=== PATIENT | female | born 1985 | race Caucasian/White ===

== ENCOUNTER 2021-05-23 20:33 | Emergency (ER) | payer OTHER, MEDICAID, SELFPAY ==
[2021-05-23] VITALS (7 sets, daily range): BP systolic 112–117; BP diastolic 73–74; PULSE 78–91; RESP 15–23; TEMP 37.3; O2SAT 100; BMI 24.3
--- NOTE | 2021-05-23 20:49 | DI.RAD.S_ITS ---
PROCEDURE: XR CHEST 1V INDICATIONS: chest pain TECHNIQUE: One view of the chest was acquired. COMPARISON: None. FINDINGS: Surgical changes and devices: None. Lungs and pleura: Lungs are clear. No pleural effusions or pneumothorax. Mediastinum: Mediastinal contours appear normal. Heart size is normal. Bones and chest wall: No suspicious bony lesions. Overlying soft tissues appear unremarkable. IMPRESSION: No acute cardiopulmonary abnormality. Dictated by: Héctor Devi M.D. on 05/23/2021 at 22:13 Approved by: Héctor Devi M.D. on 05/23/2021 at 22:14
--- NOTE | 2021-05-23 21:35 | ED_ITS ---
HPI - Chest Pain General Chief Complaint: Chest Pain Stated Complaint: CHEST PAIN Time Seen by Provider: 05/23/21 21:06 Source: patient Mode of arrival: Ambulatory Limitations: no limitations History of Present Illness HPI narrative: Patient is a 35-year-old female history of alcohol dependence, ascites, cirrhosis, GI bleeding, presenting with abdominal discomfort and heart palpitations. She was actually seen evaluated 5 days ago at [facility] for the same. She says her abdominal discomfort is not any worse she does not feel any did more distention in her abdomen that she did previously. Tonight she was having some palpitations and some mild chest discomfort. It has all gone now. She was not dizzy or lightheaded. She has been set up with a primary care provider whom she sees in a couple of days. She apparently has been sober is since December and then she relapsed but now is sober again. She recently moved to [facility] from [place]. She was previously admitted in [place] for multiple issues regarding cirrhosis. She currently denies any fever nausea vomiting dizziness lightheadedness painful or frequent urination no numbness tingling weakness she is not confused. Related Data Previous Rx's Medication Instructions Recorded hydrocodone 5 mg-acetaminophen 325 1 tab PO Q6H PRN #10 tab 05/24/21 mg tablet ondansetron 4 mg disintegrating 4 mg PO Q8H PRN #10 tab 05/24/21 tablet Allergies Allergy/AdvReac Type Severity Reaction Status Date / Time Penicillins Allergy Verified 05/23/21 20:40 Review of Systems Review of Systems Narrative: GENERAL: Denies chills, fatigue, malaise, fever, sweats, travel HEENT: Denies sinus pain, ear pain, sore throat, difficulty swallowing, neck pain RESPIRATORY: Denies dyspnea, cough, wheezing, hemoptysis, sputum. CARDIOVASCULAR: Palpitations GASTROINTESTINAL: See HPI : Denies dysuria, frequency, incontinence, hematuria, urinary retention, flank pain. MUSCULOSKELETAL: Denies weakness, joint pain, or bony pain SKIN: No rash, no erythema, no pruritus NEUROLOGIC: Denies weakness, dizziness, headache, numbness, change in speech, c onfusion PSYCHIATRIC: No concerning psychosocial issues. 12 point review of systems is negative except for those stated above and HPI Patient History Social History Smoking Status: Never smoker Smoking Status: Never smoker Substance Use Type: does not use Exam Initial Vital Signs Initial Vital Signs: Vital Signs Temperature 99.2 F 05/23/21 20:40 Pulse Rate 86 05/23/21 20:40 Respiratory Rate 15 05/23/21 20:40 Blood Pressure 112/73 05/23/21 20:40 Pulse Oximetry 100 05/23/21 20:40 GENERAL: Jaundiced 35-year-old female HEENT: Head atraumatic,EOMI, pupils reactive, face symmetric, [moist] mucous membranes CARDIOVASCULAR: Regular rate and rhythm without murmurs, rubs or gallops. RESPIRATORY: Breath sounds equal bilaterally, no wheezes rales or rhonchi. ABDOMEN: Soft, no significant distension no fluid wave mildly tender in left lower quadrant no guarding or rebound : No CVA tenderness EXTREMITIES: Normal range of motion, no clubbing or edema. Neurovascularly intact NEUROLOGICAL: Alert and oriented x4.Normal gait and speech. No tremors SKIN: Warm, dry, no laceration, no petechiae, no rashes or lesions. Jaundice Course Orders Ordered: ED Orders 05/23/21 20:49 XR chest 1V Stat EKG-12 Lead Stat 05/23/21 21:43 Complete Blood Count AUTO DIFF Stat Comprehensive Metabolic Panel Stat Lipase Stat Prothrombin Time INR Stat Troponin & CK Cardiac Panel Stat 05/23/21 22:22 US abdomen limited Stat 05/24/21 00:16 Urine Culture Stat Urine Microscopic Stat Discontinued Medications Hydrocodone Bitart/Acetaminophen (Hydrocodone/Acet 5/325 Prepack) 1 bottle MISC SEEINSTR ONE Stop: 05/24/21 00:20 Last Admin: 05/24/21 00:33 Dose: 1 bottle Documented by: ANUJ Hydromorphone HCl (Hydromorphone 2 Mg Inj) 1 mg SUBCUT Q4H PRN PRN Reason: Pain, Severe (7-10) Last Admin: 05/23/21 23:25 Dose: 1 mg Documented by: ANUJ Ondansetron HCl (Ondansetron 4 Mg Odt) 4 mg SL NOW ONE Stop: 05/23/21 23:03 Last Admin: 05/23/21 23:26 Dose: 4 mg Documented by: ANUJ Vital Signs Vital signs: Vital Signs - 8 hr 05/23/21 20:40 05/23/21 21:32 05/23/21 21:33 Temperature 99.2 F Pulse Rate 86 91 H 90 Respiratory Rate 15 Blood Pressure 112/73 117/74 Blood Pressure [Left Arm] Pulse Oximetry 100 100 100 05/23/21 22:00 05/23/21 22:30 05/23/21 23:00 Temperature Pulse Rate 80 78 80 Respiratory Rate 23 17 16 Blood Pressure Blood Pressure [Left Arm] Pulse Oximetry 100 100 100 05/23/21 23:30 05/24/21 00:00 05/24/21 00:30 Temperature Pulse Rate 82 88 84 Respiratory Rate 16 16 19 Blood Pressure Blood Pressure [Left Arm] Pulse Oximetry 100 99 100 05/24/21 00:31 05/24/21 00:33 Temperature Pulse Rate 84 86 Respiratory Rate Blood Pressure 99/58 L Blood Pressure [Left Arm] 99/58 L Pulse Oximetry 100 99 MDM - Chest Pain Lab Data Result diagrams: 05/23/21 21:43 05/23/21 21:43 Labs: Lab Results 05/23/21 05/23/21 05/23/21 Range/Units 21:43 21:43 21:43 WBC 5.2 (4.5-11.0) X10^3/uL RBC 2.19 L (4.0-5.2) X10^6/uL Hgb 8.8 L (12.0-16.0) g/dL Hct 25.2 L (36-46) % MCV 115.1 H (80-100) fL MCH 40.0 H (26-34) PG MCHC 34.8 (30-36) % RDW 12.3 (11.6-14.8) % Plt Count 196 (150-400) X10^3/uL Neut % (Auto) 56.8 (50-75) % Lymph % (Auto) 34.0 (25-40) % [place] % (Auto) 6.9 (3-14) % Eos % (Auto) 1.9 L (2-4) % Baso % (Auto) 0.4 (0-2) % Neut # (Auto) 2900 (3590-4166) /uL Lymph # (Auto) 1800 (9921-2573) /uL [place] # (Auto) 400 (0-900) /uL Eos # (Auto) 100 (0-450) /uL Baso # (Auto) 0 (0-100) /uL RBC Morphology See below Macrocytosis 2+ H PT 17.7 H (10.1-12.7) SECONDS INR 1.6 H (0.9-1.3) Sodium 142 (137-145) mmol/L Potassium 3.7 (3.4-5.1) mmol/L Chloride 110 H (98-107) mmol/L Carbon Dioxide 23 (22-32) mmol/L BUN 8 (7-17) mg/dL Creatinine 0.84 (0.52-1.04) mg/dL Estimated GFR > 60.0 (>60) mL/min BUN/Creatinine Ratio 9.5 (6-22) Glucose 89 (70-100) mg/dL Calcium 9.1 (8.4-10.2) mg/dL Total Bilirubin 8.9 H (0.2-1.3) mg/dL AST 130 H (14-36) IU/L ALT 41 H (<35) IU/L Alkaline Phosphatase 91 (38-126) U/L Total Creatine Kinase 32 (30-135) U/L CK-MB (CK-2) TNP CK-MB (CK-2) Rel Index TNP Troponin I < 0.012 (0.01-0.034) ng/mL Total Protein 6.9 (6.3-8.2) g/dL Albumin 3.6 (3.5-5.0) g/dL Globulin 3.3 (1.7-4.1) g/dL Albumin/Globulin Ratio 1.1 (1.0-2.8) Lipase 84 (23-300) U/L Urine RBC (0-5/HPF) Urine WBC (0-5/HPF) Ur Squamous Epith Cells (0-5/HPF) Urine Bacteria (None) Urine Mucus (Negative) Ur Culture Indicated? 05/24/21 Range/Units 00:16 WBC (4.5-11.0) X10^3/uL RBC (4.0-5.2) X10^6/uL Hgb (12.0-16.0) g/dL Hct (36-46) % MCV (80-100) fL MCH (26-34) PG MCHC (30-36) % RDW (11.6-14.8) % Plt Count (150-400) X10^3/uL Neut % (Auto) (50-75) % Lymph % (Auto) (25-40) % [place] % (Auto) (3-14) % Eos % (Auto) (2-4) % Baso % (Auto) (0-2) % Neut # (Auto) (1325-5199) /uL Lymph # (Auto) (6273-5952) /uL [place] # (Auto) (0-900) /uL Eos # (Auto) (0-450) /uL Baso # (Auto) (0-100) /uL RBC Morphology Macrocytosis PT (10.1-12.7) SECONDS INR (0.9-1.3) Sodium (137-145) mmol/L Potassium (3.4-5.1) mmol/L Chloride (98-107) mmol/L Carbon Dioxide (22-32) mmol/L BUN (7-17) mg/dL Creatinine (0.52-1.04) mg/dL Estimated GFR (>60) mL/min BUN/Creatinine Ratio (6-22) Glucose (70-100) mg/dL Calcium (8.4-10.2) mg/dL Total Bilirubin (0.2-1.3) mg/dL AST (14-36) IU/L ALT (<35) IU/L Alkaline Phosphatase (38-126) U/L Total Creatine Kinase (30-135) U/L CK-MB (CK-2) CK-MB (CK-2) Rel Index Troponin I (0.01-0.034) ng/mL Total Protein (6.3-8.2) g/dL Albumin (3.5-5.0) g/dL Globulin (1.7-4.1) g/dL Albumin/Globulin Ratio (1.0-2.8) Lipase (23-300) U/L Urine RBC 0-1/hpf (0-5/HPF) Urine WBC 1-5/hpf (0-5/HPF) Ur Squamous Epith Cells 1-5 /hpf (0-5/HPF) Urine Bacteria Many (>30) H (None) Urine Mucus 3+ H (Negative) Ur Culture Indicated? Specimen cultured Point of Care Testing Test Results Negative Urine Dip Bedside Urine Glucose Negative Bedside Urine Bilirubin ++ 2 Bedside Urine Ketone - Negative Urine Specific [place] 1.020 Bedside Urine Occult Blood - Negative Bedside Urine Protein +/- 15 Bedside Urine Urobilinogen +/- 1mg Bedside Urine Nitrite - Negative Bedside Urine Leukocytes + 70 Esterase Imaging Data US - abdomen: Radiologist's Impression: PROCEDURE: US ABDOMEN LIMITED ? INDICATIONS:? ASCITES ? TECHNIQUE:? Real-time focused scanning was performed of the abdomen, with image document ation.? ? COMPARISON:? None. ? FINDINGS:? Moderate ascites is noted in all 4 quadrants. ? IMPRESSION:? Moderate ascites. ? ? Dictated by: Héctor Devi M.D. on 05/23/2021 at 23:54 ? ? Approved by: Héctor Devi M.D. on 05/23/2021 at 23:55 ? MDM Narrative Medical decision making narrative: MELD-Na 20 Patient is extremely difficult I be start I looked on ultrasound. We were fortunately able to get lab draw. Blood work actually looks very stable and relatively un changed her even improved from [facility]. Bilirubin is trending down words it was previously 11, today is 8.9. Hemoglobin was previously 8.3 with hematocrit 25, today hemoglobin 8.8 and hematocrit 25.2. Overall her numbers actually appear very stable. She appears alert oriented and well. She has close follow-up outpatient already arranged in 2 days. At this time she has moderate ascites on ultrasound she had an abdominal CT earlier this week she is not having significant abdominal pain. Unlikely to have any complication from gastric sleeve lower ascites. She actually said that there is was diagnostic fluid drawn in the ED and she said it was not infectious this is confirmed by records. I do not have any suspicion that she has SBP at this time. At this time she has chronic stable underlying cirrhosis. Meld sodium score is 20 according to records it was previously 28. At this time she does not meet any admission criteria she has follow-up in 2 days. Recommend she follow up with primary care provider Discharge Plan Departure Patient Disposition: Home Clinical Impression: Palpitations, Ascites due to alcoholic cirrhosis Instructions: Arrhythmias, DI for Ascites Activity Restrictions/Additional Instructions: *You have been diagnosed with ascites and palpitation *What to do: At this time blood work overall looks stable. Your likely experiencing some heart palpitations we have not noticed any abnormality on the monitor or your EKG. Please follow-up with your primary care provider you may need a paracentesis again in the near future however not emergently today. *Continue to take medications as directed [place] 1 tablet every 6 hours only if needed for severe pain Zofran 4 mg every 8 hours if needed for nausea or vomiting *Follow up with your primary care provider in 2-3 days *Return to ER if you should have abdominal pain, fever, chest pain palpitations dizziness lightheadedness or any new, worsening or concerning symptoms CONTROLLED SUBSTANCE DISCHARGE (Narcotoic/benzodiazepine/Flexeril/Phenergan) 1. You have been prescribed narcotic medications, it does have acetaminophen/Tylenol/paracetamol in it, DO NOT TAKE MORE THAN 4,00mg in 24 hours of Tylenol. TRAMADOL DOES NOT CONTAIN TYLENOL 2. Please understand that we cannot provide further refills of narcotics, benzodiazepines or controlled substances through the ED and her pain management will need to be through your provider. 3. While on these medications you cannot drive or operate heavy machinery. 4. You cannot sign legal documents or perform any duties such as this. 5. As long as you're taking opiate pain medications he should also be taking a stool softener such as Colace, Dulcolax, MiraLAX or prune juice, to help avoid constipation. Prescriptions: New hydrocodone-acetaminophen 5-325 mg tablet 1 tab PO Q6H PRN (Reason: pain) Qty: 10 RF: 0 ondansetron 4 mg tablet,disintegrating 4 mg PO Q8H PRN (Reason: nausea and vomiting) Qty: 10 RF: 0
[2021-05-23 22:08] LABS: Add Manual Diff / Slide Review NO; Basophils Absolute Auto 0 /uL (0-100); Basophils Percent Auto 0.4 % (0-2); Eosinophils Absolute Auto 100 /uL (0-450); Eosinophils Percent Auto 1.9 % (2-4); Hematocrit 25.2 % (36-46); Hemoglobin 8.8 g/dL (12.0-16.0); Lymphocytes Absolute Auto 1800 /uL (1100-4500); Mean Corpuscular HGB Conc 34.8 % (30-36); Mean Corpuscular Volume 115.1 fL (80-100); Monocytes Absolute Auto 400 /uL (0-900); Monocytes Percent Auto 6.9 % (3-14); Neutrophils Absolute Auto 2900 /uL (1500-7000); Neutrophils Percent Auto 56.8 % (50-75); Platelet Count 196 X10^3/uL (150-400); Red Blood Cell Count 2.19 X10^6/uL (4.0-5.2); Red Cell Distribution Width 12.3 % (11.6-14.8); White Blood Cell Count 5.2 X10^3/uL (4.5-11.0)
[2021-05-23 22:09] LABS: INR 1.6 (0.9-1.3); Prothrombin Time 17.7 SECONDS (10.1-12.7)
[2021-05-23 22:13] LABS: Alanine Aminotransferase 41 IU/L (<35); Albumin 3.6 g/dL (3.5-5.0); Albumin Globulin Ratio 1.1 (1.0-2.8); Alkaline Phosphatase 91 U/L (38-126); Aspartate Aminotransferase 130 IU/L (14-36); BUN Creatinine Ratio 9.5 (6-22); Bilirubin Total 8.9 mg/dL (0.2-1.3); Blood Urea Nitrogen 8 mg/dL (7-17); Calcium 9.1 mg/dL (8.4-10.2); Carbon Dioxide 23 mmol/L (22-32); Chloride 110 mmol/L (98-107); Creatine Kinase 32 U/L (30-135); Estimated Glomerular Filt Rate > 60.0 mL/min (>60); Globulin 3.3 g/dL (1.7-4.1); Glucose 89 mg/dL (70-100); HEMOLYSIS < 15 (0-50); Lipase 84 U/L (23-300); Potassium 3.7 mmol/L (3.4-5.1); Sodium 142 mmol/L (137-145); Total Protein 6.9 g/dL (6.3-8.2)
--- NOTE | 2021-05-23 22:22 | DI.US.S_ITS ---
PROCEDURE: US ABDOMEN LIMITED INDICATIONS: ASCITES TECHNIQUE: Real-time focused scanning was performed of the abdomen, with image documentation. COMPARISON: None. FINDINGS: Moderate ascites is noted in all 4 quadrants. IMPRESSION: Moderate ascites. Dictated by: Héctor Devi M.D. on 05/23/2021 at 23:54 Approved by: Hcétor Devi M.D. on 05/23/2021 at 23:55
[2021-05-23 22:25] LABS: Troponin I < 0.012 ng/mL (0.01-0.034)
[2021-05-23 22:28] LABS: Macrocytosis 2+
[2021-05-23] MEDS: HYDROMORPHONE 2 MG INJ 1 MG SUBCUT (23:25)
[2021-05-23] MEDS: ONDANSETRON 4 MG ODT SL (23:26)
[2021-05-24] VITALS: PULSE 88; RESP 16; O2SAT 99
[2021-05-24 00:30] VITALS: PULSE 84; RESP 19; O2SAT 100
[2021-05-24 00:31] VITALS: BP 99/58; PULSE 84; O2SAT 100
[2021-05-24 00:33] VITALS: BP 99/58; PULSE 86; O2SAT 99
[2021-05-24] MEDS: HYDROCODONE/ACET 5/325 PREPACK 1 BOTTLE MISC (00:33)
[2021-05-24 00:34] LABS: RBC Urine 0-1/HPF (0-5/HPF); WBC Urine 1-5/HPF (0-5/HPF)
[2021-05-24 00:35] LABS: Bacteria Urine Many (>30); Culture Indicated Urine Specimen Cultured; Mucus Urine 3+ (Negative); Squamous Epithelial Cell Urine 1-5 /HPF (0-5/HPF)
== END 2021-05-24 00:49 | disposition home or self-care (01) ==
PROVIDERS: Emergency Provider Emergency Medicine
DX: K70.31 Alcoholic cirrhosis of liver with ascites (principal); R00.2 Palpitations; R07.9 Chest pain, unspecified
CPT/HCPCS: 36415; 71045; 76705; 80053; 81003; 81015; 81025; 82550; 83690; 84484; 85025; 85610; 87086; 93005; 93010; 99284; J1170

== ENCOUNTER → 2021-06-18 13:42 | Outpatient (CLI) | payer OTHER, MEDICAID, SELFPAY ==
[2021-06-18 15:05] LABS: BUN Creatinine Ratio 14.9 (6-22); Blood Urea Nitrogen 13 mg/dL (7-17); Calcium 10.1 mg/dL (8.4-10.2); Carbon Dioxide 26 mmol/L (22-32); Chloride 102 mmol/L (98-107); Estimated Glomerular Filt Rate > 60.0 mL/min (>60); Glucose 93 mg/dL (70-100); HEMOLYSIS < 15 (0-50); Sodium 139 mmol/L (137-145)
== END ==
PROVIDERS: Referring Provider Nurse Practitioner; Visit Provider Nurse Practitioner
DX: K70.31 Alcoholic cirrhosis of liver with ascites (principal)
CPT/HCPCS: 36415; 80048

== ENCOUNTER 2021-06-27 01:28 | Emergency (ER) | payer OTHER, MEDICAID, SELFPAY ==
[2021-06-27 01:38] VITALS: BP 115/61; PULSE 120; RESP 18; TEMP 36.6; O2SAT 100
--- NOTE | 2021-06-27 01:54 | ED_ITS ---
HPI - Back Pain/Injury General Chief Complaint: Back Pain/Injury Stated Complaint: fall, low back pain Time Seen by Provider: 06/27/21 01:53 Source: patient Mode of arrival: Ambulatory Limitations: no limitations History of Present Illness HPI Narrative: This is a 35-year-old female comes emergency department with complaint of fall yesterday, Tuesday morning. Patient states she slipped and landed on her buttocks and then fell on about 5 more stairs sliding down on her buttocks. She states that she felt like she landed on her tailbone and has pain in her lower back tailbone region and into the left buttock towards the knee. She has chronic numbness and tingling in both lower extremities and has not had any change in the pattern of these. She states this is from alcohol abuse she takes gabapentin daily for this. Patient denies any loss of bowel or bladder control. No saddle anesthesia. She has tried Tylenol with minimal improvement pain. Patient does have a history of cirrhosis, she states her ascites has improved. She takes a diuretic, gabapentin and additional medication for mental health. Patient has had surgery on L4-L5 in the past and has been told that her decide re-herniated afterwards. She does occasionally have back pain but this is different and worse than typical. Patient denies tobacco, she has been sober from alcohol for 9 months, she denies any illicit. Related Data Previous Rx's Medication Instructions Recorded hydrocodone 5 mg-acetaminophen 325 1 tab PO Q6H PRN #10 tab 05/24/21 mg tablet ondansetron 4 mg disintegrating 4 mg PO Q8H PRN #10 tab 05/24/21 tablet diazepam 10 mg tablet (Valium) 10 mg PO TID PRN #10 tab 06/27/21 hydrocodone 5 mg-acetaminophen 325 1 tab PO Q6H PRN #7 tab 06/27/21 mg tablet Allergies Allergy/AdvReac Type Severity Reaction Status Date / Time Penicillins Allergy Verified 05/23/21 20:40 Review of Systems Review of Systems ROS Unobtainable: All systems reviewed & are unremarkable except as noted in HPI and below Patient History Social History Smoking Status: Never smoker Smoking Status: Never smoker Substance Use Type: does not use Exam Narrative Exam Narrative: GENERAL: Alert and oriented x three, female in mild distress. HEENT: Head normocephalic, atraumatic, EOMI, pupils reactive, face symmetric, moist mucous membranes NECK: Supple, full range of motion CARDIOVASCULAR: Regular rate and rhythm without murmurs, rubs or gallops. RESPIRATORY: Breath sounds equal bilaterally, no wheezes rales or rhonchi. ABDOMEN: Soft, nontender. Normoactive bowel sounds all 4 quadrants. No guarding or rebound, rigidity, no mass : No CVA tenderness BACK: No cervical, thoracic vertebral point tenderness. Patient is tender over L5/S1 and coccyx. She also has some tenderness over the left SI region. Has mildly decreased range of motion Rectal exam is deferred. Muscle strength is 5/5 in lower extremities, DTRs are 2/4 and lower extremities. Dorsalis pedis and tibialis pulses are 2+ and lower extremities. Sensation is intact in the lower extremities. EXTREMITIES: Normal range of motion, no clubbing or edema. Neurovascularly intact NEUROLOGICAL: Cranial nerves II through XII grossly intact. Moving all extremities SKIN: Warm, dry, no petechiae, no rashes or lesions. Initial Vital Signs Initial Vital Signs: Vital Signs Temperature 98 F 06/27/21 01:38 Pulse Rate 120 H 06/27/21 01:38 Respiratory Rate 18 06/27/21 01:38 Blood Pressure 115/61 06/27/21 01:38 Pulse Oximetry 100 06/27/21 01:38 Course Orders Ordered: ED Orders 06/27/21 02:02 XR lumbar spine 2-3V Stat Discontinued Medications Diazepam (Diazepam 5 Mg Tablet) 10 mg PO NOW ONE Stop: 06/27/21 02:03 Last Admin: 06/27/21 02:09 Dose: 10 mg Documented by: VERITO Ketorolac Tromethamine (Ketorolac 30 Mg/Ml Vial) 30 mg IM NOW ONE Stop: 06/27/21 02:03 Last Admin: 06/27/21 02:09 Dose: 30 mg Documented by: VERITO Reevaluation(s) Reevaluation #1: Patient is feeling more comfortable now. She was able to sleep here in the department for a period of time. Reviewed her imaging findings today. Time: 04:01 Vital Signs Vital signs: Vital Signs - 8 hr 06/27/21 01:38 06/27/21 04:08 Temperature 98 F Pulse Rate 120 H 88 Respiratory Rate 18 16 Blood Pressure 115/61 100/59 L Pulse Oximetry 100 98 [facility] - Back Pain/Injury Imaging Data Lspine xray: Radiologist's Impression: Moderate degenerative changes within the lower lumbar spine. No acute bony abnormalities present. Abnormal curvature of the spine, suggesting muscular spasm. [facility] Narrative Medical decision making narrative: Is a 35-year-old female comes with complaint of low back pain after a fall. Patient does have a history of prior back surgery with known herniated discs. She does not have other red flag symptoms although she was slightly tachycardic initially upon arrival she is appropriate heart rate on examination for myself. Patient's pain was improved with Toradol and Valium. She states she found the Valium most helpful. Patient's x-ray imaging shows degenerative changes. Return precautions were discussed with patient. She has follow-up on Tuesday with primary care. Discharge Plan Departure Patient Disposition: Home Clinical Impression: Low back pain Instructions: DI for Low Back Pain Activity Restrictions/Additional Instructions: Follow up with your physician for recheck this week if your symptoms are not improving. You may take pain medication 1 tab every 6 hours as needed. This medication can make you sleepy do not drive, perform hazardous activities or make any major decisions while taking it. This medication will make you constipated please take a stool softener once to twice daily until stools are soft and regular. You may take valium 1 tablet every 8 hours as needed for muscle spasm. Prescription sent to [facility] in [place] Please return if you are having rapidly worsening symptoms, uncontrolled pain, loss of bowel or bladder control, new numbness, weakness, loss of sensation, in the mid to lift or move her leg or other new or concerning symptoms. Prescriptions: New hydrocodone-acetaminophen 5-325 mg tablet 1 tab PO Q6H PRN (Reason: pain) Qty: 7 0RF diazepam [Valium] 10 mg tablet 10 mg PO TID PRN (Reason: muscle spasm) Qty: 10 0RF No Action hydrocodone-acetaminophen 5-325 mg tablet 1 tab PO Q6H PRN (Reason: pain) Qty: 10 0RF ondansetron 4 mg tablet,disintegrating 4 mg PO Q8H PRN (Reason: nausea and vomiting) Qty: 10 0RF Referrals: Miscellaneous,Doctor, MD [Primary Care Provider] -
--- NOTE | 2021-06-27 02:02 | DI.RAD.S_ITS ---
PROCEDURE: XR LUMBAR SPINE 2-3V INDICATIONS: fall, back pain L radicular pain, hx Lumbar back sx TECHNIQUE: 2 views of the lumbar spine were acquired. COMPARISON: None. FINDINGS: Bones: 5 [id number] vertebrae are present. There is normal bony alignment. No vertebral body compression fractures. No suspicious bony lesions. There is mild rightward curvature of the lumbar spine. Degenerative disc disease at L4-5 and L5-S1 with anterior osteophytes. Facet arthrosis at L4-5 and L5-S1 Soft tissues: Overlying bowel gas pattern is normal. No suspicious soft tissue calcifications. Status post cholecystectomy. An IUD is present in the pelvis midline. IMPRESSION: 1. Degenerative disc disease and facet arthrosis at L4-5 and L5-S1. 2. No acute abnormality. Dictated by: Héctor Devi M.D. on 06/27/2021 at 6:38 Approved by: Héctor Devi M.D. on 06/27/2021 at 6:39
[2021-06-27] MEDS: diazePAM 5 MG TABLET 10 MG PO (02:09)
[2021-06-27] MEDS: KETOROLAC 30 MG/ML VIAL IM (02:09)
[2021-06-27 04:08] VITALS: BP 100/59; PULSE 88; RESP 16; O2SAT 98
== END 2021-06-27 04:08 | disposition home or self-care (01) ==
PROVIDERS: Emergency Provider Emergency Medicine
DX: M54.50 Low back pain, unspecified (principal); Z98.890 Other specified postprocedural states
CPT/HCPCS: 72100; 96372; 99283; J1885

== ENCOUNTER 2021-07-17 15:18 | Emergency (ER) | payer OTHER, MEDICAID, SELFPAY ==
[2021-07-17] VITALS (10 sets, daily range): BP systolic 98–113; BP diastolic 60–69; PULSE 81–96; RESP 11–19; TEMP 36.6; O2SAT 97–100; BMI 23.4
--- NOTE | 2021-07-17 15:55 | DI.CT.S_ITS ---
PROCEDURE: CT HEAD/BRAIN WO CON INDICATIONS: fall, hit head TECHNIQUE: Noncontrast 4.5 mm thick angled axial sections acquired from the foramen magnum to the vertex, with coronal and sagittal reformats. For radiation dose reduction, the following was used: automated exposure control, adjustment of mA and/or kV according to patient size. COMPARISON: None. FINDINGS: Image quality: Excellent. CSF spaces: Basal cisterns are patent. No extra-axial fluid collections. Ventricles are normal in size and shape. Brain: No midline shift. No intracranial masses or hemorrhage. Charles-white matter interface is normal. Skull and face: Calvarium and visualized facial bones are intact, without suspicious lesions. Sinuses: Visualized sinuses and mastoids are clear. IMPRESSION: No acute intracranial disease process. Dictated by: Naima Little MD, PhD on 07/17/2021 at 16:18 Approved by: Naima Little MD, PhD on 07/17/2021 at 16:20
--- NOTE | 2021-07-17 16:17 | PC.NURSE ---
Addendum entered by Dawna Woodall R.N. 07/17/21 19:36: Patient took home med Midodrine 5mg with Dr Bryantools approval. Original Note: Patient with end stage liver failure per patient, hx of syncope recently. Reports that she felt light headed since waking up this morning, was walking to kitchen when she passed out unknown LOC, reports hitting her head but landed on butt first. C/o back pain and headache.
--- NOTE | 2021-07-17 16:33 | PC.NURSE ---
Took of patients earrings and put in medicine cup, put medicine cup in patient's purse with patient's acknowledgement.
--- NOTE | 2021-07-17 17:23 | ED.DIZZY ---
HPI - Dizziness General Chief Complaint: Syncope Stated Complaint: Blood pressure and passed out this morning Time Seen by Provider: 07/17/21 17:14 Source: patient Mode of arrival: Wheelchair Limitations: no limitations History of Present Illness HPI Narrative: The patient has a history of hypotension, liver failure, and ascites. She gave up alcohol for months ago, being told she had less than 10% chance of living at that time. She has improved, ascites improved dramatically. She requires Midodrine for hypotension. She was fixing breakfast this morning. She felt dizzy. She has been taking her medications. She was going to try to sit down, instead she fell to the floor striking the back of her head. She thinks her memory is intact. She has posterior headache, she still feels a little confused. She has posterior neck pain, as well as tailbone pain. She is wondering about her liver test, due to the confusion. Related Data Previous Rx's Medication Instructions Recorded hydrocodone 5 mg-acetaminophen 325 1 tab PO Q6H PRN #10 tab 05/24/21 mg tablet ondansetron 4 mg disintegrating 4 mg PO Q8H PRN #10 tab 05/24/21 tablet diazepam 10 mg tablet (Valium) 10 mg PO TID PRN #10 tab 06/27/21 hydrocodone 5 mg-acetaminophen 325 1 tab PO Q6H PRN #7 tab 06/27/21 mg tablet methocarbamol 750 mg tablet 750 mg PO Q6H PRN #30 tab 07/17/21 tramadol 50 mg tablet 50 mg PO Q6-8H PRN #20 tab 07/17/21 Allergies Allergy/AdvReac Type Severity Reaction Status Date / Time Penicillins Allergy Verified 07/15/21 09:10 Review of Systems Constitutional Constitutional: Reports as per HPI, Denies chills, Denies fever(s), Denies frequent falls and Reports headache(s) Comments: Disease as noted HPI. Eyes Eyes: Denies change in vision ENT Ears, Nose, Mouth, and Throat: Reports dizziness, Denies ear discharge, Denies facial pain, Reports headache(s), Reports neck pain and Denies sore throat Cardiovascular Cardiovascular: Denies chest pain, Denies syncope, Denies rapid heart rate, Denies pedal edema and Denies dyspnea Respiratory Respiratory: Denies cough and Denies dyspnea Gastrointestinal Gastrointestinal: Denies abdominal pain and Denies nausea Genitourinary Comments: She is not Musculoskeletal Musculoskeletal: Reports neck pain Integumentary/Breasts Skin/Breast: Denies rash and Denies jaundice Neurologic Neurologic: Reports confusion, Reports dizziness, Denies syncope, Denies frequent falls and Reports headache(s) Psychiatric Psychiatric: Reports confusion Hematologic/Lymphatic On Anticoagulants: No Patient History Medical History (Updated 07/17/21 @ 20:03 by Kirt Jovel MD) Alcoholic liver failure Hypotension Social History Smoking Status: Former smoker Smoking Status: Former smoker Substance Use Type: does not use Exam Initial Vital Signs Initial Vital Signs: Vital Signs Temperature 97.8 F 07/17/21 15:48 Pulse Rate 96 H 07/17/21 15:48 Respiratory Rate 16 07/17/21 15:48 Blood Pressure 113/61 07/17/21 15:48 Pulse Oximetry 97 07/17/21 15:48 Const General: cooperative, healthy appearing and No ill appearing HENMT Head: normal to inspection and scalp tenderness (Occipital scalp discomfort without palpable deformity) Ears: TM's normal bilaterally Mouth: oral mucosae normal Eyes General: appearance normal, both eyes and all related structures Pupils: PERRL EOM: EOM intact bilaterally Neck Neck: normal visual inspection and other (Slight tenderness over the C5-6 region of the lumbar spine.) Chest Chest: normal inspection of the chest Resp Effort & Inspection: normal respiratory effort Cardio Rate: regular rate Rhythm: regular rhythm Heart Sounds: S1 normal, S2 normal and no murmurs GI Inspection: normal to inspection and non-distended Palpation: soft Auscultation: normal bowel sounds Back/Spine/Pelvis Back: normal to inspection Other: Tenderness over the lumbar spine without palpable deformity. Course Course Course Narrative: The patient was given Dilaudid for pain initially. Ammonia levels normal. LFTs are reassuring. Apparently, compared to prior lab values, she is quite happy with her lab tests. She has headache, feels slightly confused, she appears to have a mild concussion. C-spine and L-spine were cleared x-rays. Head CT was benign. She is discharged home with tramadol for pain, Robaxin for neck and back spasm. She is improved at time of discharge. Orders Ordered: ED Orders 07/17/21 15:55 CT head/brain wo con Stat 07/17/21 16:07 Complete Blood Count AUTO DIFF Stat Comprehensive Metabolic Panel Stat Lipase Stat Troponin & CK Cardiac Panel Stat 07/17/21 18:11 Ammonia (NH3) Stat 07/17/21 18:57 XR cervical spine 2V or 3V Stat XR lumbar spine 2-3V Stat Discontinued Medications Hydromorphone HCl (Hydromorphone 1 Mg Inj) 1 mg IM NOW ONE Stop: 07/17/21 18:59 Last Admin: 07/17/21 19:05 Dose: 1 mg Documented by: JANICE Vital Signs Vital signs: Vital Signs - 8 hr 07/17/21 15:48 07/17/21 16:32 07/17/21 16:33 Temperature 97.8 F Pulse Rate 96 H 84 84 Respiratory Rate 16 15 19 Blood Pressure 113/61 103/65 Pulse Oximetry 97 99 100 07/17/21 17:00 07/17/21 17:30 07/17/21 18:00 Temperature Pulse Rate 81 86 83 Respiratory Rate 14 18 18 Blood Pressure 108/66 106/61 98/60 Pulse Oximetry 100 100 100 07/17/21 18:30 07/17/21 19:00 07/17/21 19:30 Temperature Pulse Rate 83 89 89 Respiratory Rate 14 16 13 Blood Pressure Pulse Oximetry 100 98 100 MDM - Dizziness Lab Data Result diagrams: 07/17/21 16:07 07/17/21 16:07 Labs: Lab Results 07/17/21 07/17/21 07/17/21 Range/Units 16:07 16:07 18:11 WBC 4.5 (4.5-11.0) X10^3/uL RBC 3.57 L (4.0-5.2) X10^6/uL Hgb 12.5 (12.0-16.0) g/dL Hct 35.7 L (36-46) % MCV 100.2 H (80-100) fL MCH 35.2 H (26-34) PG MCHC 35.1 (30-36) % RDW 12.9 (11.6-14.8) % Plt Count 178 (150-400) X10^3/uL Neut % (Auto) 46.7 L (50-75) % Lymph % (Auto) 42.7 H (25-40) % [place] % (Auto) 6.8 (3-14) % Eos % (Auto) 2.8 (2-4) % Baso % (Auto) 1.0 (0-2) % Neut # (Auto) 2100 (6256-0465) /uL Lymph # (Auto) 1900 (2462-2307) /uL [place] # (Auto) 300 (0-900) /uL Eos # (Auto) 100 (0-450) /uL Baso # (Auto) 0 (0-100) /uL Sodium 141 (137-145) mmol/L Potassium 3.1 L (3.4-5.1) mmol/L Chloride 105 (98-107) mmol/L Carbon Dioxide 28 (22-32) mmol/L BUN 17 (7-17) mg/dL Creatinine 1.00 (0.52-1.04) mg/dL Estimated GFR > 60.0 (>60) mL/min BUN/Creatinine Ratio 17.0 (6-22) Glucose 132 H (70-100) mg/dL Calcium 10.6 H (8.4-10.2) mg/dL Total Bilirubin 4.4 H (0.2-1.3) mg/dL AST 49 H (14-36) IU/L ALT 29 (<35) IU/L Alkaline Phosphatase 71 (38-126) U/L Ammonia 16 (9-30) umol/L Total Creatine Kinase 25 L (30-135) U/L CK-MB (CK-2) TNP CK-MB (CK-2) Rel Index TNP Troponin I < 0.012 (0.01-0.034) ng/mL Total Protein 9.2 H (6.3-8.2) g/dL Albumin 4.9 (3.5-5.0) g/dL Globulin 4.3 H (1.7-4.1) g/dL Albumin/Globulin Ratio 1.1 (1.0-2.8) Lipase 121 (23-300) U/L Imaging Data CT scan - head: Radiologist's Impression: No acute findings C-spine x-ray:: Radiologist's Impression: No acute findings L-spine x-ray:: Radiologist's Impression: No acute fracture seen. Discharge Plan Departure Patient Disposition: Home Clinical Impression: Concussion, Cervical myofascial strain, Acute lumbar myofascial strain Instructions: Whiplash, Concussion Activity Restrictions/Additional Instructions: Tylenol, low dosing as directed by your counter tender. Tramadol every 6 hours for added pain control. Robaxin every 6 hours for spasm. Apply ice packs to the back your head, neck and back frequently for the next 2 days. Continue your regular medications. Return here as needed. Prescriptions: New tramadol 50 mg tablet 50 mg PO Q6-8H PRN (Reason: pain) Qty: 20 0RF methocarbamol 750 mg tablet 750 mg PO Q6H PRN (Reason: spasm) Qty: 30 0RF No Action hydrocodone-acetaminophen 5-325 mg tablet 1 tab PO Q6H PRN (Reason: pain) Qty: 10 0RF ondansetron 4 mg tablet,disintegrating 4 mg PO Q8H PRN (Reason: nausea and vomiting) Qty: 10 0RF hydrocodone-acetaminophen 5-325 mg tablet 1 tab PO Q6H PRN (Reason: pain) Qty: 7 0RF diazepam [Valium] 10 mg tablet 10 mg PO TID PRN (Reason: muscle spasm) Qty: 10 0RF Referrals: Miscellaneous,Doctor, MD [Primary Care Provider] -
[2021-07-17 17:38] LABS: Add Manual Diff / Slide Review NO; Basophils Absolute Auto 0 /uL (0-100); Eosinophils Absolute Auto 100 /uL (0-450); Eosinophils Percent Auto 2.8 % (2-4); Hematocrit 35.7 % (36-46); Hemoglobin 12.5 g/dL (12.0-16.0); Lymphocytes Absolute Auto 1900 /uL (1100-4500); Lymphocytes Percent Auto 42.7 % (25-40); Mean Corpuscular HGB Conc 35.1 % (30-36); Mean Corpuscular Hemoglobin 35.2 PG (26-34); Mean Corpuscular Volume 100.2 fL (80-100); Monocytes Absolute Auto 300 /uL (0-900); Monocytes Percent Auto 6.8 % (3-14); Neutrophils Absolute Auto 2100 /uL (1500-7000); Neutrophils Percent Auto 46.7 % (50-75); Platelet Count 178 X10^3/uL (150-400); Red Blood Cell Count 3.57 X10^6/uL (4.0-5.2); Red Cell Distribution Width 12.9 % (11.6-14.8); White Blood Cell Count 4.5 X10^3/uL (4.5-11.0)
[2021-07-17 17:44] LABS: Alanine Aminotransferase 29 IU/L (<35); Albumin 4.9 g/dL (3.5-5.0); Albumin Globulin Ratio 1.1 (1.0-2.8); Alkaline Phosphatase 71 U/L (38-126); Aspartate Aminotransferase 49 IU/L (14-36); Bilirubin Total 4.4 mg/dL (0.2-1.3); Blood Urea Nitrogen 17 mg/dL (7-17); Calcium 10.6 mg/dL (8.4-10.2); Carbon Dioxide 28 mmol/L (22-32); Chloride 105 mmol/L (98-107); Creatine Kinase 25 U/L (30-135); Estimated Glomerular Filt Rate > 60.0 mL/min (>60); Globulin 4.3 g/dL (1.7-4.1); Glucose 132 mg/dL (70-100); HEMOLYSIS < 15 (0-50); Lipase 121 U/L (23-300); Potassium 3.1 mmol/L (3.4-5.1); Sodium 141 mmol/L (137-145); Total Protein 9.2 g/dL (6.3-8.2)
[2021-07-17 17:56] LABS: Troponin I < 0.012 ng/mL (0.01-0.034)
[2021-07-17 18:33] LABS: Ammonia (NH3) 16 umol/L (9-30)
--- NOTE | 2021-07-17 18:57 | DI.RAD.S_ITS ---
PROCEDURE: XR CERVICAL SPINE 2V OR 3V INDICATIONS: Lower cervical pain, status post fall. TECHNIQUE: 3 view(s) of the cervical spine were acquired. COMPARISON: None. FINDINGS: Bones: No fractures or dislocations to the T1 level. The lateral masses of C1 appear intact on the odontoid view. No suspicious bony lesions. Soft tissues: No prevertebral soft tissue swelling. IMPRESSION: No evidence acute cervical fracture or dislocation. Dictated by: Leo Frausto M.D. on 07/17/2021 at 19:41 Approved by: Leo Frausto M.D. on 07/17/2021 at 19:42
--- NOTE | 2021-07-17 18:57 | DI.RAD.S_ITS ---
PROCEDURE: XR LUMBAR SPINE 2-3V INDICATIONS: Lumbar pain status post fall TECHNIQUE: 3 views of the lumbar spine were acquired. COMPARISON: [facility], CR, XR LUMBAR SPINE 2-3V, 06/27/2021, 1:58. FINDINGS: Bones: 5 [id number] vertebrae are present. There is normal bony alignment. No vertebral body compression fractures. No suspicious bony lesions. Lower lumbar facet arthropathy. Soft tissues: Overlying bowel gas pattern is normal. No suspicious soft tissue calcifications. IMPRESSION: Lower lumbar facet arthropathy. No evidence acute bony abnormality of the lumbar spine. If clinical suspicion and/or symptoms persist, further assessment with repeat plain films, or advanced imaging (e.g., CT, MRI, or bone scan) may be helpful for further assessment. Dictated by: Leo Frausto M.D. on 07/17/2021 at 19:43 Approved by: Leo Frausto M.D. on 07/17/2021 at 19:45
[2021-07-17] MEDS: HYDROMORPHONE 1 MG INJ IM (19:05)
[2021-07-17] MEDS: TRAMADOL 50 MG PREPACK 1 BOTTLE MISC (19:54)
[2021-07-17] MEDS: methocarbamoL 500 MG TABLET 750 MG PO (19:55)
== END 2021-07-17 20:05 | disposition home or self-care (01) ==
PROVIDERS: Emergency Provider Emergency Medicine
DX: S06.0X9A Concussion with loss of consciousness of unspecified duration, initial encounter (principal); S16.1XXA Strain of muscle, fascia and tendon at neck level, initial encounter; S39.012A Strain of muscle, fascia and tendon of lower back, initial encounter; W18.30XA Fall on same level, unspecified, initial encounter
CPT/HCPCS: 36415; 70450; 72040; 72100; 80053; 82140; 82550; 83690; 84484; 85025; 96372; 99284; J1170

== ENCOUNTER 2021-07-21 21:58 | Emergency (ER) | payer OTHER, MEDICAID, SELFPAY ==
[2021-07-21 22:12] VITALS: BP 115/63; PULSE 83; RESP 18; TEMP 36.6; O2SAT 100; BMI 23.4
[2021-07-21 22:34] LABS: COVID19 -Nasal RAPID Negative (Negative)
--- NOTE | 2021-07-21 22:38 | PC.NURSE ---
Patient's keys given to harrison Keith.
--- NOTE | 2021-07-21 23:04 | ED.GENADULT ---
HPI - General Adult General Chief complaint: Upper Respiratory Symptoms Stated complaint: covid symptoms, exposure Time Seen by Provider: 07/21/21 22:13 Source: family Mode of arrival: Ambulatory History of Present Illness HPI narrative: Patient is a 34-year-old female. She has been vaccinated against COVID. Her boyfriend whom with she lives is unvaccinated and tested positive today. Patient states she is having some congestion and a cough and runny nose. Has not tried anything for her symptoms prior to arrival Related Data Previous Rx's Medication Instructions Recorded hydrocodone 5 mg-acetaminophen 325 1 tab PO Q6H PRN #10 tab 05/24/21 mg tablet ondansetron 4 mg disintegrating 4 mg PO Q8H PRN #10 tab 05/24/21 tablet diazepam 10 mg tablet (Valium) 10 mg PO TID PRN #10 tab 06/27/21 hydrocodone 5 mg-acetaminophen 325 1 tab PO Q6H PRN #7 tab 06/27/21 mg tablet methocarbamol 750 mg tablet 750 mg PO Q6H PRN #30 tab 07/17/21 tramadol 50 mg tablet 50 mg PO Q6-8H PRN #20 tab 07/17/21 Allergies Allergy/AdvReac Type Severity Reaction Status Date / Time Penicillins Allergy Verified 07/15/21 09:10 Review of Systems Constitutional Constitutional: Denies fever(s) ENT Ears, Nose, Mouth, and Throat: Reports system reviewed and no additional complaints, except as documented Cardiovascular Cardiovascular: Reports system reviewed and no additional complaints, except as documented Respiratory Respiratory: Reports system reviewed and no additional complaints, except as documented Integumentary/Breasts Skin/Breast: Reports system reviewed and no additional complaints, except as documented Hematologic/Lymphatic On Anticoagulants: No Patient History Medical History Alcoholic liver failure Hypotension Social History Smoking Status: Former smoker Smoking Status: Former smoker Substance Use Type: does not use Exam Initial Vital Signs Initial Vital Signs: Vital Signs Temperature 97.8 F 07/21/21 22:12 Pulse Rate 83 07/21/21 22:12 Respiratory Rate 18 07/21/21 22:12 Blood Pressure 115/63 07/21/21 22:12 Pulse Oximetry 100 07/21/21 22:12 HENMT Head: normal to inspection and normocephalic Resp Effort & Inspection: normal respiratory effort Cardio Rate: regular rate Skin General: no rashes or lesions noted Neuro General: patient alert, patient awake and moves all extremities Extrem General: normal to inspection Psych Appearance: grossly normal Course Orders Ordered: ED Orders 07/21/21 22:05 COVID19 -Nasal swab/Pre-Proc Stat Vital Signs Vital signs: Vital Signs - 8 hr 07/21/21 22:12 Temperature 97.8 F Pulse Rate 83 Respiratory Rate 18 Blood Pressure 115/63 Pulse Oximetry 100 Medical Decision Making Lab Data Labs: Lab Results 07/21/21 Range/Units 22:05 SARS-CoV-2 (PCR) Negative (Negative) MDM Narrative Medical decision making narrative: Patient's COVID test was negative. She is not hypoxic. No respiratory distress. We did discuss the potential that it is too early for a COVID test to be positive given her exposure history. Informed her that if she develops symptoms that she should assume that she is positive in quarantine following current CDC guidelines. Patient was given return precautions. She expressed understanding and agreement. Discharge Plan Departure Patient Disposition: Home Clinical Impression: Encounter for laboratory testing for COVID-19 virus Instructions: DI for COVID-19 (Suspected or Confirmed ) Activity Restrictions/Additional Instructions: Your COVID test today is negative. Please follow all CDC guidelines with regard to quarantine in given your exposure. Return to the emergency department for any new or worsening symptoms. Prescriptions: No Action hydrocodone-acetaminophen 5-325 mg tablet 1 tab PO Q6H PRN (Reason: pain) Qty: 10 0RF ondansetron 4 mg tablet,disintegrating 4 mg PO Q8H PRN (Reason: nausea and vomiting) Qty: 10 0RF hydrocodone-acetaminophen 5-325 mg tablet 1 tab PO Q6H PRN (Reason: pain) Qty: 7 0RF diazepam [Valium] 10 mg tablet 10 mg PO TID PRN (Reason: muscle spasm) Qty: 10 0RF tramadol 50 mg tablet 50 mg PO Q6-8H PRN (Reason: pain) Qty: 20 0RF methocarbamol 750 mg tablet 750 mg PO Q6H PRN (Reason: spasm) Qty: 30 0RF
== END 2021-07-21 23:08 | disposition home or self-care (01) ==
PROVIDERS: Emergency Provider Emergency Medicine
DX: R09.81 Nasal congestion (principal); R05.9 Cough, unspecified; Z20.822 Contact with and (suspected) exposure to COVID-19
CPT/HCPCS: 87635; 99281; 99282; C9803

== ENCOUNTER 2021-08-08 07:15 | Emergency (ER) | payer OTHER, MEDICAID, SELFPAY ==
[2021-08-08] VITALS (12 sets, daily range): BP systolic 83–111; BP diastolic 44–59; PULSE 98–117; RESP 20; TEMP 37.8–39.6; O2SAT 96–100
[2021-08-08 08:29] LABS: Add Manual Diff / Slide Review NO; Basophils Absolute Auto 0 /uL (0-100); Basophils Percent Auto 0.3 % (0-2); Eosinophils Absolute Auto 0 /uL (0-450); Eosinophils Percent Auto 0.8 % (2-4); Hematocrit 36.5 % (36-46); Hemoglobin 12.7 g/dL (12.0-16.0); Lymphocytes Absolute Auto 400 /uL (1100-4500); Lymphocytes Percent Auto 7.7 % (25-40); Mean Corpuscular HGB Conc 34.8 % (30-36); Mean Corpuscular Hemoglobin 34.4 PG (26-34); Mean Corpuscular Volume 98.7 fL (80-100); Monocytes Absolute Auto 300 /uL (0-900); Monocytes Percent Auto 6.8 % (3-14); Neutrophils Absolute Auto 4300 /uL (1500-7000); Neutrophils Percent Auto 84.4 % (50-75); Platelet Count 106 X10^3/uL (150-400); White Blood Cell Count 5.1 X10^3/uL (4.5-11.0)
[2021-08-08 08:35] LABS: Alanine Aminotransferase 31 IU/L (<35); Albumin 4.2 g/dL (3.5-5.0); Albumin Globulin Ratio 1.3 (1.0-2.8); Alkaline Phosphatase 52 U/L (38-126); Aspartate Aminotransferase 55 IU/L (14-36); BUN Creatinine Ratio 20.4 (6-22); Bilirubin Total 3.2 mg/dL (0.2-1.3); Blood Urea Nitrogen 19 mg/dL (7-17); Calcium 10.1 mg/dL (8.4-10.2); Carbon Dioxide 24 mmol/L (22-32); Chloride 105 mmol/L (98-107); Estimated Glomerular Filt Rate > 60.0 mL/min (>60); Globulin 3.3 g/dL (1.7-4.1); Glucose 107 mg/dL (70-100); HEMOLYSIS 22 (0-50); Potassium 4.8 mmol/L (3.4-5.1); Sodium 137 mmol/L (137-145); Total Protein 7.5 g/dL (6.3-8.2)
[2021-08-08] MEDS: HYDROMORPHONE 0.5 MG INJ IV (09:00)
[2021-08-08] MEDS: SODIUM CHLORIDE 0.9% 1,000 ML 1000 ML IV (09:00)
[2021-08-08] MEDS: METOCLOPRAMIDE 10 MG/2 ML INJ IV (09:00)
[2021-08-08] MEDS: KETOROLAC 30 MG/ML VIAL 15 MG IV (09:00)
[2021-08-08 09:08] LABS: COVID19 -Nasal RAPID Negative (Negative)
--- NOTE | 2021-08-08 10:13 | ED_ITS ---
HPI - General Adult General Chief complaint: Fever Stated complaint: Fever, tachy from booster Time Seen by Provider: 08/08/21 07:23 Source: patient Mode of arrival: EMS History of Present Illness HPI narrative: 35-year-old woman with a history of alcohol related end-stage liver disease who presents today complaining of feeling generally unwell, myalgias, headaches all developing after her COVID booster. She had mild symptoms only after her 2nd shot. She describes high temperatures this morning. No significant cough, no vomiting diffuse abdominal pain, no diarrhea. Related Data Previous Rx's Medication Instructions Recorded hydrocodone 5 mg-acetaminophen 325 1 tab PO Q6H PRN #10 tab 05/24/21 mg tablet ondansetron 4 mg disintegrating 4 mg PO Q8H PRN #10 tab 05/24/21 tablet diazepam 10 mg tablet (Valium) 10 mg PO TID PRN #10 tab 06/27/21 hydrocodone 5 mg-acetaminophen 325 1 tab PO Q6H PRN #7 tab 06/27/21 mg tablet methocarbamol 750 mg tablet 750 mg PO Q6H PRN #30 tab 07/17/21 tramadol 50 mg tablet 50 mg PO Q6-8H PRN #20 tab 07/17/21 Allergies Allergy/AdvReac Type Severity Reaction Status Date / Time Penicillins Allergy Verified 07/15/21 09:10 Review of Systems Review of Systems Narrative: Remainder of complete review of systems is otherwise unremarkable except for that included in the HPI. Patient History Medical History Abnormal Pap smear of cervix Alcoholic liver failure Anemia Anxiety Chicken pox GERD (gastroesophageal reflux disease) Hypotension Social History Smoking Status: Former smoker Smoking Status: Former smoker Substance Use Type: does not use Exam Initial Vital Signs Initial Vital Signs: Vital Signs Temperature 103.2 F H 08/08/21 07:24 Pulse Rate 108 H 08/08/21 07:24 Respiratory Rate 20 08/08/21 07:24 Blood Pressure 111/58 L 08/08/21 07:24 Pulse Oximetry 100 08/08/21 07:24 General: Chronically ill-appearing, uncomfortable secondary to fever and myalgias but Able to give a complete and coherent history. HEENT: Moist mucous membranes, mildly jaundiced sclera with reactive pupils, Neck: No JVD, supple Respiratory: Lungs are clear to auscultation, no wheezing no rales no rhonchi. Full and symmetrical air movement Cardiac: Tachycardic butRegular rate and rhythm no murmurs no bruits Abdomen: Soft, mild diffuse tenderness without rebound or guarding good bowel tones, no obvious ascites no flank pain Skin: Warm and dry, multiple telangiectasias over her upper chest Neurologic: Globally weak but Grossly neurologically intact with no obvious asymmetries or abnormalities Extremities: No trauma, well perfused Psych: Cooperative, appropriate insight and affect Course Orders Ordered: Discontinued Medications Hydromorphone HCl (Hydromorphone 0.5 Mg Inj) 0.5 mg IV NOW ONE Stop: 08/08/21 08:24 Last Admin: 08/08/21 09:00 Dose: 0.5 mg Documented by: LOWELL Sodium Chloride (Normal Saline 0.9%) 1,000 mls @ 1,000 mls/hr IV BOLUS ONE Stop: 08/08/21 09:22 Last Infusion: 08/08/21 10:38 Dose: 0 mls/hr Documented by: Admin: 08/08/21 09:00 Dose: 1,000 mls/hr Documented by: LOWELL Ketorolac Tromethamine (Ketorolac 30 Mg/Ml Vial) 15 mg IV NOW ONE Stop: 08/08/21 08:24 Last Admin: 08/08/21 09:00 Dose: 15 mg Documented by: LOWELL Metoclopramide HCl (Metoclopramide 10 Mg/2 Ml Inj) 10 mg IV NOW ONE Stop: 08/08/21 08:24 Last Admin: 08/08/21 09:00 Dose: 10 mg Documented by: LOWELL Oxycodone HCl (Oxycodone Ir 5 Mg Tablet) 5 mg PO NOW ONE Stop: 08/08/21 10:21 Last Admin: 08/08/21 10:37 Dose: 5 mg Documented by: LOWELL Vital Signs Vital signs: Vital Signs - 8 hr 08/08/21 07:24 08/08/21 09:09 08/08/21 09:30 Temperature 103.2 F H Pulse Rate 108 H 106 H 109 H Respiratory Rate 20 Blood Pressure 111/58 L 98/52 L Pulse Oximetry 100 96 97 08/08/21 10:00 08/08/21 10:02 08/08/21 10:10 Temperature Pulse Rate 111 H 117 H 111 H Respiratory Rate Blood Pressure 83/44 L 84/45 L 92/51 L Pulse Oximetry 96 97 97 08/08/21 10:30 08/08/21 10:58 Temperature 100.1 F H Pulse Rate 106 H Respiratory Rate Blood Pressure 91/44 L Pulse Oximetry 96 Medical Decision Making Lab Data Result diagrams: 08/08/21 07:35 08/08/21 07:35 Labs: Lab Results 08/08/21 08/08/21 08/08/21 Range/Units 07:35 07:35 08:35 WBC 5.1 (4.5-11.0) X10^3/uL RBC 3.70 L (4.0-5.2) X10^6/uL Hgb 12.7 (12.0-16.0) g/dL Hct 36.5 (36-46) % MCV 98.7 (80-100) fL MCH 34.4 H (26-34) PG MCHC 34.8 (30-36) % RDW 13.0 (11.6-14.8) % Plt Count 106 L (150-400) X10^3/uL Neut % (Auto) 84.4 H (50-75) % Lymph % (Auto) 7.7 L (25-40) % [place] % (Auto) 6.8 (3-14) % Eos % (Auto) 0.8 L (2-4) % Baso % (Auto) 0.3 (0-2) % Neut # (Auto) 4300 (9669-1435) /uL Lymph # (Auto) 400 L (5244-8405) /uL [place] # (Auto) 300 (0-900) /uL Eos # (Auto) 0 (0-450) /uL Baso # (Auto) 0 (0-100) /uL Sodium 137 (137-145) mmol/L Potassium 4.8 (3.4-5.1) mmol/L Chloride 105 (98-107) mmol/L Carbon Dioxide 24 (22-32) mmol/L BUN 19 H (7-17) mg/dL Creatinine 0.93 (0.52-1.04) mg/dL Estimated GFR > 60.0 (>60) mL/min BUN/Creatinine Ratio 20.4 (6-22) Glucose 107 H (70-100) mg/dL Calcium 10.1 (8.4-10.2) mg/dL Total Bilirubin 3.2 H (0.2-1.3) mg/dL AST 55 H (14-36) IU/L ALT 31 (<35) IU/L Alkaline Phosphatase 52 (38-126) U/L Total Protein 7.5 (6.3-8.2) g/dL Albumin 4.2 (3.5-5.0) g/dL Globulin 3.3 (1.7-4.1) g/dL Albumin/Globulin Ratio 1.3 (1.0-2.8) SARS-CoV-2 (PCR) Negative (Negative) MDM Narrative Medical decision making narrative: 35-year-old woman with fevers, myalgias and headache after her COVID booster. History of liver failure. She chronically has hypertension is on midodrine 3 times a day to do with this. On arrival in the emergency room she is given a L of fluid, Toradol to help with her fever a half a mg of Dilaudid to help with her pain. Continues to complain of significant myalgias and headache. Labs are at her baseline or better. COVID test itself is negative. She is eating and drinking without difficulty. I think this is and impressive response to her COVID booster however no evidence of worsening liver failure, sepsis for new developing COVID. As she is able to eat and drink I believe she is safe for home discharge despite her continued complaints of severe myalgias headache. Discharge Plan Departure Patient Disposition: Home Clinical Impression: Adverse effect of COVID-19 vaccine Activity Restrictions/Additional Instructions: Thank you for coming in today I am sorry that your having so many side effects from your COVID vaccine however, that likely also means that your having a brisk immune response which was the whole point of the vaccine in the 1st place. Symptoms typically resolve within 24-36 hours and typically are resolved much mo re quickly than with viral syndromes. If symptoms are persisting tomorrow, please feel free to return to the emergency department I wish you the best Prescriptions: No Action hydrocodone-acetaminophen 5-325 mg tablet 1 tab PO Q6H PRN (Reason: pain) Qty: 10 0RF ondansetron 4 mg tablet,disintegrating 4 mg PO Q8H PRN (Reason: nausea and vomiting) Qty: 10 0RF hydrocodone-acetaminophen 5-325 mg tablet 1 tab PO Q6H PRN (Reason: pain) Qty: 7 0RF diazepam [Valium] 10 mg tablet 10 mg PO TID PRN (Reason: muscle spasm) Qty: 10 0RF tramadol 50 mg tablet 50 mg PO Q6-8H PRN (Reason: pain) Qty: 20 0RF methocarbamol 750 mg tablet 750 mg PO Q6H PRN (Reason: spasm) Qty: 30 0RF
[2021-08-08] MEDS: OXYCODONE IR 5 MG TABLET PO (10:37)
== END 2021-08-08 12:14 | disposition home or self-care (01) ==
PROVIDERS: Emergency Provider Emergency Medicine
DX: R50.83 Postvaccination fever (principal); T50.B95A Adverse effect of other viral vaccines, initial encounter; Z87.891 Personal history of nicotine dependence; Z20.822 Contact with and (suspected) exposure to COVID-19
CPT/HCPCS: 80053; 85025; 87635; 96361; 96374; 96375; 99284; C9803; J1170; J1885; J2765

== ENCOUNTER 2021-12-21 18:26 | Emergency (ER) | payer OTHER, MEDICAID, SELFPAY ==
[2021-12-21] VITALS (12 sets, daily range): BP systolic 132–151; BP diastolic 71–95; PULSE 89–114; RESP 18–20; TEMP 37.2; O2SAT 96–100
--- NOTE | 2021-12-21 18:54 | ED_ITS ---
HPI - Fall General Chief Complaint: Fall Stated Complaint: Passed out hit floor, many bumps on head Time Seen by Provider: 12/21/21 18:51 Source: patient Mode of arrival: Ambulatory History of Present Illness HPI Narrative: 36-year-old female who comes emergency department today for evaluation of injuries that she sustained when she states that approximately 17 30 this afternoon she was standing at a kitchen sink when she states that she passed out. Prior to passing out she did not have any lightheadedness or vision changes or palpitations or shortness of breath. She is unsure exactly what happened. She does not remember falling specifically. She was over at a neighbor's house helping them do some cleaning and cooking dinner when the event happened. She remembers waking up t her neighbor standing over top of her telling her that he was going to call 911. She states that she told him that she was close enough to the hospital that she would just come here on her own. She stated that earlier today she was at a tanning salon where she states that while she was standing she started to have some involuntary shaking movements. She remembers having these movements. She did not fall. She denies injured herself during this time. She has never had this before. She currently she states she is having a headache but no vision changes and no chest pain no shortness of breath no abdominal pain no nausea vomiting. No extremity injuries. No dental injuries. She does have a history of alcohol abuse but has been sober for several months and also has a history of ?liver failure ?for which she is followed by the [facility]. Related Data Previous Rx's Medication Instructions Recorded hydrocodone 5 mg-acetaminophen 325 1 tab PO Q6H PRN pain #10 tabs 05/24/21 mg tablet ondansetron 4 mg disintegrating 4 mg PO Q8H PRN nausea and 05/24/21 tablet vomiting #10 tabs diazepam 10 mg tablet (Valium) 10 mg PO TID PRN muscle spasm #10 06/27/21 tabs hydrocodone 5 mg-acetaminophen 325 1 tab PO Q6H PRN pain #7 tabs 06/27/21 mg tablet methocarbamol 750 mg tablet 750 mg PO Q6H PRN spasm #30 tabs 07/17/21 tramadol 50 mg tablet 50 mg PO Q6-8H PRN pain #20 tabs 07/17/21 Allergies Allergy/AdvReac Type Severity Reaction Status Date / Time Penicillins Allergy Verified 07/15/21 09:10 Review of Systems Review of Systems ROS Unobtainable: All systems reviewed & are unremarkable except as noted in HPI and below Patient History Medical History Abnormal Pap smear of cervix Alcoholic liver failure Anemia Anxiety Chicken pox GERD (gastroesophageal reflux disease) Hypotension Social History Smoking Status: Former smoker Smoking Status: Former smoker Substance Use Type: does not use Exam Initial Vital Signs Initial Vital Signs: Vital Signs Temperature 99.0 F 12/21/21 18:40 Pulse Rate 114 H 12/21/21 18:40 Respiratory Rate 20 12/21/21 18:40 Blood Pressure 142/95 H 12/21/21 18:40 Pulse Oximetry 97 12/21/21 18:40 Oxygen Delivery Method 12/21/21 18:40 Const General: comfortable, well developed, well groomed, No in distress and No ill appearing HENMT Head: contusion (Of right eye), hematoma (Above right eye) and No palpable skull fracture Ears: hearing grossly normal bilaterally and TM's normal bilaterally Nose: external nose normal Face and sinus: normal facial exam, no crepitus, edema (Under right mandible), no lacerations and no maxillary instability Mouth: oral mucosae normal, lip normal and tongue normal Teeth and gingiva: dentition normal Throat: posterior oropharynx normal Eyes Pupils: PERRL EOM: EOM intact bilaterally Neck Other: Ecchymosis located around the anterior portion of the neck it is bilateral but right-sided greater than left. There is no crepitus. No lacerations. Chest Chest: normal inspection of the chest, No crepitus and No tenderness Resp Effort & Inspection: normal respiratory effort Auscultation: clear to auscultation bilaterally Cardio Rate: tachycardic Rhythm: regular rhythm GI Inspection: normal to inspection and non-distended Palpation: soft and No tender Back/Spine/Pelvis Cervical Spine: No cervical spinal tenderness Skin Other: Patient does have a large hematoma in the right frontal region above her right eye. There are no breaks in the skin in this area. She also has fluctuance in the right submandibular region and quite a bit of ecchymosis in the anterior portion of her neck. Neuro General: patient alert, patient awake, patient oriented x3 and moves all extremities Extrem General: normal to inspection, full ROM and capillary refill normal Psych Appearance: grossly normal and well kempt Scores GCS Moseley coma scale eye opening: Spontaneous Lelo coma scale verbal response: Orientated Lelo coma scale motor response: Obey commands Moseley coma scale total score: 15 Nexus Score for C-Spine Focal Neurologic deficit present: No Midline spinal tenderness present: No Altered level of conciousness present: No Intoxication present: No Distracting Injury Present: No Nexus Criteria for C-spine: 0 Course Orders Ordered: ED Orders 12/21/21 18:54 CT soft tissue neck w con Stat 12/21/21 18:56 CT facial bones wo con Stat CT head/brain wo con Stat EKG-12 Lead Stat 12/21/21 19:22 Complete Blood Count AUTO DIFF Stat Comprehensive Metabolic Panel Stat Ethanol (ETOH) Stat Lipase Stat Partial Thromboplastin Time Stat Prothrombin Time INR Stat 12/21/21 21:48 Test Serum,Qual Stat Discontinued Medications Hydromorphone HCl (Hydromorphone 0.5 Mg Inj) 0.5 mg IV NOW ONE Stop: 12/22/21 00:27 Morphine Sulfate (Morphine 4 Mg/Ml Inj) 4 mg IV NOW ONE Stop: 12/21/21 18:55 Last Admin: 12/21/21 19:39 Dose: 4 mg Documented By: BARON Morphine Sulfate (Morphine 4 Mg/Ml Inj) 4 mg IV NOW ONE Stop: 12/21/21 22:17 Last Admin: 12/21/21 23:13 Dose: 4 mg Documented By: BARON Vital Signs Vital signs: Vital Signs - 8 hr 12/21/21 18:40 12/21/21 19:55 12/21/21 19:46 Temperature 99.0 F Pulse Rate 114 H 89 91 H Respiratory Rate 20 18 Blood Pressure 142/95 H 139/88 Pulse Oximetry 97 100 100 Oxygen Delivery Method Room Air Room Air 12/21/21 20:00 12/21/21 20:30 12/21/21 21:00 Temperature Pulse Rate 93 H 92 H 94 H Respiratory Rate 18 Blood Pressure Pulse Oximetry 100 99 99 Oxygen Delivery Method 12/21/21 21:30 12/21/21 21:43 12/21/21 21:43 Temperature Pulse Rate 111 H 114 H Respiratory Rate Blood Pressure 142/89 H Pulse Oximetry 96 98 Oxygen Delivery Method 12/21/21 22:00 12/21/21 22:00 12/21/21 22:30 Temperature Pulse Rate 109 H Respiratory Rate Blood Pressure 151/92 H 135/71 Pulse Oximetry 98 Oxygen Delivery Method 12/21/21 22:30 12/21/21 23:00 12/21/21 23:00 Temperature Pulse Rate 104 H 104 H Respiratory Rate Blood Pressure 132/84 Pulse Oximetry 99 98 Oxygen Delivery Method 12/21/21 23:30 12/21/21 23:30 12/22/21 00:00 Temperature Pulse Rate 95 H Respiratory Rate Blood Pressure 136/83 160/86 H Pulse Oximetry 100 Oxygen Delivery Method 12/22/21 00:00 12/22/21 00:30 12/22/21 00:30 Temperature Pulse Rate 101 H 101 H Respiratory Rate Blood Pressure 129/78 Pulse Oximetry 97 96 Oxygen Delivery Method MDM - Fall Lab Data Attestation: I reviewed the patient's lab results. Result diagrams: 12/21/21 19:22 12/21/21 19:22 Labs: Lab Results 12/21/21 12/21/21 12/21/21 Range/Units 19:22 19:22 19:22 WBC 5.6 (4.5-11.0) X10^3/uL RBC 3.72 L (4.0-5.2) X10^6/uL Hgb 13.3 (12.0-16.0) g/dL Hct 39.1 (36-46) % MCV 104.9 H (80-100) fL MCH 35.7 H (26-34) PG MCHC 34.0 (30-36) % RDW 13.4 (11.6-14.8) % Plt Count 79 L (150-400) X10^3/uL Neut % (Auto) 65.1 (50-75) % Lymph % (Auto) 20.5 L (25-40) % [place] % (Auto) 12.0 (3-14) % Eos % (Auto) 1.6 L (2-4) % Baso % (Auto) 0.8 (0-2) % Neut # (Auto) 3600 (1548-1591) /uL Lymph # (Auto) 1100 (4861-6923) /uL [place] # (Auto) 700 (0-900) /uL Eos # (Auto) 100 (0-450) /uL Baso # (Auto) 0 (0-100) /uL PT 15.3 H (10.1-12.7) SECONDS INR 1.4 H (0.9-1.3) APTT 40 H (26.4-36.2) SECONDS Sodium 135 L (137-145) mmol/L Potassium 4.4 (3.4-5.1) mmol/L Chloride 92 L (98-107) mmol/L Carbon Dioxide 28 (22-32) mmol/L BUN 27 H (7-17) mg/dL Creatinine 1.02 (0.52-1.04) mg/dL Estimated GFR > 60 (>60) mL/min BUN/Creatinine Ratio 26.5 H (6-22) Glucose 94 (70-100) mg/dL Calcium 10.2 (8.4-10.2) mg/dL Total Bilirubin 6.5 H (0.2-1.3) mg/dL AST 242 H (14-36) IU/L ALT 89 H (<35) IU/L Alkaline Phosphatase 135 H (38-126) U/L Total Protein 10.7 H (6.3-8.2) g/dL Albumin 5.7 H (3.5-5.0) g/dL Globulin 5.0 H (1.7-4.1) g/dL Albumin/Globulin Ratio 1.1 (1.0-2.8) Lipase 940 H (23-300) U/L Serum , Qual (Negative) Ethyl Alcohol < 10 ( - 10) mg/dL 12/21/ Range/Units 21:48 WBC (4.5-11.0) X10^3/uL RBC (4.0-5.2) X10^6/uL Hgb (12.0-16.0) g/dL Hct (36-46) % MCV (80-100) fL MCH (26-34) PG MCHC (30-36) % RDW (11.6-14.8) % Plt Count (150-400) X10^3/uL Neut % (Auto) (50-75) % Lymph % (Auto) (25-40) % [place] % (Auto) (3-14) % Eos % (Auto) (2-4) % Baso % (Auto) (0-2) % Neut # (Auto) (9126-8687) /uL Lymph # (Auto) (0552-0433) /uL [place] # (Auto) (0-900) /uL Eos # (Auto) (0-450) /uL Baso # (Auto) (0-100) /uL PT (10.1-12.7) SECONDS INR (0.9-1.3) APTT (26.4-36.2) SECONDS Sodium (137-145) mmol/L Potassium (3.4-5.1) mmol/L Chloride (98-107) mmol/L Carbon Dioxide (22-32) mmol/L BUN (7-17) mg/dL Creatinine (0.52-1.04) mg/dL Estimated GFR (>60) mL/min BUN/Creatinine Ratio (6-22) Glucose (70-100) mg/dL Calcium (8.4-10.2) mg/dL Total Bilirubin (0.2-1.3) mg/dL AST (14-36) IU/L ALT (<35) IU/L Alkaline Phosphatase (38-126) U/L Total Protein (6.3-8.2) g/dL Albumin (3.5-5.0) g/dL Globulin (1.7-4.1) g/dL Albumin/Globulin Ratio (1.0-2.8) Lipase (23-300) U/L Serum , Qual Negative (Negative) Ethyl Alcohol ( - 10) mg/dL Imaging Data CT soft tissue neck: Radiologist's Impression: [place] [address] CT Scan Report Signed Patient: Jael Maldonado MR#: [id number] : 1985 Acct:[id number] Age/Sex: 36 / F Date of Service: 12/21/21 Loc: ED Accession Number: [id number] ?? Procedure: CT soft tissue neck w con Ordering Provider: Miles Estevez D.O. PROCEDURE:? CT SOFT TISSUE NECK W CON ? INDICATIONS:? syncope with anterior neck trauma ? TECHNIQUE:? After the administration of intravenous contrast, 3.0 mm axial sections acquired from the sella to the aortic arch.? Additional oblique axial 3.0 mm sections acquired through the pharynx.? 3 mm thick coronal and sagittal reformats were generated.? For radiation dose reduction, the following was used:? automated exposure control.? ? COMPARISON:? [facility], CT, CT HEAD/BRAIN WO CON, 12/21/2021, 20:08.? [facility], CT, CT FACIAL BONES WO CON, 12/21/2021, 20:08. ? FINDINGS:? Image quality:? Excellent.? ? Lymph nodes:? No enlarged lymph nodes seen throughout the neck.? ? Vessels:? Visualized vasculature appears patent.? ? Neck spaces:? There is a dense right submandibular collection anterior to the submandibular gland measuring approximately 2.6 x 2.2 x 2.2 cm suggestive of a hematoma.? There is an internal focus of high density suggestive of active extravasation.? There is? adjacent fat stranding in the submandibular region extending to the masseter space.? There is also subcutaneous edema within the right and anterior aspects of the neck extending across midline.? The oropharynx, nasopharynx, and pharynx demonstrate no mucosal lesions.? The vocal cords, false vocal cords, pyriform sinuses, epiglottis, vallecula, and tongue base all appear normal.? ? Glands:? There is asymmetric enlargement and edema of the right submandibular gland likely reflecting soft tissue contusion.? The thyroid gland appears within normal limits. ?The parotid glands appear normal.? ? Miscellaneous:? There is right cerebral soft tissue swelling and subcutaneous hematoma partially visualized as seen on the concurrent CT studies.? The globes appear intact.? Lung apices appear clear.? Superficial soft tissues appear normal. ? Bones:? No definite fractures identified.? Visualized sinuses and mastoids appear clear.? IMPRESSION:? ? 1. Right submandibular hematoma collection with suggestion of active extravasation internally. ? 2. Adjacent soft tissue edema in the right submandibular region as well as areas of subcutaneous edema within the right neck soft tissues extending anteriorly across midline suggestive of soft tissue contusions.? Recommend correlation with clinical history. ? 3. No fractures identified. ? 4. Right supraorbital soft tissue swelling partially visualized.? Recommend correlation with concurrent CTs of the head and facial bones. ? Findings discussed with Dr. Estevez on 12/21/21 at 9:38 p.m..? Dictated by: Sebastian Bhardwaj M.D. on 12/21/2021 at 21:37 ? ? Approved by: Sebastian Bhardwaj M.D. on 12/21/2021 at 21:49?? face CT: Radiologist's Impression: [address] [address] [address] Scan Report Signed Patient: Jael Maldonado MR#: [id number] : 1985 Acct:[id number] Age/Sex: 36 / F Date of Service: 12/21/21 Loc: ED Accession Number: [id number] ?? Procedure: CT facial bones wo con Ordering Provider: Miles Estevez D.O. PROCEDURE:? CT FACIAL BONES WO CON ? INDICATIONS:? syncope with facial trauma ? TECHNIQUE:? Noncontrast 2.5 mm thick axial images acquired from the mandible through the frontal sinuses, with coronal and sagittal reformatting.? For radiation dose reduction, the following was used:? automated exposure control, adjustment of mA and/or kV according to patient size.? ? COMPARISON:? [facility], CT, CT HEAD/BRAIN WO CON, 12/21/2021, 20:08. ? FINDINGS:? Image quality:? Excellent.? ? Bones and teeth:? Orbital diaz are intact.? Sinus diaz show no fracture or deformity.? Nasal bones and septum are intact.? Visualized portions of the mandible demonstrate no fractures or subluxation.? Zygomatic arches are intact.? Pterygoid plates are intact.? Visualized portions of the skull base and auditory canals are intact.? ? Sinuses:? There is a small air-fluid level within the maxillary sinuses with mild mucosal thickening.? Mild mucosal thickening also demonstrated within the ethmoid sinuses.? Mastoid air cells are aerated.? ? Soft tissues:? There is a right supraorbital forehead soft tissue swelling.? The globes appear intact.? No retrobulbar fluid collections or fat stranding. ? Vascular:? Visualized vascular structures appear normal in the absence of co ntrast.? Bony vascular foramina and canals are intact.? ? IMPRESSION:? ? 1. No facial bone fractures identified. ? 2. Mild mucosal thickening in the maxillary sinuses with small air-fluid levels likely reflecting sinus mucosal disease and mild acute sinusitis.? ? Dictated by: Sebastian Bhardwaj M.D. on 12/21/2021 at 20:52 ? ? Approved by: Sebastian Bhardwaj M.D. on 12/21/2021 at 20:54? CT scan - head: Radiologist's Impression: [place] [address] CT Scan Report Signed Patient: Jael Maldonado MR#: [id number] : 1985 Acct:[id number] Age/Sex: 36 / F Date of Service: 12/21/21 Loc: ED Accession Number: [id number] ?? Procedure: CT head/brain wo con Ordering Provider: Miles Estevez D.O. PROCEDURE:? CT HEAD/BRAIN WO CON ? INDICATIONS:? syncope with facial trauma ? TECHNIQUE:? Noncontrast 4.5 mm thick angled axial sections acquired from the foramen magnum to the vertex, with coronal and sagittal reformats.? For radiation dose reduction, the following was used:? automated exposure control, adjustment of mA and/or kV according to patient size.? ? COMPARISON:? [facility], CT, CT FACIAL BONES WO CON, 12/21/2021, 20:08.? [facility], CT, CT HEAD/BRAIN WO CON, 07/17/2021, 16:13. ? FINDINGS:? Image quality:? Excellent.? ? CSF spaces:? Basal cisterns are patent.? No extra-axial fluid collections.? Ventricles are normal in size and shape.? ? Brain:? No intracranial hemorrhage, mass, or mass effect.? Charles-white matter interface appears preserved.? ? Skull and face:? There is right supraorbital frontal forehead soft tissue swelling.? Calvarium and visualized facial bones are intact, without suspicious lesions.? The globes appear intact.? ? Sinuses:? Visualized sinuses and mastoids are clear.? ? IMPRESSION:? ? 1. No acute intracranial abnormality. ? 2. Right supraorbital forehead soft tissue swelling without associated fractures identified.? ? ? Dictated by: Sebastian Bhardwaj M.D. on 12/21/2021 at 20:31 ? ? Approved by: Sebastian Bhardwaj M.D. on 12/21/2021 at 20:34?? [facility] Narrative Medical decision making narrative: The large hematoma above her right eye however CT scan shows no signs of fracture. Her extraocular muscles are intact. Cervical spine is cleared by nexus criteria. She does have swelling under the right mandibular region which does correspond to the hematoma that is seen on the CT scan. There are no fractures associated with this. There was some concern about continued bleeding given the contrast location. A pressure dressing was placed over the area. The event happened approximately 5 hours ago. She does feel like the swelling is getting worse but she has no respiratory distress. Is tolerating her secretions. Normal voice. She does have extensive ecchymosis in the anterior portion of her neck. She states that the injuries that she came with today are not the result of any assault or strangulation. She has no other injuries found on the exam nor reported. I did discuss the case with Dr. Iglesias on-call with ENT he states that the patient does need observation however should be at a place that has trauma capability. I then discussed the case with Dr. Becrera on- call for Trauma surgery at [facility] who accepts the patient in transf er. I also discussed the case with the ED physician as well. Patient will be transported for further evaluation and treatment. Patient is stable for transport Critical Care Time Critical Care Time Critical Care Time: Yes Total Critical Care Time: 35 Attestation: The high probability of a clinically significant, sudden or life threatening deterioration of the respiratory system(s) required my full and direct attention, intervention and personal management. The aggregate critical care time was 35 minutes. This time is in addition to time spent performing reported procedures but includes the following: [x] Data Review and interpretation [x] Patient assessment and monitoring of vital signs [x] Documentation [x] Medication orders and management Discharge Plan Departure [facility] Clinical Impression: Hematoma, Forehead contusion, Ecchymosis of neck, Syncope Prescriptions: No Action hydrocodone-acetaminophen 5-325 mg tablet 1 tab PO Q6H PRN (Reason: pain) Qty: 10 0RF ondansetron 4 mg tablet,disintegrating 4 mg PO Q8H PRN (Reason: nausea and vomiting) Qty: 10 0RF hydrocodone-acetaminophen 5-325 mg tablet 1 tab PO Q6H PRN (Reason: pain) Qty: 7 0RF diazepam [Valium] 10 mg tablet 10 mg PO TID PRN (Reason: muscle spasm) Qty: 10 0RF tramadol 50 mg tablet 50 mg PO Q6-8H PRN (Reason: pain) Qty: 20 0RF methocarbamol 750 mg tablet 750 mg PO Q6H PRN (Reason: spasm) Qty: 30 0RF
--- NOTE | 2021-12-21 18:54 | DI.CT.S_ITS ---
PROCEDURE: CT SOFT TISSUE NECK W CON INDICATIONS: syncope with anterior neck trauma TECHNIQUE: After the administration of intravenous contrast, 3.0 mm axial sections acquired from the sella to the aortic arch. Additional oblique axial 3.0 mm sections acquired through the pharynx. 3 mm thick coronal and sagittal reformats were generated. For radiation dose reduction, the following was used: automated exposure control. COMPARISON: [facility], CT, CT HEAD/BRAIN WO CON, 12/21/2021, 20:08. [facility], CT, CT FACIAL BONES WO CON, 12/21/2021, 20:08. FINDINGS: Image quality: Excellent. Lymph nodes: No enlarged lymph nodes seen throughout the neck. Vessels: Visualized vasculature appears patent. Neck spaces: There is a dense right submandibular collection anterior to the submandibular gland measuring approximately 2.6 x 2.2 x 2.2 cm suggestive of a hematoma. There is an internal focus of high density suggestive of active extravasation. There is adjacent fat stranding in the submandibular region extending to the masseter space. There is also subcutaneous edema within the right and anterior aspects of the neck extending across midline. The oropharynx, nasopharynx, and pharynx demonstrate no mucosal lesions. The vocal cords, false vocal cords, pyriform sinuses, epiglottis, vallecula, and tongue base all appear normal. Glands: There is asymmetric enlargement and edema of the right submandibular gland likely reflecting soft tissue contusion. The thyroid gland appears within normal limits. The parotid glands appear normal. Miscellaneous: There is right cerebral soft tissue swelling and subcutaneous hematoma partially visualized as seen on the concurrent CT studies. The globes appear intact. Lung apices appear clear. Superficial soft tissues appear normal. Bones: No definite fractures identified. Visualized sinuses and mastoids appear clear. IMPRESSION: 1. Right submandibular hematoma collection with suggestion of active extravasation internally. 2. Adjacent soft tissue edema in the right submandibular region as well as areas of subcutaneous edema within the right neck soft tissues extending anteriorly across midline suggestive of soft tissue contusions. Recommend correlation with clinical history. 3. No fractures identified. 4. Right supraorbital soft tissue swelling partially visualized. Recommend correlation with concurrent CTs of the head and facial bones. Findings discussed with Dr. Estevez on 12/21/21 at 9:38 p.m.. Dictated by: Sebastian Bhardwaj M.D. on 12/21/2021 at 21:37 Approved by: Sebastian Bhardwaj M.D. on 12/21/2021 at 21:49
--- NOTE | 2021-12-21 18:56 | DI.CT.S_ITS ---
PROCEDURE: CT FACIAL BONES WO CON INDICATIONS: syncope with facial trauma TECHNIQUE: Noncontrast 2.5 mm thick axial images acquired from the mandible through the frontal sinuses, with coronal and sagittal reformatting. For radiation dose reduction, the following was used: automated exposure control, adjustment of mA and/or kV according to patient size. COMPARISON: [facility], CT, CT HEAD/BRAIN WO CON, 12/21/2021, 20:08. FINDINGS: Image quality: Excellent. Bones and teeth: Orbital diaz are intact. Sinus diaz show no fracture or deformity. Nasal bones and septum are intact. Visualized portions of the mandible demonstrate no fractures or subluxation. Zygomatic arches are intact. Pterygoid plates are intact. Visualized portions of the skull base and auditory canals are intact. Sinuses: There is a small air-fluid level within the maxillary sinuses with mild mucosal thickening. Mild mucosal thickening also demonstrated within the ethmoid sinuses. Mastoid air cells are aerated. Soft tissues: There is a right supraorbital forehead soft tissue swelling. The globes appear intact. No retrobulbar fluid collections or fat stranding. Vascular: Visualized vascular structures appear normal in the absence of contrast. Bony vascular foramina and canals are intact. IMPRESSION: 1. No facial bone fractures identified. 2. Mild mucosal thickening in the maxillary sinuses with small air-fluid levels likely reflecting sinus mucosal disease and mild acute sinusitis. Dictated by: Sebastian Bhardwaj M.D. on 12/21/2021 at 20:52 Approved by: Sebastian Bhardwaj M.D. on 12/21/2021 at 20:54
--- NOTE | 2021-12-21 18:56 | DI.CT.S_ITS ---
PROCEDURE: CT HEAD/BRAIN WO CON INDICATIONS: syncope with facial trauma TECHNIQUE: Noncontrast 4.5 mm thick angled axial sections acquired from the foramen magnum to the vertex, with coronal and sagittal reformats. For radiation dose reduction, the following was used: automated exposure control, adjustment of mA and/or kV according to patient size. COMPARISON: [facility], CT, CT FACIAL BONES WO CON, 12/21/2021, 20:08. [facility], CT, CT HEAD/BRAIN WO CON, 07/17/2021, 16:13. FINDINGS: Image quality: Excellent. CSF spaces: Basal cisterns are patent. No extra-axial fluid collections. Ventricles are normal in size and shape. Brain: No intracranial hemorrhage, mass, or mass effect. Charles-white matter interface appears preserved. Skull and face: There is right supraorbital frontal forehead soft tissue swelling. Calvarium and visualized facial bones are intact, without suspicious lesions. The globes appear intact. Sinuses: Visualized sinuses and mastoids are clear. IMPRESSION: 1. No acute intracranial abnormality. 2. Right supraorbital forehead soft tissue swelling without associated fractures identified. Dictated by: Sebastian Bhardwaj M.D. on 12/21/2021 at 20:31 Approved by: Sebastian Bhardwaj M.D. on 12/21/2021 at 20:34
--- NOTE | 2021-12-21 19:20 | PC.NURSE ---
pt has bruising all over her body. face and neck is quite swollen on the right. bruising /abrasions on chest. pt is talking in full sentences. denies difficulty breathing.
[2021-12-21 19:30] LABS: Add Manual Diff / Slide Review NO; Basophils Absolute Auto 0 /uL (0-100); Basophils Percent Auto 0.8 % (0-2); Eosinophils Absolute Auto 100 /uL (0-450); Eosinophils Percent Auto 1.6 % (2-4); Hematocrit 39.1 % (36-46); Hemoglobin 13.3 g/dL (12.0-16.0); Lymphocytes Absolute Auto 1100 /uL (1100-4500); Lymphocytes Percent Auto 20.5 % (25-40); Mean Corpuscular Hemoglobin 35.7 PG (26-34); Mean Corpuscular Volume 104.9 fL (80-100); Monocytes Absolute Auto 700 /uL (0-900); Neutrophils Absolute Auto 3600 /uL (1500-7000); Neutrophils Percent Auto 65.1 % (50-75); Platelet Count 79 X10^3/uL (150-400); Red Blood Cell Count 3.72 X10^6/uL (4.0-5.2); Red Cell Distribution Width 13.4 % (11.6-14.8); White Blood Cell Count 5.6 X10^3/uL (4.5-11.0)
[2021-12-21] MEDS: MORPHINE 4 MG/ML INJ IV ×2 (19:39→23:13)
[2021-12-21 19:53] LABS: INR 1.4 (0.9-1.3); Prothrombin Time 15.3 SECONDS (10.1-12.7)
[2021-12-21 19:55] LABS: PTT Partial Thromboplastin Tim 40 SECONDS (26.4-36.2)
[2021-12-21 19:57] LABS: Alanine Aminotransferase 89 IU/L (<35); Albumin 5.7 g/dL (3.5-5.0); Albumin Globulin Ratio 1.1 (1.0-2.8); Alkaline Phosphatase 135 U/L (38-126); Aspartate Aminotransferase 242 IU/L (14-36); BUN Creatinine Ratio 26.5 (6-22); Bilirubin Total 6.5 mg/dL (0.2-1.3); Blood Urea Nitrogen 27 mg/dL (7-17); Calcium 10.2 mg/dL (8.4-10.2); Carbon Dioxide 28 mmol/L (22-32); Chloride 92 mmol/L (98-107); Estimated Glomerular Filt Rate > 60 mL/min (>60); Ethanol (ETOH) < 10 mg/dL; Glucose 94 mg/dL (70-100); Lipase 940 U/L (23-300); Potassium 4.4 mmol/L (3.4-5.1); Sodium 135 mmol/L (137-145); Total Protein 10.7 g/dL (6.3-8.2)
[2021-12-21 20:01] LABS: HEMOLYSIS 108 (0-50)
--- NOTE | 2021-12-21 21:40 | PC.NURSE ---
pt ambulatory to bathroom, gait somewhat unsteady
[2021-12-21 22:11] LABS: Pregnancy Test Serum,Qual Negative (Negative)
--- NOTE | 2021-12-21 23:17 | PC.NURSE ---
pressure dressing applied per instructions to pt's right submandibular area
[2021-12-22] VITALS: BP 160/86; PULSE 101; O2SAT 97
[2021-12-22 00:30] VITALS: BP 129/78; PULSE 101; O2SAT 96
[2021-12-22 00:50] VITALS: BP 131/73; PULSE 109; O2SAT 97
[2021-12-22] MEDS: HYDROMORPHONE 0.5 MG INJ IV (00:50)
[2021-12-22 01:00] VITALS: BP 113/67; PULSE 99; O2SAT 94
== END 2021-12-22 01:19 | disposition short-term general hospital (02) ==
PROVIDERS: Emergency Provider Emergency Medicine
DX: S00.83XA Contusion of other part of head, initial encounter (principal); S10.93XA Contusion of unspecified part of neck, initial encounter; R55 Syncope and collapse; R60.9 Edema, unspecified
CPT/HCPCS: 36415; 70450; 70486; 70491; 80053; 80320; 83690; 84703; 85025; 85610; 85730; 93005; 93010; 96374; 96375; 96376; 99284; 99285; J1170; J2270; Q9967

== ENCOUNTER 2021-12-26 15:08 | Emergency (ER) | payer OTHER, MEDICAID, SELFPAY ==
[2021-12-26 15:21] VITALS: BP 136/73; PULSE 88; RESP 18; TEMP 37.2; O2SAT 99; BMI 22.8
--- NOTE | 2021-12-26 16:15 | ED_ITS ---
HPI - Recheck/Abnormal Lab/Rx <Dustin Vizcarra PA-C - Last Filed: 12/26/21 19:14> General Chief Complaint: Recheck/Abnormal Lab/Rx Stated Complaint: pain in face,mouth,nose, fell on Tuesday night Time Seen by Provider: 12/26/21 15:44 Source: patient Mode of arrival: Ambulatory History of Present Illness HPI narrative: Patient is a 36-year-old female who presents to the emergency department for evaluation neck pain and ecchymosis over the neck. Patient was seen in the emergency department on 12/21/2021 for evaluation of injuries sustained due to a syncopal episode. A CT the head and a CT the neck was obtained in the emergency department which did not show signs of acute fracture, however patient was transferred to [place] out of concern for ecchymosis over the right side of the neck that was gradually increasing in size. ENT consult was obtained at that time and it was recommended that the patient be admitted for observation at a facility with trauma capability. Patient was admitted for observation for 2 nights and was discharged home with medications for pain management. Patient states she does have an appointment with her primary care provider this upcoming Tuesday, however she states that she ran out of her pain medication and is still experiencing significant discomfort. Patient denies any fever, chills, chest pain, cough, shortness of breath, vomiting, diarrhea, constipation, abdominal pain, dysuria, hematuria, syncope, changes in vision or hearing, numbness and tingling, or any other concerning symptoms. No further concerns were voiced at this time. Related Data Previous Rx's Medication Instructions Recorded hydrocodone 5 mg-acetaminophen 325 1 tab PO Q6H PRN pain #10 tabs 05/24/21 mg tablet ondansetron 4 mg disintegrating 4 mg PO Q8H PRN nausea and 05/24/21 tablet vomiting #10 tabs diazepam 10 mg tablet (Valium) 10 mg PO TID PRN muscle spasm #10 06/27/21 tabs hydrocodone 5 mg-acetaminophen 325 1 tab PO Q6H PRN pain #7 tabs 06/27/21 mg tablet methocarbamol 750 mg tablet 750 mg PO Q6H PRN spasm #30 tabs 07/17/21 tramadol 50 mg tablet 50 mg PO Q6-8H PRN pain #20 tabs 07/17/21 metoclopramide HCl 10 mg tablet 10 mg PO Q6H PRN nausea and 12/26/21 (Reglan) vomiting #15 tabs oxycodone 10 mg tablet 10 mg PO Q6H PRN pain #15 tabs 12/26/21 oxycodone 5 mg tablet 5 mg PO Q6H PRN pain #15 tabs 12/26/21 Allergies Allergy/AdvReac Type Severity Reaction Status Date / Time Penicillins Allergy Verified 12/26/21 15:21 Review of Systems <Dustin Vizcarra PA-C - Last Filed: 12/26/21 19:14> Constitutional Constitutional: Denies chills, Denies fatigue, Denies fever(s), Denies frequent falls, Denies lethargy and Denies weakness ENT Ears, Nose, Mouth, and Throat: Reports facial pain, Reports neck pain, Denies sinus pressure, Denies sore throat, Denies throat swelling and Denies tongue swelling Cardiovascular Cardiovascular: Denies chest pain, Denies irregular heart rhythm, Denies lightheadedness, Denies palpitations, Denies dyspnea, Denies dyspnea on exertion and Denies orthopnea Respiratory Respiratory: Denies dyspnea and Denies dyspnea on exertion Gastrointestinal Gastrointestinal: Denies abdominal pain, Denies change in bowel habits, Denies diarrhea, Reports nausea and Denies vomiting Genitourinary Genitourinary: Denies hematuria, Denies flank pain, Denies urinary incontinence and Denies urinary urgency Musculoskeletal Musculoskeletal: Denies back pain, Denies muscle weakness, Reports neck pain, Denies numbness and Denies tingling Integumentary/Breasts Skin/Breast: Denies pruritus, Denies erythema, Denies rash and Denies wounds Neurologic Neurologic: Denies frequent falls, Denies numbness, Denies tingling and Denies weakness Endocrine Endocrine: Denies fatigue and Denies palpitations Allergic/Immunologic Allergic/Immunologic: Denies throat swelling and Denies tongue swelling Patient History <Dustin Vizcarra PA-C - Last Filed: 12/26/21 19:14> Medical History Abnormal Pap smear of cervix Alcoholic liver failure Anemia Anxiety Chicken pox GERD (gastroesophageal reflux disease) Hypotension Social History Smoking Status: Former smoker Smoking Status: Former smoker Substance Use Type: does not use Exam <Dustin Vizcarra PA-C - Last Filed: 12/26/21 19:14> Narrative Exam Narrative: GENERAL: 36 year old patient appears stated age. Well-developed patient, in no acute distress. HEAD: Extensive ecchymosis noted, area of ecchymosis noted along the right lateral aspect of the forehead, under the eyes bilaterally, and along the right side of the face extending down into the right side of the neck. EYES: Pupils equal round and reactive. Extraocular motions intact. No scleral icterus. No injection or drainage. ENT: Nose without bleeding, purulent drainage. Throat without erythema, tonsillar hypertrophy or exudate. Airway patent. NECK: Trachea midline. Generalized tenderness throughout neck with ecchymosis noted bilaterally extending distally into the medial chest wall. CARDIOVASCULAR: Regular rate and rhythm without murmurs, gallops, or rubs. RESPIRATORY: Clear to auscultation. Breath sounds equal bilaterally. No wheezes, rales, or rhonchi. GASTROINTESTINAL: Abdomen soft, non-tender, nondistended. EXTREMITIES: No edema or joint tenderness. BACK: Nontender without deformity or crepitance. No flank tenderness. NEURO: AOx3. SKIN: No rash or erythema of visible areas Initial Vital Signs Initial Vital Signs: Vital Signs Temperature 98.9 F 12/26/21 15:21 Pulse Rate 88 12/26/21 15:21 Respiratory Rate 18 12/26/21 15:21 Blood Pressure 136/73 12/26/21 15:21 Pulse Oximetry 99 12/26/21 15:21 Oxygen Delivery Method 12/26/21 15:21 <Ethel Myers DO - Last Filed: 12/27/21 12:03> Initial Vital Signs Initial Vital Signs: Vital Signs Temperature 98.9 F 12/26/21 15:21 Pulse Rate 88 12/26/21 15:21 Respiratory Rate 18 12/26/21 15:21 Blood Pressure 136/73 12/26/21 15:21 Pulse Oximetry 99 12/26/21 15:21 Oxygen Delivery Method 12/26/21 15:21 Course <Dustin Vizcarra PA-C - Last Filed: 12/26/21 19:14> Course Course Narrative: Imaging obtained in the emergency department on 12/21/2021 reviewed. Confirmed no acute abnormality identified such as fracture. Vital Signs Vital signs: Vital Signs - 8 hr 12/26/21 15:21 Temperature 98.9 F Pulse Rate 88 Respiratory Rate 18 Blood Pressure 136/73 Pulse Oximetry 99 Oxygen Delivery Method Room Air <Ethel Jayleen Myers DO - Last Filed: 12/27/21 12:03> Vital Signs Vital signs: Vital Signs - 8 hr 12/26/21 15:21 Temperature 98.9 F Pulse Rate 88 Respiratory Rate 18 Blood Pressure 136/73 Pulse Oximetry 99 Oxygen Delivery Method Room Air MDM - Recheck/Abnormal Lab/Rx <Dustin Vizcarra PA-C - Last Filed: 12/26/21 19:14> MDM Narrative Medical decision making narrative: Differential diagnosis to consider but not limited to medication refill versus fracture versus concussion. Patient presents requesting medication refill, informed patient I would be providing her with prescription for pain medication and medication for nausea. I informed the patient that it is important to follow-up with primary care for further management of the symptoms. Patient expresses understanding and agrees to plan. Strict return precautions were discussed with the patient prior to discharge. Discharge Plan Departure Patient Disposition: Home Clinical Impression: Neck pain, Ecchymosis of neck Instructions: DI for Neck Pain Activity Restrictions/Additional Instructions: *You have been diagnosed with neck pain, ecchymosis neck *What to do: *Please continue to take your regular medications as directed. [X] New medication prescriptions sent to your pharmacy: Oxycodone, Reglan - [facility] [ ] New medication written as a paper prescription [ ] No new medications given You were evaluated in the emergency department today for neck pain. I have sent prescriptions to preferred pharmacy to help alleviate discomfort and nausea. Please follow-up with your primary care provider for further management of these symptoms. Please do not hesitate to return to the emergency department if you experience worsening pain, fever, loss of sensation in the extremities, loss of consciousness, or any other concerning symptoms. *Please follow up with your primary care provider in 2-3 days, call for an appointment. Let them know you were seen in the Emergency Department and that we ask that you be seen in follow up. We will electronically transmit a record of today's note if your PCP is in our system *If you do not have a primary care provider please contact the [facility] Resource line at [phone]. They will ask some questions about your medical history and help get you set up with a doctor in the community. *Return to Emergency Department if you should have any new, worsening or concerning symptoms, such as fever greater than 101 F, shaking chills, worsening pain, persistent vomiting or other bothersome symptoms. Prescriptions: New oxycodone 10 mg tablet 10 mg PO Q6H PRN (Reason: pain) Qty: 15 0RF metoclopramide HCl [Reglan] 10 mg tablet 10 mg PO Q6H PRN (Reason: nausea and vomiting) Qty: 15 0RF oxycodone 5 mg tablet 5 mg PO Q6H PRN (Reason: pain) Qty: 15 0RF No Action hydrocodone-acetaminophen 5-325 mg tablet 1 tab PO Q6H PRN (Reason: pain) Qty: 10 0RF ondansetron 4 mg tablet,disintegrating 4 mg PO Q8H PRN (Reason: nausea and vomiting) Qty: 10 0RF hydrocodone-acetaminophen 5-325 mg tablet 1 tab PO Q6H PRN (Reason: pain) Qty: 7 0RF diazepam [Valium] 10 mg tablet 10 mg PO TID PRN (Reason: muscle spasm) Qty: 10 0RF tramadol 50 mg tablet 50 mg PO Q6-8H PRN (Reason: pain) Qty: 20 0RF methocarbamol 750 mg tablet 750 mg PO Q6H PRN (Reason: spasm) Qty: 30 0RF Visit Report Forms: Patient Portal/API <Ethel Myers DO - Last Filed: 12/27/21 12:03> [facility] Attending Berta Attestation: I was immediately available in the department for consultation. Documentation has been reviewed.
== END 2021-12-26 16:35 | disposition home or self-care (01) ==
PROVIDERS: Emergency Provider Physician Assistant
DX: M54.2 Cervicalgia (principal)
CPT/HCPCS: 99281

== ENCOUNTER 2021-12-27 16:19 | Emergency (ER) | payer OTHER, MEDICAID, SELFPAY ==
[2021-12-27 16:29] VITALS: BP 120/79; PULSE 88; RESP 19; TEMP 36.8; O2SAT 100; BMI 22.8
== END 2021-12-27 18:34 | disposition left against medical advice (07) ==
PROVIDERS: Emergency Provider Emergency Medicine
CPT/HCPCS: 99281

== ENCOUNTER 2021-12-27 19:57 | Emergency (ER) | payer OTHER, MEDICAID, SELFPAY ==
[2021-12-27 20:10] VITALS: BP 145/79; PULSE 84; RESP 16; TEMP 36.9; O2SAT 100; BMI 22.8
--- NOTE | 2021-12-27 20:26 | ED.WOUNDLAC ---
HPI - Wound/Laceration General Chief Complaint: Recheck/Abnormal Lab/Rx Stated Complaint: extreme pain on right side of face and body Time Seen by Provider: 12/27/21 20:12 History of Present Illness HPI narrative: Patient is a 36-year-old female with who is a recovering alcoholic states that she has been sober for last 9 months. She had a syncopal episode 1 week ago thought to be due from over-diuresis with Lasix and spironolactone. [place] but has significant bruising all down her neck. There is active bleeding without airway compromise. She was seen evaluated here in the transferred to [place] where she stayed overnight and was released. They decreased her diuretics. She was discharged home on Oxy code own she was seen evaluated yesterday for refill of oxycodone. She states that she is continuing to have pain around right eye somewhat so that she cannot sleep. She is requesting Dilaudid. She has a little bit of blurry vision of the right eye. She has subconjunctival hematoma in the right eye which she says is new today. She says her other body aches and pains seem to be getting better. However her eye still hurts. Related Data Previous Rx's Medication Instructions Recorded hydrocodone 5 mg-acetaminophen 325 1 tab PO Q6H PRN pain #10 tabs 05/24/21 mg tablet ondansetron 4 mg disintegrating 4 mg PO Q8H PRN nausea and 05/24/21 tablet vomiting #10 tabs diazepam 10 mg tablet (Valium) 10 mg PO TID PRN muscle spasm #10 06/27/21 tabs hydrocodone 5 mg-acetaminophen 325 1 tab PO Q6H PRN pain #7 tabs 06/27/21 mg tablet methocarbamol 750 mg tablet 750 mg PO Q6H PRN spasm #30 tabs 07/17/21 tramadol 50 mg tablet 50 mg PO Q6-8H PRN pain #20 tabs 07/17/21 metoclopramide HCl 10 mg tablet 10 mg PO Q6H PRN nausea and 12/26/21 (Reglan) vomiting #15 tabs oxycodone 10 mg tablet 10 mg PO Q6H PRN pain #15 tabs 12/26/21 oxycodone 5 mg tablet 5 mg PO Q6H PRN pain #15 tabs 12/26/21 Allergies Allergy/AdvReac Type Severity Reaction Status Date / Time Penicillins Allergy Verified 12/26/21 15:21 Review of Systems Review of Systems Narrative: GENERAL: Denies chills, fatigue, malaise, fever, sweats, travel HEENT: see HPI RESPIRATORY: Denies dyspnea, cough, wheezing, hemoptysis, sputum. CARDIOVASCULAR: Denies chest pain, palpitations, orthopnea, edema GASTROINTESTINAL: Denies nausea, vomiting, abdominal pain, diarrhea, constipation, melena. : Denies dysuria, frequency, incontinence, hematuria, urinary retention, flank pain. MUSCULOSKELETAL: Denies weakness, joint pain, or bony pain SKIN: No rash, no erythema, no pruritus NEUROLOGIC: Denies weakness, dizziness, headache, numbness, change in speech, confusion PSYCHIATRIC: No concerning psychosocial issues. 12 point review of systems is negative except for those stated above and HPI Patient History Medical History Abnormal Pap smear of cervix Alcoholic liver failure Anemia Anxiety Chicken pox GERD (gastroesophageal reflux disease) Hypotension Social History Smoking Status: Former smoker Smoking Status: Former smoker Substance Use Type: does not use Exam Initial Vital Signs Initial Vital Signs: Vital Signs Temperature 98.4 F 12/27/21 20:10 Pulse Rate 84 12/27/21 20:10 Respiratory Rate 16 12/27/21 20:10 Blood Pressure 145/79 H 12/27/21 20:10 Pulse Oximetry 100 12/27/21 20:10 Oxygen Delivery Method 12/27/21 20:10 GENERAL: Alert 36-year-old female and in no acute distress. HEENT: Head atraumatic,EOMI, pupils reactive, no ptosis, right eye has mild subconjunctival hematoma, face symmetric, moist mucous membranes Right eye was treated with proparacaine, stained with fluorescein. No dye uptake. No foreign body. Pressure in right eye 14mmHg, pressure left eye 12mmHg CARDIOVASCULAR: Regular rate and rhythm without murmurs, rubs or gallops. RESPIRATORY: Breath sounds equal bilaterally, no wheezes rales or rhonchi. ABDOMEN: Soft, nontender. Normoactive bowel sounds all 4 quadrants. No guarding or rebound. EXTREMITIES: Normal range of motion, no clubbing or edema. Neurovascularly intact NEUROLOGICAL: Alert and oriented x4.Normal gait and speech. SKIN: Significant facial bruising and neck down to her chest. No erythema. Course Orders Ordered: ED Orders 12/27/21 20:35 CBC Auto Diff [Complete Blood Count AUTO DIFF] Stat CMP [Comprehensive Metabolic Panel] Stat PT [Prothrombin Time INR] Stat PTT [Partial Thromboplastin Time] Stat 12/27/21 20:38 CT facial bones w con Stat Discontinued Medications Fluorescein Sodium (Fluorescein 1 Mg Strip) 1 mg EYE-BOTH NOW ONE Stop: 12/27/21 21:52 Last Admin: 12/27/21 22:12 Dose: 1 mg Documented By: CALIN Hydromorphone HCl (Hydromorphone 1 Mg Inj) 1 mg IV NOW ONE Stop: 12/27/21 21:21 Last Admin: 12/27/21 21:24 Dose: 1 mg Documented By: CALIN Proparacaine HCl (Proparacaine 0.5% Ophth Ileana) 1 drops EYE-RIGHT NOW ONE Stop: 12/27/21 20:27 Last Admin: 12/27/21 21:24 Dose: 1 drop Documented By: CALIN Vital Signs Vital signs: Vital Signs - 8 hr 12/27/21 20:10 12/27/21 22:12 12/27/21 22:13 Temperature 98.4 F Pulse Rate 84 84 Respiratory Rate 16 Blood Pressure 145/79 H 105/67 Pulse Oximetry 100 97 Oxygen Delivery Method Room Air Room Air MDM - Wound/Laceration Lab Data Result diagrams: 12/27/21 20:35 12/27/21 20:35 Labs: Lab Results 12/27/21 12/27/21 12/27/21 Range/Units 20:35 20:35 20:35 WBC 4.9 (4.5-11.0) X10^3/uL RBC 3.42 L (4.0-5.2) X10^6/uL Hgb 12.3 (12.0-16.0) g/dL Hct 35.6 L (36-46) % MCV 104.2 H (80-100) fL MCH 36.0 H (26-34) PG MCHC 34.6 (30-36) % RDW 12.9 (11.6-14.8) % Plt Count 166 (150-400) X10^3/uL Neut % (Auto) 37.0 L (50-75) % Lymph % (Auto) 46.2 H (25-40) % [place] % (Auto) 13.6 (3-14) % Eos % (Auto) 2.9 (2-4) % Baso % (Auto) 0.3 (0-2) % Neut # (Auto) 1800 (4742-2148) /uL Lymph # (Auto) 2300 (2125-1154) /uL [place] # (Auto) 700 (0-900) /uL Eos # (Auto) 100 (0-450) /uL Baso # (Auto) 0 (0-100) /uL PT 13.7 H (10.1-12.7) SECONDS INR 1.2 (0.9-1.3) APTT 41 H (26.4-36.2) SECONDS Sodium 137 (137-145) mmol/L Potassium 3.7 (3.4-5.1) mmol/L Chloride 99 (98-107) mmol/L Carbon Dioxide 26 (22-32) mmol/L BUN 14 (7-17) mg/dL Creatinine 0.93 (0.52-1.04) mg/dL Estimated GFR > 60 (>60) mL/min BUN/Creatinine Ratio 15.1 (6-22) Glucose 102 H (70-100) mg/dL Calcium 9.4 (8.4-10.2) mg/dL Total Bilirubin 3.2 H (0.2-1.3) mg/dL AST 99 H (14-36) IU/L ALT 53 H (<35) IU/L Alkaline Phosphatase 100 (38-126) U/L Total Protein 8.7 H (6.3-8.2) g/dL Albumin 4.8 (3.5-5.0) g/dL Globulin 3.9 (1.7-4.1) g/dL Albumin/Globulin Ratio 1.2 (1.0-2.8) Imaging Data CT face: Radiologist's Impression: CT Scan Report Signed Patient: Jael Maldonado MR#: [id number] : 1985 Acct:[id number] Age/Sex: 36 / F Date of Service: 12/27/21 Loc: ED Accession Number: [id number] ?? Procedure: CT facial bones w con Ordering Provider: Sabiha Jarquin D.O. PROCEDURE:? CT FACIAL BONES W CON ? INDICATIONS:? worsening right eye pain and swellng after fall etoh ? TECHNIQUE:? After the administration of intravenous contrast, 2.5 mm axial sections acquired from the mid-neck to the frontal sinuses, with coronal and sagittal reformats.? For radiation dose reduction, the following was used:? automated exposure control, adjustment of mA and/or kV according to patient size.? ? COMPARISON:? [facility], CT, CT SOFT TISSUE NECK W CON, 12/21/2021, 20:08.? [facility], CT, CT HEAD/BRAIN WO CON, 12/21/2021, 20:08. ? FINDINGS:? Image quality:? Excellent.? ? Soft tissues:? There is right periorbital soft tissue swelling redemonstrated.? There is also a right supraorbital region of soft tissue swelling with a subcutaneous hematoma which has decreased in size compared to the prior study.? The globes appear intact.? No retro bulbar mass or fluid collections.? There is interval decrease in size a right submandibular hematoma now measuring up to 2.1 x 1.5 cm.? There is decreased subcutaneous fat stranding within the visualized neck soft tissues.? No lymphadenopathy by size criteria. ? Vascular:? Visualized vascular structures appear patent throughout.? Bony vascular foramina and canals appear normal.? ? Bones:? Facial bones appear intact, without fractures, erosions, or destruction.? Visualized portions of the skull base and auditory canals also appear normal.? ? Sinuses:? Paranasal sinuses are aerated without fluid levels, mucosal thickening, or mucoceles.? Mastoid air cells are aerated.? ? IMPRESSION:? ? 1. Slightly increased right periorbital soft tissue swelling with decrease in size of a supraorbital subcutaneous hematoma suggestive of evolving posttraumatic changes. ? 2. Intact appearance of the globes.? No retro bulbar fluid collections or mass within the orbits. ? 3. No facial bone fractures identified. ? 4. Slight decrease in size of previously described right submandibular hematoma.? Recommend clinical follow-up to demonstrate resolution.? ? ? Dictated by: Sebastian Bhardwaj M.D. on 12/27/2021 at 21:03 ? ? Approved by: Sebastian Bhardwaj M.D. on 12/27/2021 at 21:13 ? [facility] Narrative Medical decision making narrative: Patient is here for the 3rd time she was here yesterday for pain medication refill, states that she needs more. As she fell 1 week ago. She is having some eye pain she has continued swelling and bruising. Concern for possible complication. CT is negative no retrobulbar hematoma noted, pressure and eyes are negative. She has a right subconjunctival hematoma it is very mild actually. No cause of increased pain identified. She has an appointment with her primary care provider in 2 days. She already received a pain medication refill yesterday I will not be filling her oxycodone again today. Difficult to take Tylenol and ibuprofen platelets actually looks better today however hesitant to take maximum amount of Tylenol due to chronic liver failure and hesitant to take ibuprofen with increased bleeding risk. Although for short time may be okay. Discharge Plan Departure Patient Disposition: Home Clinical Impression: Acute facial pain, Contusion of face Activity Restrictions/Additional Instructions: *You have been diagnosed with contusion, right eye pain *What to do: Unfortunately at this time he just had a refill of pain medication yesterday I cannot be failure pain medication today. Your workup in the emergency department is overall reassuring. *Continue to take medications as directed Tylenol 1000 mg every 8 hours for 1 week (be careful because her liver is already damaged from drinking no longer than 1 week) Ibuprofen 600 mg every 8 hours for 1 week only *Follow up with your primary care provider in 2-3 days or call [phone] *Return to ER if you should have loss of vision, recurrent falls or any new, worsening or concerning symptoms Prescriptions: No Action hydrocodone-acetaminophen 5-325 mg tablet 1 tab PO Q6H PRN (Reason: pain) Qty: 10 0RF ondansetron 4 mg tablet,disintegrating 4 mg PO Q8H PRN (Reason: nausea and vomiting) Qty: 10 0RF hydrocodone-acetaminophen 5-325 mg tablet 1 tab PO Q6H PRN (Reason: pain) Qty: 7 0RF diazepam [Valium] 10 mg tablet 10 mg PO TID PRN (Reason: muscle spasm) Qty: 10 0RF oxycodone 10 mg tablet 10 mg PO Q6H PRN (Reason: pain) Qty: 15 0RF metoclopramide HCl [Reglan] 10 mg tablet 10 mg PO Q6H PRN (Reason: nausea and vomiting) Qty: 15 0RF oxycodone 5 mg tablet 5 mg PO Q6H PRN (Reason: pain) Qty: 15 0RF tramadol 50 mg tablet 50 mg PO Q6-8H PRN (Reason: pain) Qty: 20 0RF methocarbamol 750 mg tablet 750 mg PO Q6H PRN (Reason: spasm) Qty: 30 0RF Visit Report Forms: Patient Portal/API
--- NOTE | 2021-12-27 20:38 | DI.CT.S_ITS ---
PROCEDURE: CT FACIAL BONES W CON INDICATIONS: worsening right eye pain and swellng after fall etoh TECHNIQUE: After the administration of intravenous contrast, 2.5 mm axial sections acquired from the mid-neck to the frontal sinuses, with coronal and sagittal reformats. For radiation dose reduction, the following was used: automated exposure control, adjustment of mA and/or kV according to patient size. COMPARISON: [facility], CT, CT SOFT TISSUE NECK W CON, 12/21/2021, 20:08. [facility], CT, CT HEAD/BRAIN WO CON, 12/21/2021, 20:08. FINDINGS: Image quality: Excellent. Soft tissues: There is right periorbital soft tissue swelling redemonstrated. There is also a right supraorbital region of soft tissue swelling with a subcutaneous hematoma which has decreased in size compared to the prior study. The globes appear intact. No retro bulbar mass or fluid collections. There is interval decrease in size a right submandibular hematoma now measuring up to 2.1 x 1.5 cm. There is decreased subcutaneous fat stranding within the visualized neck soft tissues. No lymphadenopathy by size criteria. Vascular: Visualized vascular structures appear patent throughout. Bony vascular foramina and canals appear normal. Bones: Facial bones appear intact, without fractures, erosions, or destruction. Visualized portions of the skull base and auditory canals also appear normal. Sinuses: Paranasal sinuses are aerated without fluid levels, mucosal thickening, or mucoceles. Mastoid air cells are aerated. IMPRESSION: 1. Slightly increased right periorbital soft tissue swelling with decrease in size of a supraorbital subcutaneous hematoma suggestive of evolving posttraumatic changes. 2. Intact appearance of the globes. No retro bulbar fluid collections or mass within the orbits. 3. No facial bone fractures identified. 4. Slight decrease in size of previously described right submandibular hematoma. Recommend clinical follow-up to demonstrate resolution. Dictated by: Sebastian Bhardwaj M.D. on 12/27/2021 at 21:03 Approved by: Sebastian Bhardwaj M.D. on 12/27/2021 at 21:13
[2021-12-27 20:44] LABS: Add Manual Diff / Slide Review NO; Basophils Absolute Auto 0 /uL (0-100); Basophils Percent Auto 0.3 % (0-2); Eosinophils Absolute Auto 100 /uL (0-450); Eosinophils Percent Auto 2.9 % (2-4); Hematocrit 35.6 % (36-46); Hemoglobin 12.3 g/dL (12.0-16.0); Lymphocytes Absolute Auto 2300 /uL (1100-4500); Lymphocytes Percent Auto 46.2 % (25-40); Mean Corpuscular HGB Conc 34.6 % (30-36); Mean Corpuscular Volume 104.2 fL (80-100); Monocytes Absolute Auto 700 /uL (0-900); Monocytes Percent Auto 13.6 % (3-14); Neutrophils Absolute Auto 1800 /uL (1500-7000); Platelet Count 166 X10^3/uL (150-400); Red Blood Cell Count 3.42 X10^6/uL (4.0-5.2); Red Cell Distribution Width 12.9 % (11.6-14.8); White Blood Cell Count 4.9 X10^3/uL (4.5-11.0)
[2021-12-27 21:02] LABS: Alanine Aminotransferase 53 IU/L (<35); Albumin 4.8 g/dL (3.5-5.0); Albumin Globulin Ratio 1.2 (1.0-2.8); Alkaline Phosphatase 100 U/L (38-126); Aspartate Aminotransferase 99 IU/L (14-36); BUN Creatinine Ratio 15.1 (6-22); Bilirubin Total 3.2 mg/dL (0.2-1.3); Blood Urea Nitrogen 14 mg/dL (7-17); Calcium 9.4 mg/dL (8.4-10.2); Carbon Dioxide 26 mmol/L (22-32); Chloride 99 mmol/L (98-107); Estimated Glomerular Filt Rate > 60 mL/min (>60); Globulin 3.9 g/dL (1.7-4.1); Glucose 102 mg/dL (70-100); HEMOLYSIS < 15 (0-50); Potassium 3.7 mmol/L (3.4-5.1); Sodium 137 mmol/L (137-145); Total Protein 8.7 g/dL (6.3-8.2)
[2021-12-27 21:12] LABS: INR 1.2 (0.9-1.3); Prothrombin Time 13.7 SECONDS (10.1-12.7)
[2021-12-27 21:14] LABS: PTT Partial Thromboplastin Tim 41 SECONDS (26.4-36.2)
[2021-12-27] MEDS: PROPARACAINE 0.5% OPHTH SOL 1 DROPS EYE-RIGHT (21:24)
[2021-12-27] MEDS: HYDROMORPHONE 1 MG INJ IV (21:24)
[2021-12-27 22:12] VITALS: BP 105/67
[2021-12-27] MEDS: FLUORESCEIN 1 MG STRIP EYE-BOTH (22:12)
[2021-12-27 22:13] VITALS: PULSE 84; O2SAT 97
== END 2021-12-27 22:14 | disposition home or self-care (01) ==
PROVIDERS: Emergency Provider Emergency Medicine
DX: S00.83XA Contusion of other part of head, initial encounter (principal); R51.9 Headache, unspecified; W22.8XXA Striking against or struck by other objects, initial encounter
CPT/HCPCS: 36415; 70487; 80053; 85025; 85610; 85730; 96374; 99284; J1170; Q9967

== ENCOUNTER → 2022-01-08 12:30 | Outpatient (CLI) | payer OTHER, MEDICAID, SELFPAY ==
[2022-01-08 13:08] LABS: Add Manual Diff / Slide Review NO; Basophils Absolute Auto 100 /uL (0-100); Eosinophils Absolute Auto 300 /uL (0-450); Hematocrit 38.6 % (36-46); Hemoglobin 13.3 g/dL (12.0-16.0); Lymphocytes Absolute Auto 1900 /uL (1100-4500); Lymphocytes Percent Auto 28.5 % (25-40); Mean Corpuscular HGB Conc 34.5 % (30-36); Mean Corpuscular Hemoglobin 35.5 PG (26-34); Mean Corpuscular Volume 103.1 fL (80-100); Monocytes Absolute Auto 400 /uL (0-900); Monocytes Percent Auto 6.7 % (3-14); Neutrophils Absolute Auto 4000 /uL (1500-7000); Neutrophils Percent Auto 59.8 % (50-75); Platelet Count 188 X10^3/uL (150-400); Red Blood Cell Count 3.75 X10^6/uL (4.0-5.2); Red Cell Distribution Width 12.6 % (11.6-14.8); White Blood Cell Count 6.7 X10^3/uL (4.5-11.0)
[2022-01-08 13:09] LABS: INR 1.3 (0.9-1.3); Prothrombin Time 14.4 SECONDS (10.1-12.7)
[2022-01-08 13:18] LABS: BUN Creatinine Ratio 18.6 (6-22); Blood Urea Nitrogen 13 mg/dL (7-17); Calcium 9.1 mg/dL (8.4-10.2); Carbon Dioxide 25 mmol/L (22-32); Chloride 107 mmol/L (98-107); Estimated Glomerular Filt Rate > 60 mL/min (>60); Glucose 114 mg/dL (70-100); HEMOLYSIS < 15 (0-50); Potassium 3.9 mmol/L (3.4-5.1); Sodium 141 mmol/L (137-145)
== END ==
PROVIDERS: PCP Nurse Practitioner; Referring Provider Nurse Practitioner; Visit Provider Nurse Practitioner
DX: K70.31 Alcoholic cirrhosis of liver with ascites (principal)
CPT/HCPCS: 36415; 80048; 80321; 82105; 85025; 85610

== ENCOUNTER → 2022-04-07 15:54 | Outpatient (CLI) | payer OTHER, MEDICAID, SELFPAY ==
[2022-04-07 17:09] LABS: Add Manual Diff / Slide Review NO; Basophils Absolute Auto 100 /uL (0-100); Basophils Percent Auto 0.8 % (0-2); Eosinophils Absolute Auto 300 /uL (0-450); Eosinophils Percent Auto 3.5 % (2-4); Hematocrit 39.6 % (36-46); Lymphocytes Absolute Auto 3000 /uL (1100-4500); Lymphocytes Percent Auto 42.3 % (25-40); Mean Corpuscular HGB Conc 35.3 % (30-36); Mean Corpuscular Hemoglobin 33.3 PG (26-34); Mean Corpuscular Volume 94.3 fL (80-100); Monocytes Absolute Auto 400 /uL (0-900); Monocytes Percent Auto 5.5 % (3-14); Neutrophils Absolute Auto 3400 /uL (1500-7000); Neutrophils Percent Auto 47.9 % (50-75); Platelet Count 206 X10^3/uL (150-400); Red Blood Cell Count 4.19 X10^6/uL (4.0-5.2); Red Cell Distribution Width 13.2 % (11.6-14.8); White Blood Cell Count 7.2 X10^3/uL (4.5-11.0)
[2022-04-07 17:15] LABS: Alanine Aminotransferase 32 IU/L (<35); Albumin 4.6 g/dL (3.5-5.0); Albumin Globulin Ratio 1.3 (1.0-2.8); Alkaline Phosphatase 59 U/L (38-126); Aspartate Aminotransferase 41 IU/L (14-36); Bilirubin Total 1.1 mg/dL (0.2-1.3); Bilirubin Unconjugated 0.9 mg/dL (0.0-1.1); Blood Urea Nitrogen 16 mg/dL (7-17); Calcium 9.7 mg/dL (8.4-10.2); Carbon Dioxide 27 mmol/L (22-32); Chloride 104 mmol/L (98-107); Estimated Glomerular Filt Rate > 60 mL/min (>60); Globulin 3.6 g/dL (1.7-4.1); Glucose 102 mg/dL (70-100); HEMOLYSIS 19 (0-50); Potassium 4.6 mmol/L (3.4-5.1); Sodium 141 mmol/L (137-145); Total Protein 8.2 g/dL (6.3-8.2)
[2022-04-07 17:27] LABS: INR 1.2 (0.9-1.3); Prothrombin Time 14.3 SECONDS (10.1-12.7)
== END ==
PROVIDERS: Referring Provider Nurse Practitioner; Visit Provider Nurse Practitioner
DX: K70.31 Alcoholic cirrhosis of liver with ascites (principal)
CPT/HCPCS: 36415; 80048; 80076; 80321; 85025; 85610

== ENCOUNTER 2022-11-30 16:39 | Inpatient (IN) | payer OTHER, MEDICAID, SELFPAY ==
[2022-11-30] VITALS (13 sets, daily range): BP systolic 124–147; BP diastolic 79–100; PULSE 81–104; RESP 13–42; TEMP 36.3–37; O2SAT 94–100; BMI 25.8
[2022-11-30 18:17] LABS: Add Manual Diff / Slide Review NO; Basophils Absolute Auto 0 /uL (0-100); Basophils Percent Auto 0.6 % (0-2); Eosinophils Absolute Auto 200 /uL (0-450); Eosinophils Percent Auto 3.3 % (2-4); Hematocrit 35.8 % (36-46); Hemoglobin 12.6 g/dL (12.0-16.0); Lymphocytes Absolute Auto 1200 /uL (1100-4500); Lymphocytes Percent Auto 21.7 % (25-40); Mean Corpuscular HGB Conc 35.3 % (30-36); Mean Corpuscular Hemoglobin 34.7 PG (26-34); Mean Corpuscular Volume 98.2 fL (80-100); Monocytes Absolute Auto 600 /uL (0-900); Monocytes Percent Auto 10.3 % (3-14); Neutrophils Absolute Auto 3700 /uL (1500-7000); Neutrophils Percent Auto 64.1 % (50-75); Platelet Count 98 X10^3/uL (150-400); Red Blood Cell Count 3.64 X10^6/uL (4.0-5.2); Red Cell Distribution Width 14.6 % (11.6-14.8); White Blood Cell Count 5.8 X10^3/uL (4.5-11.0)
[2022-11-30 18:18] LABS: Alanine Aminotransferase 132 IU/L (<35); Albumin 4.9 g/dL (3.5-5.0); Albumin Globulin Ratio 1.3 (1.0-2.8); Alkaline Phosphatase 108 U/L (38-126); Aspartate Aminotransferase 227 IU/L (14-36); BUN Creatinine Ratio 22.1 (6-22); Bilirubin Total 2.4 mg/dL (0.2-1.3); Blood Urea Nitrogen 15 mg/dL (7-17); Calcium 10.3 mg/dL (8.4-10.2); Carbon Dioxide 36 mmol/L (22-32); Chloride 90 mmol/L (98-107); Estimated Glomerular Filt Rate > 60 mL/min (>60); Globulin 3.8 g/dL (1.7-4.1); Glucose 138 mg/dL (70-100); HEMOLYSIS < 15 (0-50); Sodium 135 mmol/L (137-145); Total Protein 8.7 g/dL (6.3-8.2)
[2022-11-30] MEDS: ONDANSETRON 4 MG/2 ML INJ IV (18:20)
[2022-11-30 18:25] LABS: Potassium 2.7 mmol/L (3.4-5.1)
[2022-11-30 18:28] LABS: INR 1.2 (0.9-1.3); Prothrombin Time 13.3 SECONDS (10.1-12.7)
[2022-11-30 18:43] LABS: Lipase 8799 U/L (23-300)
[2022-11-30] MEDS: HYDROMORPHONE 1 MG INJ IV ×2 (18:54→20:38)
[2022-11-30] MEDS: PANTOPRAZOLE 40 MG VIAL IV (18:54)
[2022-11-30] MEDS: POTASSIUM CHLORIDE IN WATER 10 MEQ/100 ML PIGGYBACK 100 MEQ IV ×4 (18:55→23:19)
--- NOTE | 2022-11-30 18:58 | ED.GENADULT ---
HPI - General Adult General Chief complaint: Abdominal Pain Stated complaint: difficulty breathing, thinks pancreatitis Time Seen by Provider: 11/30/22 18:09 Source: patient Mode of arrival: Ambulatory Limitations: no limitations History of Present Illness HPI narrative: Patient is a 37-year-old female. Has a history of cirrhosis secondary to alcohol abuse. Has been sober for the past 20 months. Initially she stated that she is never had pancreatitis in the past and that she thought maybe she would pancreatitis today because she looked up the symptoms on the Internet however upon further questioning she states she has had pancreatitis. She states for the past week or so she is had upper abdominal discomfort and vomiting. Has not been able to take most of her medications because of this. No diarrhea. No fevers. she has had her gallbladder removed. She denies any urinary symptoms. . No fevers. Has not tried anything for symptoms. Related Data Home Medications Medication Instructions Recorded Confirmed baclofen 10 mg tablet 10 mg PO TID 11/30/22 11/30/22 furosemide 20 mg tablet 20 mg PO DAILY 11/30/22 11/30/22 gabapentin 300 mg capsule 300 mg PO TID 11/30/22 11/30/22 omeprazole 40 mg capsule,delayed 40 mg PO DAILY 11/30/22 11/30/22 release quetiapine 50 mg tablet 50 mg PO BEDTIME 11/30/22 11/30/22 rifaximin 550 mg tablet (Xifaxan) 550 mg PO BID 11/30/22 11/30/22 spironolactone 50 mg tablet 50 mg PO DAILY 11/30/22 11/30/22 Allergies Allergy/AdvReac Type Severity Reaction Status Date / Time Penicillins Allergy Verified 11/30/22 17:21 Review of Systems Review of Systems ROS Unobtainable: All systems reviewed & are unremarkable except as noted in HPI and below Patient History Medical History Abnormal Pap smear of cervix Alcoholic liver failure Anemia Anxiety Chicken pox Chronic diarrhea Chronic pancreatitis due to acute alcohol intoxication GERD (gastroesophageal reflux disease) History of alcohol abuse History of esophageal varices with bleeding Hypotension Liver failure Prolonged Q-T interval on ECG Surgical History History of abdominal paracentesis History of cholecystectomy History of gastrostomy tube placement Family History (Updated 11/30/22 @ 23:54 by NICKOLAS AvilesEN[facility]) Father COPD (chronic obstructive pulmonary disease) Cancer Grandmother Cancer Grandfather Diabetes mellitus Social History household members: family Smoking Status: Former smoker alcohol intake: former substance use type: does not use Smoking Status: Former smoker Substance Use Type: does not use Exam Initial Vital Signs Initial Vital Signs: Vital Signs Temperature 98.6 F 11/30/22 17:08 Pulse Rate 104 H 11/30/22 17:08 Respiratory Rate 18 11/30/22 17:08 Blood Pressure 143/95 H 11/30/22 17:08 Pulse Oximetry 100 11/30/22 17:08 Oxygen Delivery Method Room Air 11/30/22 17:08 Const General: cooperative, comfortable and No ill appearing HENMT Head: normal to inspection and normocephalic Resp Effort & Inspection: normal respiratory effort Auscultation: clear to auscultation bilaterally Cardio Rate: regular rate Rhythm: regular rhythm GI Inspection: normal to inspection and non-distended Palpation: No soft, No guarding and tender ( Left upper quadrant and epigastric) Skin General: no rashes or lesions noted Neuro General: patient alert, patient awake, patient oriented x3 and moves all extremities Extrem General: normal to inspection and capillary refill normal Psych Appearance: grossly normal and well kempt Course Orders Ordered: ED Orders 11/30/22 17:21 EKG-12 Lead Stat 11/30/22 17:55 Acetaminophen Stat Complete Blood Count AUTO DIFF Stat Comprehensive Metabolic Panel Stat Ethanol (ETOH) Stat Lipase Stat Prothrombin Time INR Stat 11/30/22 19:23 CT abdomen pelvis w con Stat 11/30/22 19:39 Ictotest Urine Stat UA Complete [Urinalysis and Microscopic] Stat Acetaminophen (Acetaminophen 325 Mg Tablet) 650 mg PO Q6H PRN PRN Reason: Fever/Mild Pain (1-3) Enoxaparin Sodium (Enoxaparin 40 Mg/0.4 Ml Syringe) 40 mg SUBCUT DAILY FANTA Hydromorphone HCl (Hydromorphone 1 Mg Inj) 1 mg IV Q6H PRN PRN Reason: Pain, Moderate (4-6) Sodium Chloride (Normal Saline 0.9%) 1,000 mls @ 250 mls/hr IV CONT [facility] Last Admin: 11/30/22 23:00 Dose: 250 mls/hr Documented By: TLS Loperamide HCl (Loperamide 2 Mg Capsule) 2 mg PO QID PRN PRN Reason: Diarrhea Naloxone HCl (Naloxone 0.4 Mg/Ml Vial) 0.2 mg IV Q2MIN PRN PRN Reason: Opiate Reversal Ondansetron HCl (Ondansetron 4 Mg/2 Ml Inj) 4 mg IV Q6HR PRN PRN Reason: Nausea And Vomiting Discontinued Medications Hydromorphone HCl (Hydromorphone 1 Mg Inj) 1 mg IV NOW ONE Stop: 11/30/22 18:44 Last Admin: 11/30/22 18:54 Dose: 1 mg Documented By: NR Hydromorphone HCl (Hydromorphone 1 Mg Inj) 1 mg IV NOW ONE Stop: 11/30/22 20:33 Last Admin: 11/30/22 20:38 Dose: 1 mg Documented By: Hydromorphone HCl (Hydromorphone 0.5 Mg Inj) 0.5 mg IV Q4H PRN PRN Reason: Pain, Severe (7-10) Last Admin: 11/30/22 22:55 Dose: 0.5 mg Documented By: ESTEVAN POTASSIUM CHLORIDE IN WATER (Potassium Cl 10 Meq/100 Ml Ileana) 10 meq in 100 mls @ 100 mls/hr IV Q1H [facility] Stop: 11/30/22 20:29 Last Infusion: 11/30/22 21:29 Dose: 0 mls/hr Documented By: Admin: 11/30/22 20:23 Dose: 100 mls/hr Documented By: Infusion: 11/30/22 20:20 Dose: 0 mls/hr Documented By: Admin: 11/30/22 18:55 Dose: 100 mls/hr Documented By: NR Sodium Chloride (Normal Saline 0.9%) 1,000 mls @ 250 mls/hr IV CONT [facility] Last Admin: 11/30/22 19:30 Dose: 250 mls/hr Documented By: POTASSIUM CHLORIDE IN WATER (Potassium Cl 10 Meq/100 Ml Ileana) 10 meq in 100 mls @ 100 mls/hr IV Q1H [facility] Stop: 11/30/22 23:59 Last Admin: 11/30/22 23:19 Dose: 100 mls/hr Documented By: Infusion: 11/30/22 23:12 Dose: 100 mls/hr Documented By: Admin: 11/30/22 22:12 Dose: 100 mls/hr Documented By: Metoclopramide HCl (Metoclopramide 10 Mg/2 Ml Inj) 10 mg IV NOW ONE Stop: 11/30/22 22:08 Last Admin: 11/30/22 22:12 Dose: 10 mg Documented By: Ondansetron HCl (Ondansetron 4 Mg Odt) 4 mg PO NOW PRN PRN Reason: Nausea And Vomiting Ondansetron HCl (Ondansetron 4 Mg/2 Ml Inj) 4 mg IV NOW PRN PRN Reason: Nausea And Vomiting Last Admin: 11/30/22 18:20 Dose: 4 mg Documented By: NR Pantoprazole Sodium (Pantoprazole 40 Mg Vial) 40 mg IV NOW ONE Stop: 11/30/22 18:44 Last Admin: 11/30/22 18:54 Dose: 40 mg Documented By: NR Vital Signs Vital signs: Vital Signs - 8 hr 11/30/22 17:08 11/30/22 18:01 11/30/22 18:30 Temperature 98.6 F Pulse Rate 104 H 86 Respiratory Rate 18 42 H Blood Pressure 143/95 H 124/84 Pulse Oximetry 100 95 Oxygen Delivery Method Room Air 11/30/22 18:30 11/30/22 19:00 11/30/22 19:00 Temperature Pulse Rate 85 87 Respiratory Rate 18 20 Blood Pressure 131/91 H Pulse Oximetry 94 98 Oxygen Delivery Method 11/30/22 19:35 11/30/22 19:35 11/30/22 19:37 Temperature Pulse Rate 87 Respiratory Rate Blood Pressure 132/84 147/100 H Pulse Oximetry Oxygen Delivery Method 11/30/22 19:37 11/30/22 20:00 11/30/22 20:19 Temperature Pulse Rate 85 88 Respiratory Rate 21 13 Blood Pressure 130/83 Pulse Oximetry 99 99 Oxygen Delivery Method Room Air 11/30/22 20:19 11/30/22 20:30 11/30/22 21:00 Temperature Pulse Rate 91 H 88 84 Respiratory Rate 23 23 17 Blood Pressure Pulse Oximetry 99 97 97 Oxygen Delivery Method Medical Decision Making Medical Records Medical records reviewed: Yes I reviewed the patient's medical records. Lab Data Lab results reviewed: Yes I reviewed the patient's lab results. 11/30/22 17:55 11/30/22 17:55 Labs: Lab Results 11/30/22 11/30/22 11/30/22 Range/Units 17:55 17:55 17:55 WBC 5.8 (4.5-11.0) X10^3/uL RBC 3.64 L (4.0-5.2) X10^6/uL Hgb 12.6 (12.0-16.0) g/dL Hct 35.8 L (36-46) % MCV 98.2 (80-100) fL MCH 34.7 H (26-34) PG MCHC 35.3 (30-36) % RDW 14.6 (11.6-14.8) % Plt Count 98 L (150-400) X10^3/uL Neut % (Auto) 64.1 (50-75) % Lymph % (Auto) 21.7 L (25-40) % [place] % (Auto) 10.3 (3-14) % Eos % (Auto) 3.3 (2-4) % Baso % (Auto) 0.6 (0-2) % Neut # (Auto) 3700 (0095-2946) /uL Lymph # (Auto) 1200 (1722-1147) /uL [place] # (Auto) 600 (0-900) /uL Eos # (Auto) 200 (0-450) /uL Baso # (Auto) 0 (0-100) /uL PT 13.3 H (10.1-12.7) SECONDS INR 1.2 (0.9-1.3) Sodium 135 L (137-145) mmol/L Potassium 2.7 L* (3.4-5.1) mmol/L Chloride 90 L (98-107) mmol/L Carbon Dioxide 36 H (22-32) mmol/L BUN 15 (7-17) mg/dL Creatinine 0.68 (0.52-1.04) mg/dL Estimated GFR > 60 (>60) mL/min BUN/Creatinine Ratio 22.1 H (6-22) Glucose 138 H (70-100) mg/dL Lactate (0.7-2.1) mmol/L Calcium 10.3 H (8.4-10.2) mg/dL Magnesium (1.6-2.3) mg/dL Total Bilirubin 2.4 H (0.2-1.3) mg/dL AST 227 H (14-36) IU/L ALT 132 H (<35) IU/L Alkaline Phosphatase 108 (38-126) U/L Lactate Dehydrogenase (120-246) U/L C-Reactive Protein (<1.0) mg/dL Total Protein 8.7 H (6.3-8.2) g/dL Albumin 4.9 (3.5-5.0) g/dL Globulin 3.8 (1.7-4.1) g/dL Albumin/Globulin Ratio 1.3 (1.0-2.8) Triglycerides (35-150) mg/dL Amylase (30-110) U/L Lipase 8799 H (23-300) U/L Urine Color Urine Appearance Urine pH (4.5-8.0) Ur Specific [place] (1.000-1.035) Urine Protein (Negative) Urine Glucose (UA) (Negative) g/dL Urine Ketones (NEGATIVE) Urine Occult Blood (Negative) Urine Nitrate (Negative) Urine Bilirubin (NEGATIVE) Ur Bilirubin Confirm (Negative) Urine Urobilinogen (0.2) E.U./dL Ur Leukocyte Esterase (NEGATIVE) Urine RBC (0-5/HPF) Urine WBC (0-5/HPF) Ur Squamous Epith Cells (0-5/HPF) Calcium Oxalate Crystal Urine Bacteria (None) Ur Culture Indicated? U Opiates 300ng/mL cut (Negative) Ur Oxycodone Screen (Negative) Urine Methadone Screen (Negative) Acetaminophen (10-30) ug/mL Ur Barbiturates Screen (Negative) U Tricyclic Antidepress (Negative) Ur Phencyclidine Scrn (Negative) Ur Amphetamines Screen (Negative) U Methamphetamines Scrn (Negative) Ur MDMA Scrn (Ecstasy) (Negative) U Benzodiazepines Scrn (Negative) Urine Cocaine Screen (Negative) U Marijuana (THC) Screen (Negative) Ethyl Alcohol ( - 10) mg/dL 11/30/22 11/30/22 11/30/22 Range/Units 17:55 17:55 17:55 WBC (4.5-11.0) X10^3/uL RBC (4.0-5.2) X10^6/uL Hgb (12.0-16.0) g/dL Hct (36-46) % MCV (80-100) fL MCH (26-34) PG MCHC (30-36) % RDW (11.6-14.8) % Plt Count (150-400) X10^3/uL Neut % (Auto) (50-75) % Lymph % (Auto) (25-40) % [place] % (Auto) (3-14) % Eos % (Auto) (2-4) % Baso % (Auto) (0-2) % Neut # (Auto) (2419-2032) /uL Lymph # (Auto) (9178-7497) /uL [place] # (Auto) (0-900) /uL Eos # (Auto) (0-450) /uL Baso # (Auto) (0-100) /uL PT (10.1-12.7) SECONDS INR (0.9-1.3) Sodium (137-145) mmol/L Potassium (3.4-5.1) mmol/L Chloride (98-107) mmol/L Carbon Dioxide (22-32) mmol/L BUN (7-17) mg/dL Creatinine (0.52-1.04) mg/dL Estimated GFR (>60) mL/min BUN/Creatinine Ratio (6-22) Glucose (70-100) mg/dL Lactate 1.6 (0.7-2.1) mmol/L Calcium (8.4-10.2) mg/dL Magnesium 1.9 (1.6-2.3) mg/dL Total Bilirubin (0.2-1.3) mg/dL AST (14-36) IU/L ALT (<35) IU/L Alkaline Phosphatase (38-126) U/L Lactate Dehydrogenase 236 (120-246) U/L C-Reactive Protein 1.7 H (<1.0) mg/dL Total Protein (6.3-8.2) g/dL Albumin (3.5-5.0) g/dL Globulin (1.7-4.1) g/dL Albumin/Globulin Ratio (1.0-2.8) Triglycerides 101 (35-150) mg/dL Amylase 622 H (30-110) U/L Lipase (23-300) U/L Urine Color Urine Appearance Urine pH (4.5-8.0) Ur Specific [place] (1.000-1.035) Urine Protein (Negative) Urine Glucose (UA) (Negative) g/dL Urine Ketones (NEGATIVE) Urine Occult Blood (Negative) Urine Nitrate (Negative) Urine Bilirubin (NEGATIVE) Ur Bilirubin Confirm (Negative) Urine Urobilinogen (0.2) E.U./dL Ur Leukocyte Esterase (NEGATIVE) Urine RBC (0-5/HPF) Urine WBC (0-5/HPF) Ur Squamous Epith Cells (0-5/HPF) Calcium Oxalate Crystal Urine Bacteria (None) Ur Culture Indicated? U Opiates 300ng/mL cut (Negative) Ur Oxycodone Screen (Negative) Urine Methadone Screen (Negative) Acetaminophen < 10 (10-30) ug/mL Ur Barbiturates Screen (Negative) U Tricyclic Antidepress (Negative) Ur Phencyclidine Scrn (Negative) Ur Amphetamines Screen (Negative) U Methamphetamines Scrn (Negative) Ur MDMA Scrn (Ecstasy) (Negative) U Benzodiazepines Scrn (Negative) Urine Cocaine Screen (Negative) U Marijuana (THC) Screen (Negative) Ethyl Alcohol < 10 < 10 ( - 10) mg/dL 11/30/22 11/30/22 11/30/22 Range/Units 19:39 19:39 19:39 WBC (4.5-11.0) X10^3/uL RBC (4.0-5.2) X10^6/uL Hgb (12.0-16.0) g/dL Hct (36-46) % MCV (80-100) fL MCH (26-34) PG MCHC (30-36) % RDW (11.6-14.8) % Plt Count (150-400) X10^3/uL Neut % (Auto) (50-75) % Lymph % (Auto) (25-40) % [place] % (Auto) (3-14) % Eos % (Auto) (2-4) % Baso % (Auto) (0-2) % Neut # (Auto) (4523-6971) /uL Lymph # (Auto) (4739-0150) /uL [place] # (Auto) (0-900) /uL Eos # (Auto) (0-450) /uL Baso # (Auto) (0-100) /uL PT (10.1-12.7) SECONDS INR (0.9-1.3) Sodium (137-145) mmol/L Potassium (3.4-5.1) mmol/L Chloride (98-107) mmol/L Carbon Dioxide (22-32) mmol/L BUN (7-17) mg/dL Creatinine (0.52-1.04) mg/dL Estimated GFR (>60) mL/min BUN/Creatinine Ratio (6-22) Glucose (70-100) mg/dL Lactate (0.7-2.1) mmol/L Calcium (8.4-10.2) mg/dL Magnesium (1.6-2.3) mg/dL Total Bilirubin (0.2-1.3) mg/dL AST (14-36) IU/L ALT (<35) IU/L Alkaline Phosphatase (38-126) U/L Lactate Dehydrogenase (120-246) U/L C-Reactive Protein (<1.0) mg/dL Total Protein (6.3-8.2) g/dL Albumin (3.5-5.0) g/dL Globulin (1.7-4.1) g/dL Albumin/Globulin Ratio (1.0-2.8) Triglycerides (35-150) mg/dL Amylase (30-110) U/L Lipase (23-300) U/L Urine Color Other Urine Appearance Clear Urine pH 7.0 (4.5-8.0) Ur Specific [place] 1.010 (1.000-1.035) Urine Protein Trace H (Negative) Urine Glucose (UA) Negative (Negative) g/dL Urine Ketones Trace H (NEGATIVE) Urine Occult Blood Negative (Negative) Urine Nitrate Negative (Negative) Urine Bilirubin 1+ H (NEGATIVE) Ur Bilirubin Confirm Positive H (Negative) Urine Urobilinogen 4.0 H (0.2) E.U./dL Ur Leukocyte Esterase Trace H (NEGATIVE) Urine RBC 0-1/hpf (0-5/HPF) Urine WBC 0-1/hpf (0-5/HPF) Ur Squamous Epith Cells 5-10 /hpf H (0-5/HPF) Calcium Oxalate Crystal Many H Urine Bacteria None seen (None) Ur Culture Indicated? Cult not indicated U Opiates 300ng/mL cut Negative (Negative) Ur Oxycodone Screen Negative (Negative) Urine Methadone Screen Negative (Negative) Acetaminophen (10-30) ug/mL Ur Barbiturates Screen Negative (Negative) U Tricyclic Antidepress Negative (Negative) Ur Phencyclidine Scrn Negative (Negative) Ur Amphetamines Screen Negative (Negative) U Methamphetamines Scrn Negative (Negative) Ur MDMA Scrn (Ecstasy) Negative (Negative) U Benzodiazepines Scrn Negative (Negative) Urine Cocaine Screen Negative (Negative) U Marijuana (THC) Screen Negative (Negative) Ethyl Alcohol ( - 10) mg/dL Point of Care Testing Test Results Negative Urine Dip Bedside Urine Glucose Negative Bedside Urine Bilirubin + 1 Bedside Urine Ketone - Negative Urine Specific [place] 1.010 Bedside Urine Occult Blood - Negative Bedside Urine pH 7.0 Bedside Urine Protein +/- 15 Bedside Urine Urobilinogen +/- 1mg Bedside Urine Nitrite - Negative Bedside Urine Leukocytes +/- 15 Esterase Point of care testing: Point of Care Testing Test Results Negative Urine Dip Bedside Urine Glucose Negative Bedside Urine Bilirubin + 1 Bedside Urine Ketone - Negative Urine Specific [place] 1.010 Bedside Urine Occult Blood - Negative Bedside Urine pH 7.0 Bedside Urine Protein +/- 15 Bedside Urine Urobilinogen +/- 1mg Bedside Urine Nitrite - Negative Bedside Urine Leukocytes +/- [address] scan - abdomen/pelvis: Radiologist's Impression: ROCEDURE:? CT ABDOMEN PELVIS W CON ? INDICATIONS:? Jaundice/pancreatitis/abdominal pain ? TECHNIQUE:? After the administration of oral and IV contrast, axial sections were acquired from the lung bases to the pubic symphysis.? Coronal and sagittal reformats were performed.? For radiation dose reduction, the following was used:? automated exposure control, adjustment of mA and/or kV according to patient size. ? COMPARISON:? [facility]ound, US, US ABDOMEN LIMITED, 10/25/2022, 9:47. ? FINDINGS:? Image quality:? Excellent.? ? Lung bases:? Unremarkable.? Small hiatal hernia. ? Heart:? No significant findings. ? ? ABDOMEN: Liver:? Liver is normal in size.? Nodule contour of liver consistent with cirrhosis.? Moderate hepatic steatosis.? ? Gallbladder:? Surgically absent.? ? Biliary ducts:? Unremarkable.? ? Pancreas:? Subtle stranding and edema around the pancreatic head consistent with pancreatitis.? ? Spleen:? Unremarkable.? ? Adrenal Glands:? Unremarkable.? ? Kidneys and Ureters:? There is a 1.4 cm cyst in right kidney..? ? ? Stomach and Bowel:? There are surgical sutures in stomach.? Small bowel loops, and colon are unremarkable.? Normal appendix. Peritoneum:? No abnormal intraperitoneal fluid.? No free air.? ? Ventral Wall: ? No hernia.? Abdominal Nodes:? No retroperitoneal or mesenteric adenopathy by size criteria.? Vessels:? Aorta and inferior vena cava are normal in size.? ? PELVIS: Pelvic Organs:? Uterus is normal.? There is an IUD.? ? Bladder:? Unremarkable.? ? Pelvic Nodes: No enlarged lymph nodes.? Miscellaneous: No inguinal hernias are seen. ? ? ? Bones:? Moderate degenerative disc disease at L4-L5 and L5-S1.? IMPRESSION:? ? 1.? Subtle stranding around the pancreatic head consistent with pancreatitis.? No CT findings to suggest pancreatic necrosis. ? 2. Cirrhotic liver with moderate fatty infiltration.? ? 3. Small hiatal hernia. ECG Data Attestation: I personally reviewed and interpreted this ECG as follows: Interpretation: Sinus rhythm Ventricular rate 84 Normal axis Normal QRS Normal QTC No ST T wave changes MDM Narrative Medical decision making narrative: patient does have I elevation in her bilirubin and also her LFTs but she also has a significantly elevated lipase. This is consistent with pancreatitis. This does fit her clinical presentation today. CT scan is also consistent with pancreatitis without signs of abscess or pseudocyst or other apparent cause of her abdominal pain today. given her history and her presentation and the pain with any sort of eating or drinking the actually has not been able to take any of her medications and admission to the hospital was required. I did discuss this with her and she expressed understanding and agreement. I then discussed the case with YURI Ballesteros the night hospitalist who will admit for further evaluation and treatment. Discharge Plan Departure Patient Disposition: Admitted As Inpatient Clinical Impression: Pancreatitis, Hyperbilirubinemia Admit Date/Time: 11/30/22 21:04 Admit Provider: Francoise Ballesteros
--- NOTE | 2022-11-30 19:23 | DI.CT.S_ITS ---
PROCEDURE: CT ABDOMEN PELVIS W CON INDICATIONS: Jaundice/pancreatitis/abdominal pain TECHNIQUE: After the administration of oral and IV contrast, axial sections were acquired from the lung bases to the pubic symphysis. Coronal and sagittal reformats were performed. For radiation dose reduction, the following was used: automated exposure control, adjustment of mA and/or kV according to patient size. COMPARISON: [facility]ound, US, US ABDOMEN LIMITED, 10/25/2022, 9:47. FINDINGS: Image quality: Excellent. Lung bases: Unremarkable. Small hiatal hernia. Heart: No significant findings. ABDOMEN: Liver: Liver is normal in size. Nodule contour of liver consistent with cirrhosis. Moderate hepatic steatosis. Gallbladder: Surgically absent. Biliary ducts: Unremarkable. Pancreas: Subtle stranding and edema around the pancreatic head consistent with pancreatitis. Spleen: Unremarkable. Adrenal Glands: Unremarkable. Kidneys and Ureters: There is a 1.4 cm cyst in right kidney.. Stomach and Bowel: There are surgical sutures in stomach. Small bowel loops, and colon are unremarkable. Normal appendix. Peritoneum: No abnormal intraperitoneal fluid. No free air. Ventral Wall: No hernia. Abdominal Nodes: No retroperitoneal or mesenteric adenopathy by size criteria. Vessels: Aorta and inferior vena cava are normal in size. PELVIS: Pelvic Organs: Uterus is normal. There is an IUD. Bladder: Unremarkable. Pelvic Nodes: No enlarged lymph nodes. Miscellaneous: No inguinal hernias are seen. Bones: Moderate degenerative disc disease at L4-L5 and L5-S1. IMPRESSION: 1. Subtle stranding around the pancreatic head consistent with pancreatitis. No CT findings to suggest pancreatic necrosis. 2. Cirrhotic liver with moderate fatty infiltration. 3. Small hiatal hernia. Dictated by: Christal Elkins M.D. on 11/30/2022 at 20:02 Approved by: Christal Elkins M.D. on 11/30/2022 at 20:15
[2022-11-30] MEDS: SODIUM CHLORIDE 0.9% 1,000 ML 250 ML IV ×2 (19:30→23:00)
[2022-11-30 20:00] LABS: Appearance Urine UA CLEAR; Bilirubin Urine UA 1+ (NEGATIVE); Color Urine UA OTHER; Glucose Urine UA NEGATIVE (Negative); Ketones Urine UA TRACE (NEGATIVE); Leukocyte Esterase Urine UA TRACE (NEGATIVE); Nitrite Urine UA NEGATIVE (Negative); Occult Blood Urine UA NEGATIVE (Negative); Protein Urine UA TRACE (Negative)
[2022-11-30 20:01] LABS: Ictotest Urine Positive (Negative)
[2022-11-30 20:06] LABS: RBC Urine 0-1/HPF (0-5/HPF); Squamous Epithelial Cell Urine 5-10 /HPF (0-5/HPF); WBC Urine 0-1/HPF (0-5/HPF)
[2022-11-30 20:07] LABS: Bacteria Urine None Seen; Calcium Oxalate Crystals Urine Many; Culture Indicated Urine Cult Not Indicated
[2022-11-30 20:49] LABS: Acetaminophen < 10 ug/mL (10-30); Ethanol (ETOH) < 10 mg/dL
--- NOTE | 2022-11-30 21:58 | P.HP_ITS ---
History of Present Illness History of Present Illness Date Patient Seen: 11/30/22 Time Patient Seen: 21:58 Chief complaint: acute on chronic pancreatitis Narrative: Jael Maldonado is a delightful 37-year-old female with a history of end-stage liver failure hepatic cirrhosis (resolving) secondary to chronic alcohol abuse- sober, chronic pancreatitis, elevated LFTs, macrocytosis, chronic diarrhea, prolonged QT, hx of tobacco abuse, paracentesis x4, cholecystectomy, esophageal GI bleeding, gastrotomy tube with sleeve who presented to the ED department complaining of nausea vomiting for a week worse with eating, jaundice, abd distension (pt suspects ascities), epigastric and left upper quadrant pain and reports having COVID 1 week ago-by home test, negative test 48hrs ago. Also worsening muscle cramping, No BM x 5 days and rapid heart rate. Has been unable to take her Rifaximin due to the nausea and vomiting x 1 week. 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 patient did not require going on the liver transplant list as her liver function has improved, denies recent exposures to Hepatitis, or HX of, arti colored stools. Patient's BP while in the ED was labile 124/84- 147/100, HR 104. Did not meet SIRS criteria. Patient reports sobriety since 2020. On admit rapid HR resolved, nausea & abdominal pain improved denies chest pain, headache, changes in vision, difficulty swallowing, speech impairment, numbness, tingling, difficulty with ambulation, recent falls, head injury, LOC, fever, body aches, chills, recent exposure to illness, urinary incontinence/retention, dysuria, frequency, urgency, hematuria, incontinence, melena, rashes, recent changes to medication, illness, injury, or trauma. I personally Reviewed [facility] notes December 2021: Patient was admitted for syncope ground level fall facial trauma hematoma from [place] ED: H&H 12.6/36.7, PLT 93, AST 160, ALT 70, alk-phos 123, lipase 940, albumin 5.1, bili 5.7. Abdominal ultrasound fatty liver with borderline hepatomegaly without bile duct dilation, EKG prolonged QT, on liver transplant list, echo EF 65%. On admit temp 98.6?, 130/83, 84, 17, 99% on room air. Patient's symptoms have improved is requesting to try a clear liquids, no upper respiratory symptoms of COVID, mild sclera icterus, resting comfortably. HGB 12.6/HCT 35.8, platelets 98, sodium 135, chloride 90, BUN is normal, potassium 2.7, bicarb 36, creatinine and GFR are normal glucose 138, bili 2.4, AST 227, ALT 132, alk-phos & INR are WNL, total protein 8.7, lipase 8799, urine is positive for bili and urobilinogen 4.0, no culture. Sofa score: 2. ABD/Pelvic CT shows subtle stranding around the pancreatic head with no evidence of necrosis. Patient admitted for acute on chronic pancreatitis. PENDING SALE TO [facility] Medical History Abnormal Pap smear of cervix Alcoholic liver failure Anemia Anxiety Chicken pox Chronic diarrhea Chronic pancreatitis due to acute alcohol intoxication GERD (gastroesophageal reflux disease) History of alcohol abuse History of esophageal varices with bleeding Hypotension Liver failure Prolonged Q-T interval on ECG Surgical History History of abdominal paracentesis History of cholecystectomy History of gastrostomy tube placement Family History (Updated 11/30/22 @ 23:54 by PRIETO Aviles) Father COPD (chronic obstructive pulmonary disease) Cancer Grandmother Cancer Grandfather Diabetes mellitus Social History household members: family Smoking Status: Former smoker alcohol intake: former substance use type: does not use Comment: Sober since 03/2021 Meds Home Medications and Allergies Home Medications Medication Instructions Recorded Confirmed Type baclofen 10 mg tablet 10 mg PO TID 11/30/22 11/30/22 History furosemide 20 mg tablet 20 mg PO DAILY 11/30/22 11/30/22 History gabapentin 300 mg capsule 300 mg PO TID 11/30/22 11/30/22 History omeprazole 40 mg capsule,delayed 40 mg PO DAILY 11/30/22 11/30/22 History release quetiapine 50 mg tablet 50 mg PO BEDTIME 11/30/22 11/30/22 History rifaximin 550 mg tablet (Xifaxan) 550 mg PO BID 11/30/22 11/30/22 History spironolactone 50 mg tablet 50 mg PO DAILY 11/30/22 11/30/22 History Allergies Allergy/AdvReac Type Severity Reaction Status Date / Time Penicillins Allergy Verified 11/30/22 17:21 Review of Systems Review of Systems Narrative: All 12 point systems reviewed with the patient and are negative except otherwise documented. Exam Vital Signs (past 8 hours): - 11/30/22 17:08 11/30/22 18:01 11/30/22 18:30 Temperature 98.6 F Pulse Rate 104 H 86 Respiratory Rate 18 42 H Blood Pressure 143/95 H 124/84 Pulse Oximetry 100 95 Oxygen Delivery Method Room Air 11/30/22 18:30 11/30/22 19:00 11/30/22 19:00 Temperature Pulse Rate 85 87 Respiratory Rate 18 20 Blood Pressure 131/91 H Pulse Oximetry 94 98 Oxygen Delivery Method 11/30/22 19:35 11/30/22 19:35 11/30/22 19:37 Temperature Pulse Rate 87 Respiratory Rate Blood Pressure 132/84 147/100 H Pulse Oximetry Oxygen Delivery Method 11/30/22 19:37 11/30/22 20:00 11/30/22 20:19 Temperature Pulse Rate 85 88 Respiratory Rate 21 13 Blood Pressure 130/83 Pulse Oximetry 99 99 Oxygen Delivery Method Room Air 11/30/22 20:19 11/30/22 20:30 11/30/22 21:00 Temperature Pulse Rate 91 H 88 84 Respiratory Rate 23 23 17 Blood Pressure Pulse Oximetry 99 97 97 Oxygen Delivery Method Oxygen Delivery Method Room Air Narrative Exam Narrative: General: Patient is a well-developed, well-nourished delightful female,in no distress at this time. HEENT: Normocephalic, atraumatic, extraocular muscles intact, mild scleral icterus, positive oral pharynx is clear and mucous membranes are moist. Neck is supple and symmetric, trachea is midline, no adenopathy, no thyroid enlargement, nontender, no masses palpated. Negative for JVD Chest: Normal AP diameter and contour without kyphoscoliosis, no nasal flaring, retractions, or tachypneic labored Lungs: Auscultation of all lung lara are clear without adventitious sounds, wheezes, rhonchi, or rales. Cardio: S1 & S2 with regular rate and rhythm without murmur, rubs, or gallops, no carotid bruit, no cardiac pulsations present. Abdomen: Soft, mild pain with palpation to left upper quadrant and epigastric, mild distention negative for organomegaly, or masses. Bowel sounds are hypoactive present in all 4 quadrants without guarding or rebound, no CVA tenderness. Musculoskeletal: Muscle strength and tone are equal within normal limits, no deformity, crepitus, effusions, cyanosis, clubbing or edema present. Full range of motion intact radial and pedal pulses are normal. Skin: Warm dry and intact without rashes, ulcerations or petechiae. mild icterus Neuro: Alert and orientated x3, strength is +5/5 in all extremities, sensation to touch intact, no gross deficits noted of cranial nerves. Psych: Patient has a well-kept appearance, appropriate affect, mental status attitude thought context and judgment are appropriate for age. Objective Labs 11/30/22 17:55 11/30/22 17:55 Labs: Laboratory Results - last 24 hr 11/30/22 11/30/22 11/30/22 17:55 17:55 17:55 WBC 5.8 RBC 3.64 L Hgb 12.6 Hct 35.8 L MCV 98.2 MCH 34.7 H MCHC 35.3 RDW 14.6 Plt Count 98 L Neut % (Auto) 64.1 Lymph % (Auto) 21.7 L [place] % (Auto) 10.3 Eos % (Auto) 3.3 Baso % (Auto) 0.6 Neut # (Auto) 3700 Lymph # (Auto) 1200 [place] # (Auto) 600 Eos # (Auto) 200 Baso # (Auto) 0 PT 13.3 H INR 1.2 Sodium 135 L Potassium 2.7 L* Chloride 90 L Carbon Dioxide 36 H BUN 15 Creatinine 0.68 Estimated GFR > 60 BUN/Creatinine Ratio 22.1 H Glucose 138 H Calcium 10.3 H Total Bilirubin 2.4 H AST 227 H ALT 132 H Alkaline Phosphatase 108 Total Protein 8.7 H Albumin 4.9 Globulin 3.8 Albumin/Globulin Ratio 1.3 Lipase 8799 H Urine Color Urine Appearance Urine pH Ur Specific [place] Urine Protein Urine Glucose (UA) Urine Ketones Urine Occult Blood Urine Nitrate Urine Bilirubin Ur Bilirubin Confirm Urine Urobilinogen Ur Leukocyte Esterase Urine RBC Urine WBC Ur Squamous Epith Cells Calcium Oxalate Crystal Urine Bacteria Ur Culture Indicated? Acetaminophen Ethyl Alcohol 11/30/22 11/30/22 11/30/22 17:55 19:39 19:39 WBC RBC Hgb Hct MCV MCH MCHC RDW Plt Count Neut % (Auto) Lymph % (Auto) [place] % (Auto) Eos % (Auto) Baso % (Auto) Neut # (Auto) Lymph # (Auto) [place] # (Auto) Eos # (Auto) Baso # (Auto) PT INR Sodium Potassium Chloride Carbon Dioxide BUN Creatinine Estimated GFR BUN/Creatinine Ratio Glucose Calcium Total Bilirubin AST ALT Alkaline Phosphatase Total Protein Albumin Globulin Albumin/Globulin Ratio Lipase Urine Color Other Urine Appearance Clear Urine pH 7.0 Ur Specific [place] 1.010 Urine Protein Trace H Urine Glucose (UA) Negative Urine Ketones Trace H Urine Occult Blood Negative Urine Nitrate Negative Urine Bilirubin 1+ H Ur Bilirubin Confirm Positive H Urine Urobilinogen 4.0 H Ur Leukocyte Esterase Trace H Urine RBC 0-1/hpf Urine WBC 0-1/hpf Ur Squamous Epith Cells 5-10 /hpf H Calcium Oxalate Crystal Many H Urine Bacteria None seen Ur Culture Indicated? Cult not indicated Acetaminophen < 10 Ethyl Alcohol < 10 Assessment & Plan Assessment & Plan narrative: Jael Maldonado is a delightful 37-year-old female with a history of end-stage liver failure hepatic cirrhosis (resolving) secondary to chronic alcohol abuse- sober, chronic pancreatitis, elevated LFTs, macrocytosis, chronic diarrhea, prolonged QT, hx of tobacco abuse, paracentesis x4, cholecystectomy, esophageal GI bleeding, gastrotomy tube with sleeve who presented to the ED department complaining of nausea vomiting for a week worse with eating, jaundice, abd distension, epigastric and left upper quadrant pain and reports having COVID 1 week ago. Patient admitted for acute on chronic pancreatitis. Patient will be admitted for hydration, resolution of intractable nausea and vomiting, abdominal ultrasound, and further evaluation and tracking of inflammatory markers and liver enzymes, w/resolution of hypokalemia. Acute on chronic pancreatitis, with mild sepsis, secondary to history of alcohol abuse, present on admission * With upper left and epigastric abdominal pain, distention, scleral icterus, elevated LFT's , N&V: Likely secondary to recent COVID viral infection causing hepatic inflammation. * Admit: bili 2.4, AST 227, ALT 132, alk-phos & INR -WNL, total protein 8.7, lipase 8799, urine is positive for bili and urobilinogen 4.0. (ED: 124/84- 147/100, HR 104) * CRP 1.7, lactate & triglycerides- WNL, amylase 622 * ABD/Pelvic CT shows subtle stranding around the pancreatic head with no evidence of necrosis. * [place] II: 7 * NPO, may advance to clear liquids as tolerated if patient tolerates restart * NS at 250 cc/HR * Abdominal ultrasound ordered for tomorrow * Amylase, CRP, tox screen, ETOH, triglycerides, lactate, A1C, Mag, Hep A&C * Monitor hematocrit and BUN:H&H 12.6/36.7, BUN 15 * Orthostatics ordered as patient has significant history for syncope resulting in trauma, secondary to diuretics Hypokalemia secondary to intractable nausea and vomiting due to acute on chronic pancreatitis, acute, present on admission * Due to gastrointestinal loss * -Admit potassium 2.7 * given 20 mEq in ED, ordered additional 20 mEq * Monitor potassium Liver failure, with elevated LFTs, hyperbilirubinemia, secondary to alcohol abuse, acute on chronic, present on admission * With a history of macrocytosis, liver failure was prior end-stage, liver function has improved patient no longer requires transplant. * Icterus hyperbilirubinemia likely secondary to impaired bilirubin uptake, hepatic inflammation secondary to COVID infection, and inability to take Rifaximin. * Managed by hepatology last Visit 10/2022, ABD u/s 09/2022. * Hold while NPO Rifaximin, lasix, spirolactone, omeprazole * -PH record review 12/2021:H&H 12.6/36.7, PLT 93, AST 160, ALT 70, alk-phos 123, lipase 940, albumin 5.1, bili 5.7. Abdominal ultrasound fatty liver with borderline hepatomegaly without bile duct dilation, reported sobriety since 03/2021 * Admit - bili 2.4, AST 227, ALT 132, alk-phos & INR -WNL, total protein 8.7, urine is positive for bili and urobilinogen 4.0, CRP 1.7, lactate & triglycerides- WNL, amylase 622 * ABD/Pelvic CT shows subtle stranding around the pancreatic head with no evidence of necrosis. Hepatic cirrhosis secondary to alcohol abuse * See above Prolonged QT, chronic, present on admission * Avoid prolonged QT medications Chronic low back pain with sciatica, present on admission * -Hold while NPO: gabapentin, Seroquel, Baclofen Code status:Full Surrogate decision maker: Sister Milla DVT/VTE prophylaxis: Lovenox and SCDs Disposition: Patient admitted for observation we will require IV hydration, cessation intractable nausea vomiting, resolved hypokalemia, and abdominal ultrasound tomorrow. I have utilized all available immediate resources to obtain, update, or review the patient's current medications. I confirmed that the patient's advanced care plan is present, Code status is documented and/or surrogate decision maker is listed in the patient's medical record. I have personally reviewed patient's chart notes from PCP, specialists, diagnostic imaging, and laboratory results.
[2022-11-30] MEDS: METOCLOPRAMIDE 10 MG/2 ML INJ IV (22:12)
[2022-11-30 22:20] LABS: Lactate (Lactic Acid) 1.6 mmol/L (0.7-2.1)
[2022-11-30 22:23] LABS: Amylase 622 U/L (30-110); C-Reactive Protein Quant 1.7 mg/dL (<1.0); Ethanol (ETOH) < 10 mg/dL; Lactate Dehydrogenase 236 U/L (120-246); Magnesium 1.9 mg/dL (1.6-2.3); Triglycerides 101 mg/dL (35-150)
[2022-11-30 22:52] LABS: UR Morphine/Opiate cutoff 300 Negative (Negative); Ur Creatinine 50 (Normal); Urine Amphetamines Negative (Negative); Urine Barbiturates Negative (Negative); Urine Benzodiazepines Negative (Negative); Urine Cocaine Negative (Negative); Urine MDMA Negative (Negative); Urine Methadone Negative (Negative); Urine Methamphetamines Negative (Negative); Urine Oxycodone Negative (Negative); Urine Phencyclidine Negative (Negative); Urine Tetrahydrocannabinol Negative (Negative); Urine Tricyclic Antidepressant Negative (Negative); Urine pH 7 (Normal)
[2022-11-30] MEDS: HYDROMORPHONE 0.5 MG INJ IV (22:55)
[2022-12-01] MEDS: MORPHINE 2 MG/ML INJ 1 MG IV ×2 (01:50→06:56)
[2022-12-01] MEDS: SODIUM CHLORIDE 0.9% 1,000 ML 250 ML IV (01:50)
[2022-12-01] MEDS: HYDROMORPHONE 1 MG INJ 0.5 MG IV (03:50)
[2022-12-01 03:55] VITALS: BP 111/75; PULSE 86; RESP 17; TEMP 36.2; O2SAT 100
[2022-12-01] MEDS: ONDANSETRON 4 MG/2 ML INJ IV ×5 (04:19→21:20)
[2022-12-01 06:36] LABS: Add Manual Diff / Slide Review NO; Basophils Absolute Auto 0 /uL (0-100); Basophils Percent Auto 0.7 % (0-2); Eosinophils Absolute Auto 300 /uL (0-450); Eosinophils Percent Auto 5.2 % (2-4); Hematocrit 32.6 % (36-46); Hemoglobin 11.3 g/dL (12.0-16.0); Lymphocytes Absolute Auto 1800 /uL (1100-4500); Lymphocytes Percent Auto 33.4 % (25-40); Mean Corpuscular HGB Conc 34.6 % (30-36); Mean Corpuscular Hemoglobin 34.6 PG (26-34); Mean Corpuscular Volume 100.1 fL (80-100); Monocytes Absolute Auto 700 /uL (0-900); Monocytes Percent Auto 12.7 % (3-14); Neutrophils Absolute Auto 2600 /uL (1500-7000); Platelet Count 97 X10^3/uL (150-400); Red Blood Cell Count 3.26 X10^6/uL (4.0-5.2); Red Cell Distribution Width 14.9 % (11.6-14.8); White Blood Cell Count 5.4 X10^3/uL (4.5-11.0)
[2022-12-01 06:37] LABS: Amylase 460 U/L (30-110)
[2022-12-01 06:39] LABS: Alanine Aminotransferase 116 IU/L (<35); Albumin 4.3 g/dL (3.5-5.0); Albumin Globulin Ratio 1.3 (1.0-2.8); Alkaline Phosphatase 104 U/L (38-126); Aspartate Aminotransferase 196 IU/L (14-36); BUN Creatinine Ratio 20.6 (6-22); Blood Urea Nitrogen 13 mg/dL (7-17); Calcium 8.7 mg/dL (8.4-10.2); Carbon Dioxide 30 mmol/L (22-32); Chloride 96 mmol/L (98-107); Estimated Glomerular Filt Rate > 60 mL/min (>60); Globulin 3.3 g/dL (1.7-4.1); Glucose 83 mg/dL (70-100); HEMOLYSIS < 15 (0-50); Potassium 2.9 mmol/L (3.4-5.1); Sodium 134 mmol/L (137-145); Total Protein 7.6 g/dL (6.3-8.2)
[2022-12-01 06:47] LABS: NT-proBNP (BNP-Adult 18+) 188 pg/mL (<125)
[2022-12-01] MEDS: SODIUM CHLORIDE 0.9% 1,000 ML 100 ML IV (06:57)
[2022-12-01 07:02] LABS: Lipase 4567 U/L (23-300)
[2022-12-01 07:09] LABS: TSH w/ Reflex to FT4 5.72 uIU/mL (0.47-4.68)
--- NOTE | 2022-12-01 07:12 | P.PN_ITS ---
Subjective Subjective Interval history: Abd pain improving today. Able to tolerate some solids. Had itching and r equesting benadryl. Would like reglan for nausea and stool softeners. Abd US with only cirrhotic liver. Exam Vital Signs (past 8 hours): - 12/01/22 03:55 Temperature 97.2 F L Pulse Rate 86 Respiratory Rate 17 Blood Pressure 111/75 Pulse Oximetry 100 Oxygen Flow Rate 0 Oxygen Delivery Method Room Air Oxygen Flow Rate 0 Narrative Exam Narrative: General: Patient is a well-developed, well-nourished delightful female,in no distress at this time. HEENT: Normocephalic, atraumatic, extraocular muscles intact, mild scleral icterus, positive oral pharynx is clear and mucous membranes are moist. Neck is supple and symmetric, trachea is midline, no adenopathy, no thyroid enlargement, nontender, no masses palpated. Negative for JVD Chest: Normal AP diameter and contour without kyphoscoliosis, no nasal flaring, retractions, or tachypneic labored Lungs: Auscultation of all lung lara are clear without adventitious sounds, wheezes, rhonchi, or rales. Cardio: S1 & S2 with regular rate and rhythm without murmur, rubs, or gallops, no carotid bruit, no cardiac pulsations present. Abdomen: Soft, mild pain with palpation to left upper quadrant and epigastric, mild distention negative for organomegaly, or masses. Bowel sounds are hypoactive present in all 4 quadrants without guarding or rebound, no CVA t enderness. Musculoskeletal: Muscle strength and tone are equal within normal limits, no deformity, crepitus, effusions, cyanosis, clubbing or edema present. Full range of motion intact radial and pedal pulses are normal. Skin: Warm dry and intact without rashes, ulcerations or petechiae. mild ic terus Neuro: Alert and orientated x3, strength is +5/5 in all extremities, sensation to touch intact, no gross deficits noted of cranial nerves. Psych: Patient has a well-kept appearance, appropriate affect, mental status attitude thought context and judgment are appropriate for age. Objective Labs 12/01/22 05:24 12/01/22 18:00 Labs: Laboratory Results - last 24 hr 11/30/22 11/30/22 11/30/22 17:55 17:55 17:55 WBC 5.8 RBC 3.64 L Hgb 12.6 Hct 35.8 L MCV 98.2 MCH 34.7 H MCHC 35.3 RDW 14.6 Plt Count 98 L Neut % (Auto) 64.1 Lymph % (Auto) 21.7 L [place] % (Auto) 10.3 Eos % (Auto) 3.3 Baso % (Auto) 0.6 Neut # (Auto) 3700 Lymph # (Auto) 1200 [place] # (Auto) 600 Eos # (Auto) 200 Baso # (Auto) 0 PT 13.3 H INR 1.2 Sodium 135 L Potassium 2.7 L* Chloride 90 L Carbon Dioxide 36 H BUN 15 Creatinine 0.68 Estimated GFR > 60 BUN/Creatinine Ratio 22.1 H Glucose 138 H Lactate Calcium 10.3 H Magnesium Total Bilirubin 2.4 H AST 227 H ALT 132 H Alkaline Phosphatase 108 Lactate Dehydrogenase C-Reactive Protein NT-Pro-B Natriuret Pep Total Protein 8.7 H Albumin 4.9 Globulin 3.8 Albumin/Globulin Ratio 1.3 Triglycerides Amylase Lipase 8799 H TSH Urine Color Urine Appearance Urine pH Ur Specific [place] Urine Protein Urine Glucose (UA) Urine Ketones Urine Occult Blood Urine Nitrate Urine Bilirubin Ur Bilirubin Confirm Urine Urobilinogen Ur Leukocyte Esterase Urine RBC Urine WBC Ur Squamous Epith Cells Calcium Oxalate Crystal Urine Bacteria Ur Culture Indicated? U Opiates 300ng/mL cut Ur Oxycodone Screen Urine Methadone Screen Acetaminophen Ur Barbiturates Screen U Tricyclic Antidepress Ur Phencyclidine Scrn Ur Amphetamines Screen U Methamphetamines Scrn Ur MDMA Scrn (Ecstasy) U Benzodiazepines Scrn Urine Cocaine Screen U Marijuana (THC) Screen Ethyl Alcohol 11/30/22 11/30/22 11/30/22 17:55 17:55 17:55 WBC RBC Hgb Hct MCV MCH MCHC RDW Plt Count Neut % (Auto) Lymph % (Auto) [place] % (Auto) Eos % (Auto) Baso % (Auto) Neut # (Auto) Lymph # (Auto) [place] # (Auto) Eos # (Auto) Baso # (Auto) PT INR Sodium Potassium Chloride Carbon Dioxide BUN Creatinine Estimated GFR BUN/Creatinine Ratio Glucose Lactate 1.6 Calcium Magnesium 1.9 Total Bilirubin AST ALT Alkaline Phosphatase Lactate Dehydrogenase 236 C-Reactive Protein 1.7 H NT-Pro-B Natriuret Pep Total Protein Albumin Globulin Albumin/Globulin Ratio Triglycerides 101 Amylase 622 H Lipase TSH Urine Color Urine Appearance Urine pH Ur Specific [place] Urine Protein Urine Glucose (UA) Urine Ketones Urine Occult Blood Urine Nitrate Urine Bilirubin Ur Bilirubin Confirm Urine Urobilinogen Ur Leukocyte Esterase Urine RBC Urine WBC Ur Squamous Epith Cells Calcium Oxalate Crystal Urine Bacteria Ur Culture Indicated? U Opiates 300ng/mL cut Ur Oxycodone Screen Urine Methadone Screen Acetaminophen < 10 Ur Barbiturates Screen U Tricyclic Antidepress Ur Phencyclidine Scrn Ur Amphetamines Screen U Methamphetamines Scrn Ur MDMA Scrn (Ecstasy) U Benzodiazepines Scrn Urine Cocaine Screen U Marijuana (THC) Screen Ethyl Alcohol < 10 < 10 11/30/22 11/30/22 11/30/22 19:39 19:39 19:39 WBC RBC Hgb Hct MCV MCH MCHC RDW Plt Count Neut % (Auto) Lymph % (Auto) [place] % (Auto) Eos % (Auto) Baso % (Auto) Neut # (Auto) Lymph # (Auto) [place] # (Auto) Eos # (Auto) Baso # (Auto) PT INR Sodium Potassium Chloride Carbon Dioxide BUN Creatinine Estimated GFR BUN/Creatinine Ratio Glucose Lactate Calcium Magnesium Total Bilirubin AST ALT Alkaline Phosphatase Lactate Dehydrogenase C-Reactive Protein NT-Pro-B Natriuret Pep Total Protein Albumin Globulin Albumin/Globulin Ratio Triglycerides Amylase Lipase TSH Urine Color Other Urine Appearance Clear Urine pH 7.0 Ur Specific [place] 1.010 Urine Protein Trace H Urine Glucose (UA) Negative Urine Ketones Trace H Urine Occult Blood Negative Urine Nitrate Negative Urine Bilirubin 1+ H Ur Bilirubin Confirm Positive H Urine Urobilinogen 4.0 H Ur Leukocyte Esterase Trace H Urine RBC 0-1/hpf Urine WBC 0-1/hpf Ur Squamous Epith Cells 5-10 /hpf H Calcium Oxalate Crystal Many H Urine Bacteria None seen Ur Culture Indicated? Cult not indicated U Opiates 300ng/mL cut Negative Ur Oxycodone Screen Negative Urine Methadone Screen Negative Acetaminophen Ur Barbiturates Screen Negative U Tricyclic Antidepress Negative Ur Phencyclidine Scrn Negative Ur Amphetamines Screen Negative U Methamphetamines Scrn Negative Ur MDMA Scrn (Ecstasy) Negative U Benzodiazepines Scrn Negative Urine Cocaine Screen Negative U Marijuana (THC) Screen Negative Ethyl Alcohol 12/01/22 12/01/22 12/01/22 05:24 05:24 05:24 WBC 5.4 RBC 3.26 L Hgb 11.3 L Hct 32.6 L MCV 100.1 H MCH 34.6 H MCHC 34.6 RDW 14.9 H Plt Count 97 L Neut % (Auto) 48.0 L Lymph % (Auto) 33.4 [place] % (Auto) 12.7 Eos % (Auto) 5.2 H Baso % (Auto) 0.7 Neut # (Auto) 2600 Lymph # (Auto) 1800 [place] # (Auto) 700 Eos # (Auto) 300 Baso # (Auto) 0 PT INR Sodium 134 L Potassium 2.9 L Chloride 96 L Carbon Dioxide 30 BUN 13 Creatinine 0.63 Estimated GFR > 60 BUN/Creatinine Ratio 20.6 Glucose 83 Lactate Calcium 8.7 Magnesium Total Bilirubin 2.0 H AST 196 H ALT 116 H Alkaline Phosphatase 104 Lactate Dehydrogenase C-Reactive Protein NT-Pro-B Natriuret Pep 188 H Total Protein 7.6 Albumin 4.3 Globulin 3.3 Albumin/Globulin Ratio 1.3 Triglycerides Amylase Lipase 4567 H TSH 5.72 H Urine Color Urine Appearance Urine pH Ur Specific [place] Urine Protein Urine Glucose (UA) Urine Ketones Urine Occult Blood Urine Nitrate Urine Bilirubin Ur Bilirubin Confirm Urine Urobilinogen Ur Leukocyte Esterase Urine RBC Urine WBC Ur Squamous Epith Cells Calcium Oxalate Crystal Urine Bacteria Ur Culture Indicated? U Opiates 300ng/mL cut Ur Oxycodone Screen Urine Methadone Screen Acetaminophen Ur Barbiturates Screen U Tricyclic Antidepress Ur Phencyclidine Scrn Ur Amphetamines Screen U Methamphetamines Scrn Ur MDMA Scrn (Ecstasy) U Benzodiazepines Scrn Urine Cocaine Screen U Marijuana (THC) Screen Ethyl Alcohol 12/01/22 05:24 WBC RBC Hgb Hct MCV MCH MCHC RDW Plt Count Neut % (Auto) Lymph % (Auto) [place] % (Auto) Eos % (Auto) Baso % (Auto) Neut # (Auto) Lymph # (Auto) [place] # (Auto) Eos # (Auto) Baso # (Auto) PT INR Sodium Potassium Chloride Carbon Dioxide BUN Creatinine Estimated GFR BUN/Creatinine Ratio Glucose Lactate Calcium Magnesium Total Bilirubin AST ALT Alkaline Phosphatase Lactate Dehydrogenase C-Reactive Protein NT-Pro-B Natriuret Pep Total Protein Albumin Globulin Albumin/Globulin Ratio Triglycerides Amylase 460 H D Lipase TSH Urine Color Urine Appearance Urine pH Ur Specific [place] Urine Protein Urine Glucose (UA) Urine Ketones Urine Occult Blood Urine Nitrate Urine Bilirubin Ur Bilirubin Confirm Urine Urobilinogen Ur Leukocyte Esterase Urine RBC Urine WBC Ur Squamous Epith Cells Calcium Oxalate Crystal Urine Bacteria Ur Culture Indicated? U Opiates 300ng/mL cut Ur Oxycodone Screen Urine Methadone Screen Acetaminophen Ur Barbiturates Screen U Tricyclic Antidepress Ur Phencyclidine Scrn Ur Amphetamines Screen U Methamphetamines Scrn Ur MDMA Scrn (Ecstasy) U Benzodiazepines Scrn Urine Cocaine Screen U Marijuana (THC) Screen Ethyl Alcohol PFSH Medical History Abnormal Pap smear of cervix Alcoholic liver failure Anemia Anxiety Chicken pox Chronic diarrhea Chronic pancreatitis due to acute alcohol intoxication GERD (gastroesophageal reflux disease) History of alcohol abuse History of esophageal varices with bleeding Hypotension Liver failure Prolonged Q-T interval on ECG Surgical History History of abdominal paracentesis History of cholecystectomy History of gastrostomy tube placement Family History (Updated 11/30/22 @ 23:54 by PRIETO Aviles) Father COPD (chronic obstructive pulmonary disease) Cancer Grandmother Cancer Grandfather Diabetes mellitus Social History household members: family Smoking Status: Former smoker alcohol intake: former substance use type: does not use Assessment & Plan Assessment & Plan narrative: Jael Maldonado is a delightful 37-year-old female with a history of end-stage liver failure hepatic cirrhosis (resolving) secondary to chronic alcohol abuse- sober, chronic pancreatitis, elevated LFTs, macrocytosis, chronic diarrhea, prolonged QT, hx of tobacco abuse, paracentesis x4, cholecystectomy, esophageal GI bleeding, gastrotomy tube with sleeve who presented to the ED department complaining of nausea vomiting for a week worse with eating, jaundice, abd distension, epigastric and left upper quadrant pain and reports having COVID 1 week ago. Patient admitted for acute on chronic pancreatitis. Patient will be admitted for hydration, resolution of intractable nausea and vomiting, abdominal ultrasound, and further evaluation and tracking of inflammatory markers and liver enzymes, w/resolution of hypokalemia. Acute on chronic pancreatitis, secondary to history of alcohol abuse, present on admission * With upper left and epigastric abdominal pain, distention, scleral icterus, elevated LFT's , N&V: Likely secondary to recent COVID viral infection causing hepatic inflammation. * Admit: bili 2.4, AST 227, ALT 132, alk-phos & INR -WNL, total protein 8.7, lipase 8799, urine is positive for bili and urobilinogen 4.0. (ED: 124/84- 147/100, HR 104) * CRP 1.7, lactate & triglycerides- WNL, amylase 622 * ABD/Pelvic CT shows subtle stranding around the pancreatic head with no evidence of necrosis. * ANVIK II: 7 * Advanced diet to low residue * continue 150cc/hr NS * abd US without biliary dilitation, shows cirrhotic liver Hypokalemia secondary to intractable nausea and vomiting due to acute on chronic pancreatitis, acute, present on admission * Due to gastrointestinal loss * admit potassium 2.7 * given 20 mEq in ED, ordered additional 40 TID * Monitor potassium Liver failure, with elevated LFTs, hyperbilirubinemia, secondary to alcohol abuse, acute on chronic, present on admission * With a history of macrocytosis, liver failure was prior end-stage, liver function has improved patient no longer requires transplant. * Icterus hyperbilirubinemia likely secondary to impaired bilirubin uptake, hepatic inflammation secondary to COVID infection, and inability to take Rifaximin. * Managed by hepatology [facility] last Visit 10/2022, ABD u/s 09/2022. * Hold while NPO Rifaximin, lasix, spirolactone, omeprazole * [facility] record review 12/2021:H&H 12.6/36.7, PLT 93, AST 160, ALT 70, alk-phos 123, lipase 940, albumin 5.1, bili 5.7. Abdominal ultrasound fatty liver with borderline hepatomegaly without bile duct dilation, reported sobriety since 03/2021 * Admit - bili 2.4, AST 227, ALT 132, alk-phos & INR -WNL, total protein 8.7, urine is positive for bili and urobilinogen 4.0, CRP 1.7, lactate & triglycerides- WNL, amylase 622 * ABD/Pelvic CT shows subtle stranding around the pancreatic head with no evidence of necrosis. Hepatic cirrhosis secondary to alcohol abuse * See above Prolonged QT, chronic, present on admission * Avoid prolonged QT medications Chronic low back pain with sciatica, present on admission * Hold while NPO: gabapentin, Seroquel, Baclofen Code status:Full Surrogate decision maker: Sister Milla DVT/VTE prophylaxis: Lovenox and SCDs I have discussed with the hospital multidisciplinary care team including social work rounds. Dispo: Home in 1-2 days following improvement in pancreatitis. Quality VTE Deep Vein Thrombosis/Pulmonary Embolism Present on Admission: No
[2022-12-01 07:35] LABS: Free T4, Direct Thyroxine 1.55 ng/dL (0.78-2.19)
--- NOTE | 2022-12-01 08:00 | DI.US.S_ITS ---
PROCEDURE: US ABDOMEN LIMITED INDICATIONS: PANCREATITIS TECHNIQUE: Real-time focused scanning was performed of the abdomen, with image documentation. COMPARISON: normal limits [facility], CT, CT ABDOMEN PELVIS W CON, , 19:36[facility], US, US ABDOMEN LIMITED, 05/23/2021, 22:47. FINDINGS: The liver measures 18 cm. There is significantly increased echogenicity. Gallbladder is absent. CBD measures 6 mm. Visualized pancreas within normal limits by ultrasound. IMPRESSION: Significant increased hepatic echogenicity most commonly due to steatosis. The gallbladder is absent. CBD within normal limits measuring up to [address] separately dictated. The pancreas is without acute sonographic findings. Dictated by: Eddie Nix M.D. on 12/01/2022 at 7:58 Approved by: Eddie Nix M.D. on 12/01/2022 at 7:59
[2022-12-01] MEDS: HYDROMORPHONE 0.5 MG INJ 1 MG IV ×2 (08:26→12:01)
[2022-12-01] MEDS: BACLOFEN 10 MG TABLET PO ×3 (08:30→21:21)
[2022-12-01] MEDS: ENOXAPARIN 40 MG/0.4 ML SYRINGE SUBCUT (08:30)
[2022-12-01] MEDS: PANTOPRAZOLE DR 40 MG TABLET PO (08:31)
[2022-12-01] MEDS: GABAPENTIN 300 MG CAPSULE PO ×3 (08:31→21:20)
[2022-12-01] MEDS: RIFAXIMIN 550 MG TABLET PO ×2 (08:31→21:20)
[2022-12-01 08:34] VITALS: BP 116/82; PULSE 87; RESP 18; TEMP 36.4; O2SAT 100
[2022-12-01] MEDS: POTASSIUM CHLORIDE 20 MEQ TAB 40 MEQ PO ×3 (08:37→15:07)
[2022-12-01] MEDS: diphenhydrAMINE 25 MG TABLET PO ×3 (09:34→19:52)
[2022-12-01] MEDS: DOCUSATE 100 MG CAPSULE PO ×2 (09:34→21:31)
--- NOTE | 2022-12-01 11:09 | CM.DANOTE ---
DCP: Case received, EMR reviewed and met patient. Introduced self and role. Completed DCP assessment based upon information currently available. Patient is a 37 year old female who admitted yesterday evening to the care of the hospitalist team. PCP: Dr. Diego, [facility]. Payer: confirmed: [employer]. Patient came to the hospital via private vehicle secondary to having concerns about having Pancreatitis. Patient has history of alcohol abuse, notes indicate that she has been sober for 20 months. Patient also has history of cirrhosis secondary to alcohol abuse. Patient had noted an increase in her lipase, and LFTs. Patient had been complaining of increased nausea and abdominal pain. Patient was diagnosed with acute on chronic pancreatitis with mild sepsis. Met briefly with patient. She was sitting on her bed, alert and oriented, nauseated. Asked for this DC Back Tufter to give her a emesis bag. Asked patient a couple questions, patient stated, I don't mean to be rude, but I have been here before, and you all ask the same questions. Confirmed thas she resides here in [place], and she does have a provider at [facility], but did not want to engage further in conversation. She does live with family. P: DCP to continue to follow for any needs or resources. Patient should be able to go home when deemed medically stable. Sindhu Allen RN/Release And Technical Records Clerk Discharge Planning/Care Management CM Discharge Assessment Start: 12/01/22 11:07 Freq: Status: Active Protocol: Document 12/01/22 11:07 (Rec: 12/01/22 11:09 [id number]) Discharge Planning Assessment Assigned Market Basket Maker Michael Allen RN/Release And Technical Records Clerk Advance Directives? No History Provided By Patient,Medical Record Prior Living Arrangements House Household Members family Type of transporation used prior to Drives own vehicle admit Independent with ADL's Yes Is patient alert and oriented? Yes Caregiver for Another No Barriers to Discharge No Transportation Arrangement Family Referrals Initiated None needed Whiteboard Updated in Patient Room with Yes name and ext. # of Market Basket Maker Review Status In Process Next Review Type Continued Stay Review
[2022-12-01] MEDS: METOCLOPRAMIDE 10 MG/2 ML INJ IV (12:13)
[2022-12-01] MEDS: polyethylene glycoL 3350 17 GM POWD.PACK PO ×2 (12:19→23:16)
[2022-12-01] MEDS: SENNOSIDES 8.6 MG TABLET PO ×2 (12:19→21:32)
[2022-12-01] MEDS: SODIUM CHLORIDE 0.9% 1,000 ML 150 ML IV ×3 (12:21→23:17)
[2022-12-01 15:00] VITALS: BP 114/79; PULSE 89; RESP 18; TEMP 35.7; O2SAT 100
[2022-12-01] MEDS: HYDROMORPHONE 1 MG INJ IV ×3 (15:35→21:24)
[2022-12-01 16:34] VITALS: O2SAT 100
[2022-12-01 18:17] LABS: HEMOLYSIS 25 (0-50); Potassium 3.6 mmol/L (3.4-5.1)
--- NOTE | 2022-12-01 18:39 | PC.NURSE ---
offered oxycodone, but pt declined.
[2022-12-01 20:00] VITALS: BP 113/80; PULSE 95; RESP 18; TEMP 36.7; O2SAT 100
[2022-12-01 20:48] LABS: x Labcorp Estim. Avg Glu (eAG) 91 mg/dL (.); x Labcorp Hemoglobin A1c 4.8 % (4.8-5.6)
[2022-12-01] MEDS: QUETIAPINE 25 MG TABLET 50 MG PO (23:47)
[2022-12-02] MEDS: ONDANSETRON 4 MG/2 ML INJ IV ×6 (00:36→20:58)
[2022-12-02] MEDS: HYDROMORPHONE 1 MG INJ IV ×4 (00:39→11:30)
[2022-12-02 02:00] VITALS: BP 123/79; PULSE 100; RESP 18; TEMP 36.5; O2SAT 100
[2022-12-02] MEDS: METOCLOPRAMIDE 10 MG/2 ML INJ IV ×2 (02:20→11:36)
[2022-12-02 04:33] LABS: Hepatitis A Ab IgM Negative (Negative); Hepatitis A Ab Total Positive (Negative)
[2022-12-02] MEDS: SODIUM CHLORIDE 0.9% 1,000 ML 150 ML IV ×3 (05:52→19:38)
[2022-12-02] MEDS: BACLOFEN 10 MG TABLET PO ×3 (06:04→20:58)
--- NOTE | 2022-12-02 06:05 | PC.NURSE ---
Pt. requested her Baclofen, states I normally takes it first thing when I wake up. Baclofen administered. will report to day RN.
[2022-12-02 06:56] LABS: Add Manual Diff / Slide Review NO; Basophils Absolute Auto 0 /uL (0-100); Basophils Percent Auto 0.6 % (0-2); Eosinophils Absolute Auto 200 /uL (0-450); Eosinophils Percent Auto 5.1 % (2-4); Hematocrit 35.2 % (36-46); Hemoglobin 12.1 g/dL (12.0-16.0); Lymphocytes Absolute Auto 1500 /uL (1100-4500); Lymphocytes Percent Auto 35.1 % (25-40); Mean Corpuscular HGB Conc 34.2 % (30-36); Mean Corpuscular Hemoglobin 34.9 PG (26-34); Mean Corpuscular Volume 101.8 fL (80-100); Monocytes Absolute Auto 600 /uL (0-900); Monocytes Percent Auto 13.7 % (3-14); Neutrophils Absolute Auto 2000 /uL (1500-7000); Neutrophils Percent Auto 45.5 % (50-75); Platelet Count 110 X10^3/uL (150-400); Red Blood Cell Count 3.46 X10^6/uL (4.0-5.2); Red Cell Distribution Width 15.3 % (11.6-14.8); White Blood Cell Count 4.4 X10^3/uL (4.5-11.0)
[2022-12-02 07:35] LABS: Alanine Aminotransferase 122 IU/L (<35); Albumin 4.2 g/dL (3.5-5.0); Albumin Globulin Ratio 1.3 (1.0-2.8); Alkaline Phosphatase 111 U/L (38-126); Aspartate Aminotransferase 190 IU/L (14-36); BUN Creatinine Ratio 10.9 (6-22); Blood Urea Nitrogen 7 mg/dL (7-17); Calcium 8.7 mg/dL (8.4-10.2); Carbon Dioxide 25 mmol/L (22-32); Chloride 104 mmol/L (98-107); Estimated Glomerular Filt Rate > 60 mL/min (>60); Globulin 3.3 g/dL (1.7-4.1); Glucose 80 mg/dL (70-100); HEMOLYSIS < 15 (0-50); Potassium 3.5 mmol/L (3.4-5.1); Sodium 138 mmol/L (137-145); Total Protein 7.5 g/dL (6.3-8.2)
[2022-12-02 07:58] VITALS: BP 120/83; PULSE 87; RESP 18; TEMP 36.7; O2SAT 100
[2022-12-02] MEDS: GABAPENTIN 300 MG CAPSULE PO ×3 (08:21→20:57)
[2022-12-02] MEDS: RIFAXIMIN 550 MG TABLET PO ×2 (08:21→20:57)
[2022-12-02] MEDS: PANTOPRAZOLE DR 40 MG TABLET PO (08:21)
[2022-12-02] MEDS: FUROSEMIDE 20 MG TABLET PO (08:32)
[2022-12-02] MEDS: diphenhydrAMINE 25 MG TABLET PO ×3 (09:44→20:58)
[2022-12-02] MEDS: SENNOSIDES 8.6 MG TABLET PO ×2 (09:44→20:57)
[2022-12-02] MEDS: DOCUSATE 100 MG CAPSULE PO ×2 (09:44→20:58)
[2022-12-02] MEDS: polyethylene glycoL 3350 17 GM POWD.PACK PO ×2 (09:45→20:58)
[2022-12-02] MEDS: SPIRONOLACTONE 25 MG TABLET 50 MG PO (09:58)
[2022-12-02] MEDS: ENOXAPARIN 40 MG/0.4 ML SYRINGE SUBCUT (09:59)
[2022-12-02 13:00] VITALS: BP 114/78; PULSE 86; RESP 17; TEMP 36.6; O2SAT 100
[2022-12-02] MEDS: OXYCODONE IR 10 MG TABLET PO ×3 (14:09→22:14)
--- NOTE | 2022-12-02 16:01 | P.PN_ITS ---
Exam Vital Signs (past 8 hours): - 12/02/22 13:00 Temperature 97.8 F Pulse Rate 86 Respiratory Rate 17 Blood Pressure 114/78 Pulse Oximetry 100 Oxygen Flow Rate 0 Oxygen Delivery Method Room Air Oxygen Flow Rate 0 Narrative Exam Narrative: General: Patient is a well-developed, well-nourished delightful female,in no distress at this time. HEENT: Normocephalic, atraumatic, extraocular muscles intact, mild scleral icterus, positive oral pharynx is clear and mucous membranes are moist. Neck is supple and symmetric, trachea is midline, no adenopathy, no thyroid enlargement, nontender, no masses palpated. Negative for JVD Chest: Normal AP diameter and contour without kyphoscoliosis, no nasal flaring, retractions, or tachypneic labored Lungs: Auscultation of all lung lara are clear without adventitious sounds, wheezes, rhonchi, or rales. Cardio: S1 & S2 with regular rate and rhythm without murmur, rubs, or gallops, no carotid bruit, no cardiac pulsations present. Abdomen: Soft, mild pain with palpation to left upper quadrant and epigastric, mild distention negative for organomegaly, or masses. Bowel sounds are hypoactive present in all 4 quadrants without guarding or rebound, no CVA tenderness. Musculoskeletal: Muscle strength and tone are equal within normal limits, no deformity, crepitus, effusions, cyanosis, clubbing or edema present. Full range of motion intact radial and pedal pulses are normal. Skin: Warm dry and intact without rashes, ulcerations or petechiae. mild icterus Neuro: Alert and orientated x3, strength is +5/5 in all extremities, sensation to touch intact, no gross deficits noted of cranial nerves. Psych: Patient has a well-kept appearance, appropriate affect, mental status attitude thought context and judgment are appropriate for age. Objective Labs 12/02/22 06:10 12/02/22 06:10 Labs: Laboratory Results - last 24 hr 11/30/22 12/01/22 12/01/22 17:55 05: 18:00 WBC RBC Hgb Hct MCV MCH MCHC RDW Plt Count Neut % (Auto) Lymph % (Auto) [place] % (Auto) Eos % (Auto) Baso % (Auto) Neut # (Auto) Lymph # (Auto) [place] # (Auto) Eos # (Auto) Baso # (Auto) Sodium Potassium 3.6 Chloride Carbon Dioxide BUN Creatinine Estimated GFR BUN/Creatinine Ratio Glucose Hgb A1c (Ref Lab) 4.8 Estim Average Glucose 91 Calcium Total Bilirubin AST ALT Alkaline Phosphatase Total Protein Albumin Globulin Albumin/Globulin Ratio Hepatitis A Total & IgM Positive A Hep A IgM Ab Confirm Negative 12/02/22 12/02/22 06:10 06:10 WBC 4.4 L RBC 3.46 L Hgb 12.1 Hct 35.2 L MCV 101.8 H MCH 34.9 H MCHC 34.2 RDW 15.3 H Plt Count 110 L Neut % (Auto) 45.5 L Lymph % (Auto) 35.1 [place] % (Auto) 13.7 Eos % (Auto) 5.1 H Baso % (Auto) 0.6 Neut # (Auto) 2000 Lymph # (Auto) 1500 [place] # (Auto) 600 Eos # (Auto) 200 Baso # (Auto) 0 Sodium 138 Potassium 3.5 Chloride 104 Carbon Dioxide 25 BUN 7 Creatinine 0.64 Estimated GFR > 60 BUN/Creatinine Ratio 10.9 Glucose 80 Hgb A1c (Ref Lab) Estim Average Glucose Calcium 8.7 Total Bilirubin 2.0 H AST 190 H ALT 122 H Alkaline Phosphatase 111 Total Protein 7.5 Albumin 4.2 Globulin 3.3 Albumin/Globulin Ratio 1.3 Hepatitis A Total & IgM Hep A IgM Ab Confirm [facility] Medical History Abnormal Pap smear of cervix Alcoholic liver failure Anemia Anxiety Chicken pox Chronic diarrhea Chronic pancreatitis due to acute alcohol intoxication GERD (gastroesophageal reflux disease) History of alcohol abuse History of esophageal varices with bleeding Hypotension Liver failure Prolonged Q-T interval on ECG Surgical History History of abdominal paracentesis History of cholecystectomy History of gastrostomy tube placement Family History (Updated 11/30/22 @ 23:54 by PRIETO Aviles) Father COPD (chronic obstructive pulmonary disease) Cancer Grandmother Cancer Grandfather Diabetes mellitus Social History household members: family Smoking Status: Former smoker alcohol intake: former substance use type: does not use Assessment & Plan Assessment & Plan narrative: Jael Maldonado is a delightful 37-year-old female with a history of end-stage liver failure hepatic cirrhosis (resolving) secondary to chronic alcohol abuse- sober, chronic pancreatitis, elevated LFTs, macrocytosis, chronic diarrhea, prolonged QT, hx of tobacco abuse, paracentesis x4, cholecystectomy, esophageal GI bleeding, gastrotomy tube with sleeve who presented to the ED department co mplaining of nausea vomiting for a week worse with eating, jaundice, abd distension, epigastric and left upper quadrant pain and reports having COVID 1 week ago. Patient admitted for acute on chronic pancreatitis. Patient will be admitted for hydration, resolution of intractable nausea and vomiting, abdominal ultrasound, and further evaluation and tracking of inflammatory markers and liver enzymes, w/resolution of hypokalemia. Acute on chronic pancreatitis, secondary to history of alcohol abuse, present on admission * With upper left and epigastric abdominal pain, distention, scleral icterus, elevated LFT's , N&V: Likely secondary to recent COVID viral infection causing hepatic inflammation. * Admit: bili 2.4, AST 227, ALT 132, alk-phos & INR -WNL, total protein 8.7, lipase 8799, urine is positive for bili and urobilinogen 4.0. (ED: 124/84- 147/100, HR 104) * CRP 1.7, lactate & triglycerides- WNL, amylase 622 * ABD/Pelvic CT shows subtle stranding around the pancreatic head with no evid ence of necrosis. * MODOC II: 7 * Advanced diet to low residue * continue 150cc/hr NS * abd US without biliary dilitation, shows cirrhotic liver * patient will attempt to use more po pain meds instead of IV Hypokalemia secondary to intractable nausea and vomiting due to acute on chronic pancreatitis, acute, present on admission. Resolved. * Due to gastrointestinal loss * admit potassium 2.7 * given 20 mEq in ED, ordered additional 40 TID * potassium now normal * Monitor potassium Liver cirrhosis, with elevated LFTs, hyperbilirubinemia, secondary to alcohol abuse, acute on chronic, present on admission * With a history of macrocytosis, liver failure was prior end-stage, liver function has improved patient no longer requires transplant. * Icterus hyperbilirubinemia likely secondary to impaired bilirubin uptake, hepatic inflammation secondary to COVID infection, and inability to take Rifaximin. * Managed by hepatology Dr. Corrales [facility] last Visit 10/2022, ABD u/s 09/2022. * continue Rifaximin, lasix, spirolactone, omeprazole * [facility] record review 12/2021:H&H 12.6/36.7, PLT 93, AST 160, ALT 70, alk-phos 123, lipase 940, albumin 5.1, bili 5.7. Abdominal ultrasound fatty liver with borderline hepatomegaly without bile duct dilation, reported sobriety since 03/2021 * Admit - bili 2.4, AST 227, ALT 132, alk-phos & INR -WNL, total protein 8.7, urine is positive for bili and urobilinogen 4.0, CRP 1.7, lactate & triglycerides- WNL, amylase 622 * ABD/Pelvic CT shows subtle stranding around the pancreatic head with no evidence of necrosis. Hepatic cirrhosis secondary to alcohol abuse * See above Prolonged QT, chronic, present on admission * Avoid prolonged QT medications Chronic low back pain with sciatica, present on admission * continue gabapentin, Seroquel PRN, Baclofen Code status:Full Surrogate decision maker: Sister Milla DVT/VTE prophylaxis: Lovenox and SCDs I have discussed with the hospital multidisciplinary care team including social work rounds. Dispo: Home on 12/03. Quality VTE Deep Vein Thrombosis/Pulmonary Embolism Present on Admission: No
[2022-12-02 20:06] VITALS: BP 127/84; PULSE 91; RESP 21; TEMP 36.7; O2SAT 98
[2022-12-02] MEDS: OXYCODONE IR 5 MG TABLET PO (20:36)
[2022-12-02] MEDS: HYDROMORPHONE 0.5 MG INJ IV (20:45)
[2022-12-03] MEDS: ONDANSETRON 4 MG/2 ML INJ IV ×4 (00:13→12:58)
[2022-12-03] MEDS: OXYCODONE IR 5 MG TABLET PO ×4 (00:13→12:07)
[2022-12-03 02:00] VITALS: BP 115/75; PULSE 92; RESP 18; TEMP 36.2; O2SAT 99
[2022-12-03] MEDS: OXYCODONE IR 10 MG TABLET PO ×3 (02:20→09:52)
[2022-12-03] MEDS: METOCLOPRAMIDE 10 MG/2 ML INJ IV ×2 (04:07→12:11)
[2022-12-03 06:01] LABS: Add Manual Diff / Slide Review NO; Basophils Absolute Auto 0 /uL (0-100); Basophils Percent Auto 0.8 % (0-2); Eosinophils Absolute Auto 300 /uL (0-450); Eosinophils Percent Auto 5.5 % (2-4); Hematocrit 32.8 % (36-46); Hemoglobin 11.3 g/dL (12.0-16.0); Lymphocytes Absolute Auto 1700 /uL (1100-4500); Lymphocytes Percent Auto 34.9 % (25-40); Mean Corpuscular HGB Conc 34.5 % (30-36); Mean Corpuscular Hemoglobin 35.1 PG (26-34); Mean Corpuscular Volume 101.8 fL (80-100); Monocytes Absolute Auto 700 /uL (0-900); Monocytes Percent Auto 14.4 % (3-14); Neutrophils Absolute Auto 2100 /uL (1500-7000); Neutrophils Percent Auto 44.4 % (50-75); Platelet Count 161 X10^3/uL (150-400); Red Blood Cell Count 3.23 X10^6/uL (4.0-5.2); Red Cell Distribution Width 15.5 % (11.6-14.8); White Blood Cell Count 4.8 X10^3/uL (4.5-11.0)
[2022-12-03 06:11] LABS: Alanine Aminotransferase 102 IU/L (<35); Albumin 3.8 g/dL (3.5-5.0); Albumin Globulin Ratio 1.3 (1.0-2.8); Alkaline Phosphatase 98 U/L (38-126); Aspartate Aminotransferase 120 IU/L (14-36); Bilirubin Total 1.7 mg/dL (0.2-1.3); Blood Urea Nitrogen 6 mg/dL (7-17); Calcium 8.4 mg/dL (8.4-10.2); Carbon Dioxide 24 mmol/L (22-32); Chloride 105 mmol/L (98-107); Estimated Glomerular Filt Rate > 60 mL/min (>60); Glucose 81 mg/dL (70-100); HEMOLYSIS 16 (0-50); Potassium 3.6 mmol/L (3.4-5.1); Sodium 138 mmol/L (137-145); Total Protein 6.8 g/dL (6.3-8.2)
[2022-12-03 08:00] VITALS: BP 137/95; PULSE 83; RESP 18; O2SAT 100
[2022-12-03] MEDS: polyethylene glycoL 3350 17 GM POWD.PACK PO (08:08)
[2022-12-03] MEDS: PANTOPRAZOLE DR 40 MG TABLET PO (08:08)
[2022-12-03] MEDS: SPIRONOLACTONE 25 MG TABLET 50 MG PO (08:08)
[2022-12-03] MEDS: diphenhydrAMINE 25 MG TABLET PO (08:08)
[2022-12-03] MEDS: DOCUSATE 100 MG CAPSULE PO (08:08)
[2022-12-03] MEDS: ENOXAPARIN 40 MG/0.4 ML SYRINGE SUBCUT (08:09)
[2022-12-03] MEDS: BACLOFEN 10 MG TABLET PO (08:09)
[2022-12-03] MEDS: GABAPENTIN 300 MG CAPSULE PO (08:09)
[2022-12-03] MEDS: RIFAXIMIN 550 MG TABLET PO (08:09)
[2022-12-03] MEDS: FUROSEMIDE 20 MG TABLET PO (08:12)
[2022-12-03] MEDS: ACETAMINOPHEN 325 MG TABLET 650 MG PO (11:49)
--- NOTE | 2022-12-03 13:16 | PC.NURSE ---
Day shift: Paperwork signed and all questions answered. Pt has MD scripts. Pt is going to walk herself home today. Pt has all personal belongings. Left unit via at approx 1315. BRIDGET Adan is taking her.
--- NOTE | 2022-12-03 14:35 | P.DS_ITS ---
History of Present Illness History of Present Illness Chief complaint: acute on chronic pancreatitis Narrative: Per history and physical: Jael Maldonado is a delightful 37-year-old female with a history of end-stage liver failure hepatic cirrhosis (resolving) secondary to chronic alcohol abuse- sober, chronic pancreatitis, elevated LFTs, macrocytosis, chronic diarrhea, prolonged QT, hx of tobacco abuse, paracentesis x4, cholecystectomy, esophageal GI bleeding, gastrotomy tube with sleeve who presented to the ED department complaining of nausea vomiting for a week worse with eating, jaundice, abd distension (pt suspects ascities), epigastric and left upper quadrant pain and reports having COVID 1 week ago-by home test, negative test 48hrs ago. Also worsening muscle cramping, No BM x 5 days and rapid heart rate. Has been unable to take her Rifaximin due to the nausea and vomiting x 1 week.? Patient's h epatologist Dr. Savanna HANEY, last appt 10/2022, ABD u/s neg for ascities. patient did not require going on the liver transplant list as her liver function has improved, denies recent exposures to Hepatitis, or HX of, arti colored stools. Patient's BP while in the ED was labile 124/84- 147/100, HR 104.? Did not meet SIRS criteria.? Patient reports sobriety since 2020. ?On admit rapid HR resolved, nausea & abdominal pain improved denies chest pain, headache, changes in vision, difficulty swallowing, speech impairment, numbness, tingling, difficulty with ambulation, recent falls, head injury, LOC, fever, body aches, chills, recent exposure to illness, urinary incontinence/retention, dysuria, frequency, urgency, hematuria, incontinence, melena, rashes, recent changes to medication, illness, injury, or trauma. I personally Reviewed [facility] notes December 2021:? Patient was admitted for syncope ground level fall facial trauma hematoma from [place] ED:? H&H 12.6/36.7, PLT 93, AST 160, ALT 70, alk-phos 123, lipase 940, albumin 5.1, bili 5.7.? Abdominal ultrasound fatty liver with borderline hepatomegaly without bile duct dilation, EKG prolonged QT, on liver transplant list, echo EF 65%. On admit temp 98.6?, 130/83, 84, 17, 99% on room air.? Patient's symptoms have improved is requesting to try a clear liquids, no upper respiratory symptoms of COVID, mild sclera icterus, resting comfortably.? HGB 12.6/HCT 35.8, platelets 98, sodium 135, chloride 90, BUN is normal, potassium 2.7, bicarb 36, creatinine and GFR are normal glucose 138, bili 2.4, AST 227, ALT 132, alk-phos & INR are WNL, total protein 8.7, lipase 8799, urine is positive for bili and urobilinogen 4.0, no culture.? Sofa score: 2.? ABD/Pelvic CT shows subtle stranding around the pancreatic head with no evidence of necrosis. Patient admitted for acute on chronic pancreatitis. Discharge Providers Provider Date of admission: 11/30/22 21:04 Discharge Date: 12/03/22 Discharge provider: Lakisha Albrecht MD Summary Hospital Course Discharge Diagnosis: 1. Acute on chronic pancreatitis 2. Hypokalemia secondary to intractable nausea and vomiting, resolved 3 liver cirrhosis with elevated LFTs, hyperbilirubinemia, secondary to prolonged alcohol dependence now in remission 4. Alcohol dependence, in remission 5. Prolonged QT, present on admission 6. Chronic low back pain with sciatica, present on admission Hospital Course: Patient has a history of cirrhosis secondary to prolonged alcohol dependence. She is been sober for the last 20 months. She recently developed abdominal pain, nausea vomiting. She was unable to take her usual meds and developed some scleral icterus. She attributed that to being unable to take meds. However she developed increasing upper epigastric pain radiating into her back. She ultimately [employer] and learned that the symptoms were consistent with pancreatitis. She presented to the emergency department on November 30 and was fou nd to have transaminitis within a AST of 227, ALT of 132, total bilirubin of 2.4, and a lipase of 8799. CT of the abdomen and pelvis reveals subtle stranding around the pancreatic head consistent pancreatitis. No evidence of pancreatic necrosis. She was admitted for further care. She showed significant improvement by December 01. Abdominal ultrasound was done which revealed a surgically absent gallbladder, significant increased hepatic echogenicity most consistent with steatosis. Normal common bile duct measurement. Patient was able to tolerate her diet being advanced. Her LFTs were improving and her lipase was down to 4567. She is transitioned off of IV analgesics and overall did well. She did require a dose of IV hydromorphone last evening after eating meat loaf and mashed potatoes. On the date of discharge, patient reported she was feeling nearly back to baseline. She was tolerating food and liquids. Her LFTs once again showed improvement, with total bilirubin 1.7, AST 120, ALT of 102 and normal alkaline phosphatase. Patient was encouraged to eat a low-fat diet. She was encouraged to return for worsening symptoms. She is discharged in stable condition. Status at Discharge Cognitive/behavioral status at discharge: at baseline, oriented Functional status at discharge: independent ambulation Overall status at discharge: patient is progressing back to baseline Time Spent with Patient Time spent: Less than 30 minutes Exam Vital Signs (past 8 hours): - 12/03/22 08:00 Pulse Rate 83 Respiratory Rate 18 Blood Pressure 137/95 H Pulse Oximetry 100 Oxygen Flow Rate 0 Oxygen Delivery Method Room Air Oxygen Flow Rate 0 Narrative Exam Narrative: GEN: Very pleasant adult female, Alert and oriented x 3, NAD HEENT:NC, Face symmetric CHEST: Respiratory excursions symmetric, CTAB CV: RRR, no M/R/G ABD: Soft, minimal epigastric tenderness/ND, BT present in all 4 quadrants, no organomegaly or masses EXTR: warm, well perfused, no C/C/E SKIN: warm and dry, no rash NEURO: Alert and oriented x 3, nonfocal Objective Labs 12/03/22 05:50 12/03/22 05:50 Labs: Laboratory Results - last 24 hr 12/03/22 12/03/22 05:50 05:50 WBC 4.8 RBC 3.23 L Hgb 11.3 L Hct 32.8 L MCV 101.8 H MCH 35.1 H MCHC 34.5 RDW 15.5 H Plt Count 161 Neut % (Auto) 44.4 L Lymph % (Auto) 34.9 [place] % (Auto) 14.4 H Eos % (Auto) 5.5 H Baso % (Auto) 0.8 Neut # (Auto) 2100 Lymph # (Auto) 1700 [place] # (Auto) 700 Eos # (Auto) 300 Baso # (Auto) 0 Sodium 138 Potassium 3.6 Chloride 105 Carbon Dioxide 24 BUN 6 L Creatinine 0.67 Estimated GFR > 60 BUN/Creatinine Ratio 9.0 Glucose 81 Calcium 8.4 Total Bilirubin 1.7 H AST 120 H ALT 102 H Alkaline Phosphatase 98 Total Protein 6.8 Albumin 3.8 Globulin 3.0 Albumin/Globulin Ratio 1.3 PFSH Medical History Abnormal Pap smear of cervix Alcoholic liver failure Anemia Anxiety Chicken pox Chronic diarrhea Chronic pancreatitis due to acute alcohol intoxication GERD (gastroesophageal reflux disease) History of alcohol abuse History of esophageal varices with bleeding Hypotension Liver failure Prolonged Q-T interval on ECG Surgical History History of abdominal paracentesis History of cholecystectomy History of gastrostomy tube placement Family History (Updated 11/30/22 @ 23:54 by PRIETO Aviles) Father COPD (chronic obstructive pulmonary disease) Cancer Grandmother Cancer Grandfather Diabetes mellitus Social History household members: family Smoking Status: Former smoker alcohol intake: former substance use type: does not use Discharge Plan Discharge Plan Patient Disposition: Home Provider Discharge Comment: Continue a low fat diet. If you have worsening pain or nausea, go back to clear liquids until your symptoms resolve. Return to the ED for uncontrolled pain, fevers, or inability to hold down food/fluids. Discharge orders & Medications Prescriptions: New metoclopramide HCl 5 mg tablet 5 mg PO QAC Qty: 20 0RF Rx Instructions: administer 30 minutes before meals oxycodone 5 mg tablet 5 mg PO Q8H PRN (Reason: pain) Qty: 20 0RF Continued omeprazole 40 mg capsule,delayed release(DR/EC) 40 mg PO DAILY Patient Comments: TAKE ONE CAPSULE BY MOUTH ONE TIME DAILY baclofen 10 mg tablet 10 mg PO TID Patient Comments: TAKE ONE TABLET BY MOUTH THREE TIMES DAILY gabapentin 300 mg capsule 300 mg PO TID furosemide 20 mg tablet 20 mg PO DAILY spironolactone 50 mg tablet 50 mg PO DAILY quetiapine 50 mg tablet 50 mg PO BEDTIME Patient Comments: Take 1 tablet (50 mg total) by mouth nightly Xifaxan 550 mg tablet 550 mg PO BID Diet/Activity/Treatments Diet: Diet as Tolerated and Low-fat Activity: As tolerated Oxygen: N/A Visit Report/Discharge Packet Instructions: Chronic Pancreatitis, Fat-Restricted Diet, DI for Pancreatitis, DI for Prescription Opioid Use Stand Alone Forms: Patient Portal/API Discharges patient from system. Discharge Date/Time: 12/03/22 13:17 Quality VTE Deep Vein Thrombosis/Pulmonary Embolism Present on Admission: No
--- NOTE | 2022-12-05 08:29 | PM.EVENT ---
Event Note Event Note (Rapid Response, Code, or fall): Received a phone call from the patient this morning. She has had increasing abdominal pain. Is requesting a refill for oxycodone and Reglan. Refill of Reglan 5 mg tablets to be given a.c. and HS number 30 provided. Oxycodone 10 mg tablets q.6 as needed number 30 provided. Recommended she resume a clear liquid diet for the next couple of days. Encouraged her to let her pain be her guide and when her pain is improved she can slowly advance her diet back to low-fat. Advised if she is unable to hold down fluids or meds, or if she is having worsening pain, she should return to the emergency department for assessment. She agrees.
[2022-12-06 16:30] LABS: HCV Genotype NOT INDICATED
== END 2022-12-03 13:17 | disposition home or self-care (01) | DRG 282 ==
LOC: ED 21:03 → AC 21:05
PROVIDERS: Emergency Medicine; Admitting Provider Nurse Practitioner Family; Emergency Provider Emergency Medicine; Referring Provider Emergency Medicine; Visit Provider Nurse Practitioner Family
DX: K85.20 Alcohol induced acute pancreatitis without necrosis or infection (principal); E87.6 Hypokalemia; K70.40 Alcoholic hepatic failure without coma; E80.6 Other disorders of bilirubin metabolism; K70.30 Alcoholic cirrhosis of liver without ascites; R94.31 Abnormal electrocardiogram [ECG] [EKG]; G89.29 Other chronic pain; K86.0 Alcohol-induced chronic pancreatitis; F10.21 Alcohol dependence, in remission; M54.40 Lumbago with sciatica, unspecified side; K21.9 Gastro-esophageal reflux disease without esophagitis; F41.9 Anxiety disorder, unspecified; Y90.0 Blood alcohol level of less than 20 mg/100 ml; Z20.822 Contact with and (suspected) exposure to COVID-19; Z86.16 Personal history of COVID-19; Z87.891 Personal history of nicotine dependence
CPT/HCPCS: 36415; 74177; 76705; 80053; 80305; 80320; 80329; 81001; 81003; 81025; 82150; 83036; 83605; 83615; 83690; 83735; 83880; 84132; 84439; 84443; 84478; 85025; 85610; 86140; 86708; 87522; 93005; 93010; 96365; 96366; 96375; 96376; 99284; C9113; G0480; J1170; J1650; J2270; J2405; J2765; Q9967

== ENCOUNTER → 2024-02-21 15:42 | Outpatient (CLI) | payer OTHER, MEDICAID, SELFPAY ==
[2024-02-21 15:42] VITALS: BMI 25.8
== END ==
LOC: LAB 15:44
PROVIDERS: Referring Provider Nurse Practitioner; Visit Provider Nurse Practitioner
DX: K70.31 Alcoholic cirrhosis of liver with ascites (principal)
CPT/HCPCS: 36415

== ENCOUNTER → 2024-04-17 17:34 | Outpatient (CLI) | payer OTHER, MEDICAID, SELFPAY ==
[2024-02-21 15:42] VITALS: BMI 25.8
== END ==
PROVIDERS: Referring Provider Nurse Practitioner; Visit Provider Nurse Practitioner
DX: K70.31 Alcoholic cirrhosis of liver with ascites (principal)
CPT/HCPCS: 80321